=== PATIENT | female | born 1935 | race Caucasian/White ===

== ENCOUNTER → 2016-08-25 | Day surgery (SDC) | payer OTHER, MEDICARE ==
[2016-08-19 11:26] VITALS: Ht 165.1 cm; Wt 90.0 kg
[~2016-08-25] VITALS: Ht 165.1 cm; Wt 90.0 kg
[~2016-08-25] MED LIST: ACET-1175 PO; ALPR-411 PO; AMLO-114 PO; AMOX500C3 PO; BUPR100T8 PO; CALC12502 PO; CHOL100010 PO; CHOL200010 PO; CLCC1250 PO; CLON1TAB3 PO; CYAN10005 PO; DIPH25CA37 PO; DIPH25CA5 PO; FENT75DI2 PO; FURO20TA PO; GABA1CAP5 PO; IVIG IV; LEVA45AE INH; LIDO1PAD2 TOP; LIDO5DIS10 TD; LIDOCAINE HCL 2% 2 ML VIAL (20MG/ML) ONE; LTMOPS OP; LURA1TAB PO; NF656; OXYC-106 PO; POLY335025 PO; PROPOFOL IV EMULSION 10 MG/ML 20 ML VIAL IV ONE; TPRSR25 PO; XPNIN INH; ZINC1TAB PO
--- NOTE | 2016-08-25 11:35 | Endo History and Physical ---
History & Physical Date of Service: Aug 25, 2016. Chief Complaint: history of colon polyps Referring Physician: Dr. Janice Magana History of Present Illness h/o polyps Past Medical History Neurological Disorder, Arthritis, Gastrointestinal Disorder, Reflux, Hypertension, COPD, Thyroid Disease Past Surgical History Hx Cardiac Surgery: No Hx Internal Defibrillator: No Hx Pacemaker: No Hx Abdominal Surgery: Yes (OPEN MOISÉS) Hx of Implantable Prosthesis: No Hx Post-Op Nausea and Vomiting: No Hx Cancer Surgery: No Hx Thoracic Surgery: No Hx Orthopedic: Yes (LEFT ANJU, RT TKA, RT/LEFT ULNAR NERVE TRANSP, LEFT/RT CATARACT) Hx Urinary Tract Surgery: No Family History Colon CA, Polyp Social History Smoking Status: Current Some Day Smoker Hx Substance Use: Yes (SEE MED REC) Hx Alcohol Use: No Allergies Coded Allergies: Prednisolone (Verified Allergy, Severe, ANAPHYLAXIS, 08/19/16) Prednisone (Verified Allergy, Severe, ANAPHYLAXIS, 08/19/16) Shellfish (Verified Allergy, Mild, RASH, 08/19/16) Tomato (Verified Allergy, Mild, RASH, 08/19/16) COOKED TOMATO PRODUCTS Metronidazole (Verified Allergy, Unknown, RASH, FEVER, 08/19/16) Current Medications Reported Home Medications Medications Dose Route/Sig Max Daily Dose Days Date Category Dose Instructions Lotemax (Loteprednol Etabonate) 150 Drops/10 Ml Susp 1 Drops OP QID PRN 08/19/16 Reported Wellbutrin Sr (Bupropion HCl) 100 Mg Ertab 100 Mg PO QAM 08/19/16 Reported Latuda (Lurasidone Hcl) 20 Mg Tab 20 Mg PO HS 03/24/16 Reported Metoprolol Succinate ER (Metoprolol Succinate) 25 Mg Tabcr 1.5 Tab PO QAM 12/04/15 Reported Zinc (Zinc Gluconate) 50 Mg Tab 50 Mg PO QAM 08/18/15 Reported Xopenex Hfa (Levalbuterol Tartrate) Aer 2 Puff INH Q6 PRN 08/18/15 Reported Amoxil (Amoxicillin) 500 Mg Cap 2,000 Mg PO DAILY PRN 08/18/15 Reported Neurontin (Gabapentin) 400 Mg Cap 1 Dose PO BID 30 05/23/15 Reported 1 TAB IN AM 1-2 TAB IN PM PRN Percocet 10MG/325MG (Oxycodone/Acetaminophen) Tab 1 Tab PO DAILY PRN 04/09/15 Reported Fentanyl 75 Mcg Tdsy 75 Mg PO [id number] 04/09/15 Reported Norvasc (Amlodipine Besylate) 10 Mg Tab 10 Mg PO HS 11/04/14 Reported Benadryl (Diphenhydramine Hcl) 25 Mg Cap 1 Cap PO DIRECTED 06/29/13 Reported TO TAKE BEFORE IVIG INFUSION Tylenol (Acetaminophen) 325 Mg Tab 650 Mg PO DIRECTED PRN 06/29/13 Reported TO TAKE PRIOR TO IVIG INFUSION [Ivig] 30 Gm IV Q4WK 06/29/13 Reported Lasix (Furosemide) 20 Mg Tab 20 Mg PO QAM 06/29/13 Reported Lidoderm Patch 5% Patch (Lidocaine) 1 Patch Tdsy 1 Patch TD PRN 06/29/13 Reported Miralax (Polyethylene Glycol 3350) 1 Pow Pow 17 Gm PO BID PRN 05/31/13 Reported Os-Jeff 500 * (Calcium Carbonate) 500 Mg Tab 500 Mg PO BID 05/20/11 Reported Vitamin B-12 (Cyanocobalamin) 1,000 Mcg Tab 1,000 Mcg PO QAM 03/30/10 Reported Vitamin D (Cholecalciferol) 1,000 Inter.unit Tab 2,000 Inter.unit PO QAM 03/30/10 Reported Klonopin (Clonazepam) 1 Mg Tab 0.5 Mg PO HS 03/30/10 Reported Xanax (Alprazolam) 0.5 Mg Tab 0.5 Mg PO TID PRN 10/28/08 Reported Vital Signs Weight (Kilograms): 90 Height (Feet): 5 Height (Inches): 5 Date Time Temp Pulse Resp B/P Pulse Ox O2 Delivery O2 Flow Rate FiO2 08/25/16 10:17 36 62 20 128/61 96 Room Air Physical Exam General Appearance: no apparent distress Respiratory/Chest: Auscultation: breath sounds normal Cardiovascular: Heart Auscultation: RRR Abdomen: Inspection & Palpation: soft Assessment and Plan H/o polyps - cscopy
--- NOTE | 2016-08-25 12:04 | Discharge Instructions ---
Endoscopy Patient Instructions Date / Procedure(s) Performed Aug 25, 2016. Colonoscopy Allergy Information Coded Allergies: Prednisolone (Verified Allergy, Severe, ANAPHYLAXIS, 08/19/16) Prednisone (Verified Allergy, Severe, ANAPHYLAXIS, 08/19/16) Shellfish (Verified Allergy, Mild, RASH, 08/19/16) Tomato (Verified Allergy, Mild, RASH, 08/19/16) COOKED TOMATO PRODUCTS Metronidazole (Verified Allergy, Unknown, RASH, FEVER, 08/19/16) Discharge Date / Findings Aug 25, 2016. Colon polyps, diverticulosis Provider Instructions Activity Restrictions - No exercising or heavy lifting for 24 hours. - Do not drink alcohol the day of the procedure. - Do not drive a car or operate machinery until the day after the procedure. - Do not make any important decisions or sign important papers in 24 hours after the procedure. Following Day: - Return to full activity which may include returning to work/school. Diet Start your diet with liquids and light foods (jello, soup, juice, toast). Then eat your usual diet if not nauseated. Treatment For Common After Affects For mild abdominal pain, bloating, or excessive gas: - Rest - Eat lightly - Lie on right side Follow-Up Information Follow-up with Dr. Janice Magana as scheduled Anesthesia Information What You Should Know You have had a procedure that required some medicine to reduce anxiety and discomfort. This treatment is called moderate sedation. After receiving the treatment, you may be sleepy, but you will be able to breathe on your own. The effects of the treatment may last for several hours. Follow these instructions along with Activity/Diet recommendations noted above: * Do NOT do anything where dizziness or clumsiness would be dangerous. * Rest quietly at home today, then you can be up and about tomorrow. * Have a responsible person stay with you the rest of today. * You may have had an I.V. today. If so, you may take the dressing off later today. Recommendations Call your doctor if: * Trouble breathing * Continuous vomiting for more than 24 hours * Temperature above 101 degrees * Severe abdominal pain or bloating * Pain not relieved by pain medicine ordered * There is increased drainage or redness from any incision * A large amount of rectal bleeding greater than 2-3 tablespoons. (If you had a polyp/s removed or have hemorrhoids, a small amount of blood - from the rectum is to be expected.) * You have any unanswered questions or concerns. IN THE EVENT OF A SERIOUS EMERGENCY, GO TO THE NEAREST EMERGENCY ROOM Your discharge instructions were prepared by provider Radha Curtis. Patient Instructions Signature Page Shira Patel Patient (or Guardian) Signature/Date: I have read and understand the instructions given to me by my caregivers. Caregiver/RN/Doctor Signature/Date: The above-named patient and/or guardian has received patient instructions on this date. + Original Patient Signature Page (only) stays with chart. Please make copy for patient.
--- NOTE | 2016-08-25 12:04 | GI REPORT ---
Procedure Date: 08/25/2016 11:37 AM Procedure: Colonoscopy Indications: High risk colon cancer surveillance: Personal history of colonic polyps Medicines: See the Anesthesia note for documentation of the administered medications Complications: No immediate complications. Estimated Blood Loss: Estimated blood loss: none. Procedure: Pre-Anesthesia Assessment: - ASA Grade Assessment: III - A patient with severe systemic disease. After I obtained informed consent, the scope was passed under direct vision. Throughout the procedure, the patient's blood pressure, pulse, and oxygen saturations were monitored continuously. The scope was introduced through the anus and advanced to the terminal ileum. The colonoscopy was performed without difficulty. The patient tolerated the procedure well. The quality of the bowel preparation was good. Findings: The perianal and digital rectal examinations were normal. Multiple small and large-mouthed diverticula were found in the entire colon. Two sessile polyps were found in the transverse colon and in the ascending colon. The polyps were 1 to 2 mm in size. These polyps were removed with a cold biopsy forceps. Resection and retrieval were complete. The exam was otherwise without abnormality. Impression: - Diverticulosis in the entire examined colon. - Two 1 to 2 mm polyps in the transverse colon and in the ascending colon, removed with a cold biopsy forceps. Resected and retrieved. - The examination was otherwise normal. Recommendation: - Discharge patient to home. Radha Schroeder M.D. Radha Schroeder MD 08/25/2016 12:03:29 PM This report has been signed electronically. Note Initiated On: 08/25/2016 11:37 AM
[2016-08-25 12:39] VITALS: BP 127/47; PULSE 62; O2SAT 97
--- NOTE | 2016-08-25 12:44 | Anesthesiology Progress Note ---
Anesthesia Post Op Note Date & Time Aug 25, 2016 at 12:43 Vital Signs Pain Intensity: 0 Vital Signs Past 12 Hours Date Time Temp Pulse Resp B/P Pulse Ox O2 Delivery O2 Flow Rate FiO2 08/25/16 12:39 62 20 127/47 97 Room Air 08/25/16 12:25 59 20 117/47 97 Room Air 08/25/16 12:11 60 20 115/47 96 Room Air 08/25/16 10:17 36 62 20 128/61 96 Room Air Notes Mental Status: alert / awake / arousable Nausea / Vomiting: adequately controlled Pain: adequately controlled Airway Patency, RR, SpO2: stable & adequate BP & HR: stable & adequate Hydration State: stable & adequate Anesthetic Complications: no major complications apparent
== END | disposition home or self-care (01) ==
LOC: C.GI 08:50
PROVIDERS: ATTEND Internal Medicine Gastroenterology
DX: Z12.11 Encounter for screening for malignant neoplasm of colon (principal); Z86.010 Personal history of colon polyps; K57.90 Diverticulosis of intestine, part unspecified, without perforation or abscess without bleeding; D12.3 Benign neoplasm of transverse colon; J44.9 Chronic obstructive pulmonary disease, unspecified; I10 Essential (primary) hypertension; M19.90 Unspecified osteoarthritis, unspecified site; F41.9 Anxiety disorder, unspecified; F32.9 Major depressive disorder, single episode, unspecified; Z90.49 Acquired absence of other specified parts of digestive tract; Z96.642 Presence of left artificial hip joint; Z96.651 Presence of right artificial knee joint; Z98.41 Cataract extraction status, right eye; Z98.42 Cataract extraction status, left eye; Z80.0 Family history of malignant neoplasm of digestive organs; F17.200 Nicotine dependence, unspecified, uncomplicated; Z91.013 Allergy to seafood; Z91.018 Allergy to other foods; Z68.33 Body mass index [BMI] 33.0-33.9, adult

== ENCOUNTER → 2016-10-07 | Outpatient (CLI) | payer OTHER, MEDICARE ==
[~2016-10-07] MED LIST changes: -AMOX500C3 PO; -CALC12502 PO; -CHOL200010 PO; -DIPH25CA5 PO; -LEVA45AE INH; -LIDO1PAD2 TOP; -LIDOCAINE HCL 2% 2 ML VIAL (20MG/ML) ONE; -NF656; -PROPOFOL IV EMULSION 10 MG/ML 20 ML VIAL IV ONE
[2016-10-07 11:09] LABS: MEAN CELL VOLUME 90.9 fL (80-100); MEAN CORPUSCULAR HEMOGLOBIN 30.4 pg (25-34); MEAN CORPUSCULAR HGB CONC 33.4 g/dl (32-36); PLATELET COUNT 295 K/uL (130-400); RED BLOOD COUNT 4.51 M/uL (4.2-5.4); WHITE BLOOD COUNT 10.29 K/uL (4.8-10.8)
[2016-10-07 11:33] LABS: ESTIMATED AVERAGE GLUCOSE 123 mg/dl; HA1C FLAG Normal (Normal)
[2016-10-07 11:49] LABS: ALT/SGPT 18 U/L (12-78); BLOOD UREA NITROGEN 15 mg/dl (7-18); BUN/CREATININE RATIO 17.1 (10-20); CALCIUM 9.1 mg/dl (8.5-10.1); CARBON DIOXIDE 26 mmol/L (21-32); CHLORIDE 104 mmol/L (98-107); CHOLESTEROL 187 mg/dl (0-200); CREATININE 0.86 mg/dl (0.60-1.20); GLUCOSE 103 mg/dl (70-99); POTASSIUM 4.5 mmol/L (3.5-5.1); SODIUM 140 mmol/L (136-145)
[2016-10-07 11:59] LABS: ALKALINE PHOSPHATASE 78 U/L (45-117); AST/SGOT 16 U/L (15-37); CHOLESTEROL/HDL RATIO 2.9; HDL CHOLESTEROL 65 mg/dl; LDL CHOLESTEROL CALCULATED 102 mg/dl; TRIGLYCERIDES 98 mg/dl (0-150); VERY LOW DENSITY LIPOPROT CALC 20 mg/dl
--- NOTE | 2016-10-12 10:33 | CODING QUERY MEDICAL NECESSITY ---
SUPPORTING DIAGNOSIS NEEDED A supporting diagnosis is required for the test/procedure performed on this patient in order for us to be reimbursed by the patient's insurance. Please provide a supporting diagnosis for the following test/procedure listed below next to the test name along with your signature. *If there is no additional diagnosis for this patient that would support the following test/procedure please document that below next to the test/procedure. Test(s)/Procedure(s) that require a supporting diagnosis: * GLYCATED HEMOGLOBIN DIAGNOSIS: * DOS: 10/07/16 Provider Signature: Date: Thank you Cherelle Cordoba Health Information Management Once completed, please kindly fax back to [phone] For questions please call [phone]
== END | disposition home or self-care (01) ==
LOC: C.LAB 10:17
PROVIDERS: ATTEND Family Medicine
DX: Z13.1 Encounter for screening for diabetes mellitus (principal); I10 Essential (primary) hypertension; G61.81 Chronic inflammatory demyelinating polyneuritis; M81.0 Age-related osteoporosis without current pathological fracture; Z13.220 Encounter for screening for lipoid disorders

== ENCOUNTER 2017-08-13 17:36 | Emergency (ER) | payer OTHER, MEDICARE ==
[~2017-08-13] VITALS: Ht 165.1 cm; Wt 89.8 kg
[~2017-08-13 17:36] MED LIST changes: -CLON1TAB3 PO; -FENT75DI2 PO
[2017-08-13 17:39] VITALS: TEMP 36.9; Ht 165.1 cm; Wt 89.8 kg
[2017-08-13] MEDS ORDERED: ALBUT/IPRATROP 3MG/0.5MG NEB 3 ML VIAL INH STA (17:51)
[2017-08-13 18:10] VITALS: O2SAT 95
[2017-08-13 18:20] LABS: BASO % 0.5 %; BASO ABS # 0.04 K/uL (0-0.2); COMPLETE YES; EOS % 1.6 %; IG% 0.3 %; LYMPH % 29.1 %; LYMPH ABS # 2.16 K/uL (1.2-3.4); MEAN CELL VOLUME 96.3 fL (80-100); MEAN CORPUSCULAR HEMOGLOBIN 32.6 pg (25-34); MEAN CORPUSCULAR HGB CONC 33.8 g/dl (32-36); MEAN PLATELET VOLUME 8.8 fL (7.4-10.4); MONO % 9.9 %; NEUT % 58.6 %; PLATELET COUNT 239 K/uL (130-400); RED BLOOD COUNT 4.36 M/uL (4.2-5.4); WHITE BLOOD COUNT 7.41 K/uL (4.8-10.8)
[2017-08-13] MEDS ORDERED: DIPH25CA5 PO (18:28)
[2017-08-13] MEDS ORDERED: CHOL200010 PO (18:28)
[2017-08-13] MEDS ORDERED: NF656 (18:28)
[2017-08-13] MEDS ORDERED: LEVA45AE INH (18:28)
[2017-08-13] MEDS ORDERED: LIDO1PAD2 TOP (18:28)
[2017-08-13] MEDS ORDERED: CALC12502 PO (18:28)
[2017-08-13 18:39] LABS: ALT/SGPT 20 U/L (12-78); AST/SGOT 16 U/L (15-37); BLOOD UREA NITROGEN 11 mg/dl (7-18); BUN/CREATININE RATIO 12.2 (10-20); CALCIUM 8.9 mg/dl (8.5-10.1); CARBON DIOXIDE 25 mmol/L (21-32); CHLORIDE 105 mmol/L (98-107); GLUCOSE 182 mg/dl (70-99); POTASSIUM 3.3 mmol/L (3.5-5.1); SODIUM 136 mmol/L (136-145)
[2017-08-13 18:44] LABS: ALB/GLOB RATIO 0.9 (0.9-2); ALKALINE PHOSPHATASE 76 U/L (45-117)
[2017-08-13] MEDS ORDERED: OXYMETAZOLINE HCL 0.05% NA SPR 15 ML BTL STA (19:38)
--- NOTE | 2017-08-13 19:40 | EMERGENCY ROOM VISIT NOTE ---
History First contact with patient: 17:43 Chief Complaint: RESPIRATORY PROBLEMS Stated Complaint: CONGESTION,FEVER,DIFFICULTY BREATHING Nursing Triage Summary: Triage Notes: Patient presents ambulatory to triage with family with c/o "I have been sick for over a week and spoke to my PCP yesterday. I was prescribed Doxycycline and advised by my PCP to report to the ED if wheezing worsened. It has and I am here" History of Present Illness The patient is a 81 year old female who presents to the Emergency Room via private vehicle accompanied by male with complaints of "congestion, fever, difficulty breathing". The patient states about 7 days ago she began with nasal drainage, that progressed to sore throat and now seems to settle in her chest. She states that she now has wheezing. She has a history of COPD. She states that when she lays down at night it seems to make a little bit worse. She states that last night she slept 2.5 hours because of her current symptoms. She notes minimal pain rate in the sternal region consistent with her URI. There is associated nausea from coughing so much. She denies abdominal pain, or vomiting. She notes that her family doctor called her in doxycycline yesterday but informed her that if the wheezing were to worsen she is to go to the hospital. Review of Systems A complete 10-point Review of Systems was discussed with the patient, with pertinent positives and negatives listed in the History of Present Illness. All remaining Review of Systems questions can be considered negative unless otherwise specified. Past Medical/Surgical History Medical Problems: (1) MGUS (monoclonal gammopathy of unknown significance) Family History Noncontributory Social History Smoking Status: Current Every Day Smoker Alcohol Use: none Marital Status: single Current/Historical Medications Scheduled Amlodipine (Norvasc), 10 MG PO HS Bupropion (Wellbutrin Sr), 150 MG PO QAM Calcium Carbonate (Os-Jeff 500), 500 MG PO BID Cholecalciferol (Vitamin D), 1 CAP PO DAILY Cyanocobalamin (Vitamin B-12), 1,000 MCG PO QAM Diphenhydramine Hcl (Benadryl), 25 MG PO DIRECTED Furosemide (Lasix), 20 MG PO QAM Gabapentin (Neurontin), 1 DOSE PO BID Lidocaine (Lidocaine), 1 PATCH TOP TID Lurasidone Hcl (Latuda), 40 MG PO HS Metoprolol Succinate (Metoprolol Succinate ER), 50 MG PO QAM Zinc Gluconate (Zinc), 50 MG PO QAM [Ivig], 30 GM IV Q4WK Scheduled PRN Acetaminophen (Tylenol), 650 MG PO DIRECTED PRN for Pain Alprazolam (Xanax), 0.5 MG PO TID PRN for Anxiety Levalbuterol Tartrate (Levalbuterol Tartrate Hfa), 2 PUFFS INH Q6 PRN for Shortness of Breath Loteprednol Etabonate (Lotemax), 1 DROPS OP QID PRN for PRN Oxycodone/Acetaminophen 10MG/325MG (Percocet 10MG/325MG), 1 TAB PO DAILY PRN for Pain Polyethylene Glycol 3350 (Miralax), 17 GM PO BID PRN for Constipation Physical Exam Vital Signs Date Time Temp Pulse Resp B/P (MAP) Pulse Ox O2 Delivery O2 Flow Rate FiO2 08/13/17 19:54 72 20 150/68 98 08/13/17 19:24 74 08/13/17 18:19 98 Room Air 08/13/17 18:17 77 20 150/68 98 Room Air 08/13/17 18:10 95 Room Air 08/13/17 17:39 36.9 89 20 173/83 95 Room Air Physical Exam VITAL SIGNS - Vital signs and nursing notes were reviewed. Stable. Hypertensive. GENERAL - 81-year-old female appearing her stated age who is in no acute distress. Communicates well with provider and answers questions appropriately. SKIN - Without rashes. LUNGS - Chest wall symmetric without accessory muscle use, intercostals retractions, or central cyanosis. Expiratory wheezes noted bilaterally. CARDIAC - RRR with S1/S2. No murmur, rubs, or gallops appreciated. EXTREMITIES - No clubbing or peripheral cyanosis. No pretibial edema present. + 5/5 strength noted in UE/LE bilaterally. Medical Decision & Procedures ER Provider Diagnostic Interpretation: CHEST 2 VIEWS ROUTINE HISTORY: Cough, fever, congestion COMPARISON: None. FINDINGS: The lungs are clear. Cardiac silhouette is normal in size. No pleural effusions. No pneumothorax. Scoliosis. The lungs remain mildly hyperexpanded. Old compression deformity within the lower thoracic spine, unchanged. IMPRESSION: No significant change compared to the prior study. No acute process. Electronically signed by: Shawn Presley M.D. 08/13/2017 8:22 PM Dictated Date/Time: 08/13/2017 8:21 PM Laboratory Results 08/13/17 18:10 Red Blood Count 4.36, Mean Corpuscular Volume 96.3, Mean Corpuscular Hemoglobin 32.6, Mean Corpuscular Hemoglobin Concent 33.8, Mean Platelet Volume 8.8, Neutrophils (%) (Auto) 58.6, Lymphocytes (%) (Auto) 29.1, Monocytes (%) (Auto) 9.9, Eosinophils (%) (Auto) 1.6, Basophils (%) (Auto) 0.5, Neutrophils # (Auto) 4.34, Lymphocytes # (Auto) 2.16, Monocytes # (Auto) 0.73, Eosinophils # (Auto) 0.12, Basophils # (Auto) 0.04 08/13/17 18:10 Test 08/13/17 18:10 White Blood Count 7.41 K/uL (4.8-10.8) Red Blood Count 4.36 M/uL (4.2-5.4) Hemoglobin 14.2 g/dL (12.0-16.0) Hematocrit 42.0 % (37-47) Mean Corpuscular Volume 96.3 fL (80-100) Mean Corpuscular Hemoglobin 32.6 pg (25-34) Mean Corpuscular Hemoglobin Concent 33.8 g/dl (32-36) Platelet Count 239 K/uL (130-400) Mean Platelet Volume 8.8 fL (7.4-10.4) Neutrophils (%) (Auto) 58.6 % Lymphocytes (%) (Auto) 29.1 % Monocytes (%) (Auto) 9.9 % Eosinophils (%) (Auto) 1.6 % Basophils (%) (Auto) 0.5 % Neutrophils # (Auto) 4.34 K/uL (1.4-6.5) Lymphocytes # (Auto) 2.16 K/uL (1.2-3.4) Monocytes # (Auto) 0.73 K/uL (0.11-0.59) Eosinophils # (Auto) 0.12 K/uL (0-0.5) Basophils # (Auto) 0.04 K/uL (0-0.2) RDW Standard Deviation 47.9 fL (36.4-46.3) RDW Coefficient of Variation 13.5 % (11.5-14.5) Immature Granulocyte % (Auto) 0.3 % Immature Granulocyte # (Auto) 0.02 K/uL (0.00-0.02) Anion Gap 6.0 mmol/L (3-11) Est Creatinine Clear Calc Drug Dose 56.1 ml/min Estimated GFR () 70.5 Estimated GFR (Non- 60.8 BUN/Creatinine Ratio 12.2 (10-20) Calcium Level 8.9 mg/dl (8.5-10.1) Total Bilirubin 0.4 mg/dl (0.2-1) Aspartate Amino Transf (AST/SGOT) 16 U/L (15-37) Alanine Aminotransferase (ALT/SGPT) 20 U/L (12-78) Alkaline Phosphatase 76 U/L (45-117) Troponin I < 0.015 ng/ml (0-0.045) Total Protein 7.4 gm/dl (6.4-8.2) Albumin 3.4 gm/dl (3.4-5.0) Globulin 4.0 gm/dl (2.5-4.0) Albumin/Globulin Ratio 0.9 (0.9-2) Medications Administered Medications (Trade) Dose Ordered Sig/Reid Route Start Time Stop Time Status Last Admin Dose Admin Albuterol/ Ipratropium (Duoneb) 3 ml NOW STAT INH 08/13/17 17:51 08/13/17 17:53 DC 08/13/17 18:11 3 ML Oxymetazoline HCl (Afrin 0.05% Nasal [place]) 1 sprays NOW STAT NA 08/13/17 19:38 08/13/17 19:39 DC 08/13/17 19:48 1 SPRAYS Medical Decision Patient was seen and evaluated as above. She presents with today with congestion, fever, difficulty breathing. Vital signs are stable. She is hypertensive likely secondary to situation. She is to follow-up with her family doctor regarding her symptoms here today. Decision was made to obtain IV access, and the above workup was performed. Chest x-ray read by myself and the attending as well as radiologist to reveal no acute process. I suspect she is likely experiencing a COPD exacerbation secondary to her viral URI it is suspected. I do not suspect PE. I do not suspect PR. Troponins negative. EKG when compared to previous appears to be no significant change. She was given 15 minute DuoNeb was feeling slightly better. She declined further DuoNeb says they make her feel jittery. She has an anaphylactic reaction to prednisone. At this time I believe that continuing the doctor second is appropriate, although this is likely viral given her underlying comorbidities believe this is reasonable. She is only had 3 doses and I believe that more time as needed for its efficacy. She started was educated upon worrisome symptoms which to return, had questions prior to discharge, and was discharged home in good condition. In evaluation treatment this patient following differential diagnoses were entertained: Viral URI, pneumonia, CHF exacerbation, COPD exacerbation, among others. Impression Primary Impression: URI (upper respiratory infection) Additional Impression: Hypokalemia Departure Information Dispostion Home / Self-Care Condition GOOD Referrals Janice Erickson DO (PCP) Patient Instructions My [facility] Additional Instructions You were seen in the emergency Department for an upper respiratory tract infection. At this time your blood work and chest x-ray did not show any evidence of concerning infection or pneumonia. You may continue the doxycycline. Please drink plenty of fluids, and stay well rested. Please return with any new/concerning symptoms. Potassium slightly low today, Please follow up with family doctor. Problem Qualifiers
[2017-08-13 19:54] VITALS: BP 150/68; PULSE 72; O2SAT 98
--- NOTE | 2017-08-13 20:24 | DIAGNOSTIC IMAGING REPORT ---
CHEST 2 VIEWS ROUTINE HISTORY: Cough, fever, congestion COMPARISON: None. FINDINGS: The lungs are clear. Cardiac silhouette is normal in size. No pleural effusions. No pneumothorax. Scoliosis. The lungs remain mildly hyperexpanded. Old compression deformity within the lower thoracic spine, unchanged. IMPRESSION: No significant change compared to the prior study. No acute process. Electronically signed by: Shawn Presley M.D. 08/13/2017 8:22 PM Dictated Date/Time: 08/13/2017 8:21 PM
== END 2017-08-13 19:58 | disposition home or self-care (01) ==
LOC: C.EDB 17:37 → C.EDC 19:58
DX: J44.9 Chronic obstructive pulmonary disease, unspecified (principal); E87.6 Hypokalemia; F17.200 Nicotine dependence, unspecified, uncomplicated; R03.0 Elevated blood-pressure reading, without diagnosis of hypertension

== ENCOUNTER → 2017-09-23 | Outpatient (CLI) | payer OTHER, MEDICARE ==
[~2017-09-23] MED LIST changes: +CALC12502 PO; -CHOL100010 PO; +CHOL200010 PO; -CLCC1250 PO; -DIPH25CA37 PO; +DIPH25CA5 PO; +LEVA45AE INH; +LIDO1PAD2 TOP; -LIDO5DIS10 TD; -XPNIN INH
--- NOTE | 2017-09-26 07:41 | MAMMOGRAPHY REPORT ---
BILATERAL DIGITAL SCREENING MAMMOGRAM TOMOSYNTHESIS WITH CAD: 09/23/2017 CLINICAL HISTORY: Routine screening. Patient has no complaints. TECHNIQUE: Breast tomosynthesis in addition to standard 2D mammography was performed. Current study was also evaluated with a Computer Aided Detection (CAD) system. COMPARISON: Comparison is made to exams dated: 12/05/2015 mammogram, 09/19/2014 mammogram, 03/18/2014 m ammogram, 09/21/2013 mammogram, 09/17/2013 mammogram, and 08/06/2010 mammogram - [facility]. BREAST COMPOSITION: The tissue of both breasts is almost entirely fatty. FINDINGS: No suspicious masses, calcifications, or areas of architectural distortion are noted in ei ther breast. There has been no significant interval change compared to prior exams. Bilateral benign -appearing calcifications are not significantly changed. IMPRESSION: ACR BI-RADS CATEGORY 2: BENIGN There is no mammographic evidence of malignancy. A 1 year screening mammogram is recommended. The pa tient will receive written notification of the results. Approximately 10% of breast cancers are not detected with mammography. A negative mammographic report should not delay biopsy if a clinically suggestive mass is present. Cristy Enamorado M.D. ah/:09/23/2017 14:12:32 Principal Web Developer: Lin BAINS(Lexii)(M), [facility] letter sent: Normal 1/2 BI-RADS Code: ACR BI-RADS Category 2: Benign
== END | disposition home or self-care (01) ==
LOC: C.MAMM 13:13
PROVIDERS: ATTEND Family Medicine
DX: Z12.31 Encounter for screening mammogram for malignant neoplasm of breast (principal)

== ENCOUNTER → 2017-12-26 | Outpatient (CLI) | payer OTHER, MEDICARE ==
[~2017-12-26] MED LIST changes: +GABA-1220 PO; -GABA1CAP5 PO; +GADAVIST IV PRN; -OXYC-106 PO; +OXYC10TA80 PO
--- NOTE | 2017-12-26 12:23 | DIAGNOSTIC IMAGING REPORT ---
Brain MRI WITH AND WITHOUT CONTRAST HISTORY: R51 New onset of headaches after age 52 [id number] TECHNIQUE: Multiplanar multisequence MRI of the brain was performed both before and after the intravenous administration of contrast. COMPARISON STUDY: Outside hospital brain MRI 03/14/2009. FINDINGS: There is no mass, hematoma, midline shift, or acute infarct. The paranasal sinuses are clear. The mastoid air cells are clear. The ventricles and sulci demonstrate mild age-related involutional changes. Scattered foci of T2 hyperintensity seen within the periventricular and subcortical white matter are nonspecific but suggestive of mild microvascular ischemic changes. The major vascular flow voids at the skull base are well-maintained. Incidental note is made of a partially empty sella, unchanged. There is a 2 cm retention cysts within the floor of the left max a sinus. No fluid levels within the paranasal sinuses. 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 There is also small lacunar infarct within the right basal ganglia. No abnormal enhancement. IMPRESSION: No acute intracranial abnormality. Scattered foci of T2 hyperintensity seen within the periventricular and subcortical white matter are nonspecific but favor moderate microvascular ischemic change. Electronically signed by: Shawn Presley M.D. 12/26/2017 12:21 PM Dictated Date/Time: 12/26/2017 12:13 PM
--- NOTE | 2017-12-26 12:34 | DIAGNOSTIC IMAGING REPORT ---
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 TECHNIQUE: Multisequence, multiplanar MR imaging of the cervical spine was performed before and after the administration of intravenous contrast. IV contrast: 8.8 mL of Gadavist. COMPARISON: 12/18/2012. FINDINGS: Localizer images: Mucosal thickening in the left maxillary sinus. Slight straightening of normal cervical lordosis in the lower cervical spine secondary to multilevel degenerative change. Vertebral bodies demonstrate multilevel fatty endplate changes. A T2 hyperintense focal lesion in C6 demonstrates enhancement on postcontrast imaging, possibly fat poor hemangioma. Multilevel intervertebral disc desiccation and height loss with diffuse disc osteophyte complexes. Degenerative changes further detailed below: C2-3: No significant neural foraminal or spinal canal stenosis. C3-4: Trace disc osteophyte complex and ligamentum flavum hypertrophy without significant spinal canal or neural foraminal narrowing. C4-5: Disc osteophyte complex/uncovertebral hypertrophy and ligamentum flavum thickening result in circumferential effacement of the thecal sac with mild contouring of the spinal cord. CSF signal intensity is preserved. Moderate bilateral neural foraminal narrowing. C5-6: Small disc osteophyte complex/uncovertebral hypertrophy with mild effacement of the ventral thecal sac. Moderate right and severe left neural foraminal narrowing. C6-7: Uncovertebral hypertrophy results in mild bilateral neural foraminal narrowing. No second spinal canal stenosis. C7-T1: Disc osteophyte complex and ligamentum flavum hypertrophy result in circumferential effacement of the thecal sac with mild contouring of the spinal cord though CSF signal intensity is maintained. Severe bilateral neural foraminal narrowing. T1-2: Disc osteophyte complex. No significant neural foraminal or spinal canal narrowing. Cervical spinal cord with mild contouring as detailed above but otherwise normal in morphology. Axial merge sequence is highly degraded by motion artifact limiting assessment for abnormal spinal cord signal intensity. Postcontrast imaging demonstrates no abnormal enhancement of the spinal cord allowing for slight motion degradation. Paraspinal soft tissues within normal limits. IMPRESSION: 1. Multilevel degenerative changes with multilevel spinal canal stenosis secondary to disc osteophyte complexes and ligamentum flavum hypertrophy. This is most severe at C4-5 and C7-T1. Mild contouring of the spinal cord without convincing evidence of impingement, cord edema, or myelomalacia. No abnormal enhancement. 2. Multilevel neural foraminal narrowing most severe at C4-5 and C5-6. 3. T2 hyperintense enhancing lesion and C6. In the absence of known malignancy this may represent a fat poor hemangioma. Electronically signed by: Gabriel Hicks M.D. 12/26/2017 12:33 PM Dictated Date/Time: 12/26/2017 12:24 PM
== END | disposition home or self-care (01) ==
LOC: C.MRI 09:34
PROVIDERS: ATTEND Psychiatry & Neurology Neurology
DX: R51 Headache (principal); M48.02 Spinal stenosis, cervical region; M54.81 Occipital neuralgia; M50.30 Other cervical disc degeneration, unspecified cervical region; M25.78 Osteophyte, vertebrae; M24.28 Disorder of ligament, vertebrae; M47.812 Spondylosis without myelopathy or radiculopathy, cervical region

== ENCOUNTER → 2018-03-09 | Outpatient (CLI) | payer OTHER, MEDICARE ==
[~2018-03-09] MED LIST changes: -AMLO-114 PO; +AMLO10TA3 PO; -GADAVIST IV PRN; +OXYC-594 PO; -OXYC10TA80 PO
--- NOTE | 2018-03-09 10:34 | DIAGNOSTIC IMAGING REPORT ---
THYROID ULTRASOUND HISTORY: THYROID NODULE COMPARISON: Thyroid ultrasound 04/15/2014. FINDINGS: Right lobe: 5.0 x 3.2 x 2.8 cm. Redemonstration of the dominant solid cystic 4.2 x 2.5 x 2.3 cm nodule. This has slightly increased in size, previously measuring 3.1 x 2.7 x 2.1 cm. Stable 7 mm hypoechoic upper pole nodule. Left lobe: 4.2 x 1.3 x 1.3 cm. No significant change in the 6 mm hypoechoic interpolar nodule. Isthmus: 2 mm in thickness. No nodules. IMPRESSION: 1. Slight increase in size in the 4.2 x 2.5 x 2.3 cm dominant solid and cystic nodule within the right thyroid lobe. If not already performed, consider ultrasound-guided fine-needle aspiration. 2. Additional stable subcentimeter nodules as described above. Electronically signed by: Shawn Presley M.D. 03/09/2018 10:33 AM Dictated Date/Time: 03/09/2018 10:28 AM
== END | disposition home or self-care (01) ==
LOC: C.ULTR 09:46
PROVIDERS: ATTEND Family Medicine
DX: E04.2 Nontoxic multinodular goiter (principal)

== ENCOUNTER 2021-06-30 19:40 | Inpatient (IN) ==
[2021-06-30 20:43] LABS: Basophils # (auto) 0.03 K/uL (0-0.2); Basophils % (auto) 0.2 %; Eosinophils # (auto) 0.14 K/uL (0-0.5); Hematocrit (blood only) 34.8 % (37-47); Hemoglobin 12.1 g/dL (12.0-16.0); Immature Granulocytes # (auto) 0.03 K/uL (0.00-0.02); Immature Granulocytes % (auto) 0.2 %; Lymphocytes # (auto) 2.01 K/uL (1.2-3.4); Lymphocytes % (auto) 14.9 %; Mean Corpuscular Hemoglobin 31.3 pg (25-34); Mean Corpuscular Hgb Conc 34.8 g/dL (32-36); Mean Corpuscular Volume 89.9 fL (80-100); Mean Platelet Volume 9.2 fL (7.4-10.4); Monocytes # (auto) 1.61 K/uL (0.11-0.59); Neutrophils # (auto) 9.64 K/uL (1.4-6.5); Neutrophils % (auto) 71.7 %; Platelet Count 336 K/uL (130-400); RDW Coefficient of Variation 13.6 % (11.5-14.5); RDW Standard Deviation 44.2 fL (36.4-46.3); Red Blood Count 3.87 M/uL (4.2-5.4); White Blood Count 13.46 K/uL (4.8-10.8)
--- NOTE | 2021-06-30 21:01 | XRay Report ---
SINGLE VIEW CHEST CLINICAL HISTORY: Fall. FINDINGS: An AP, portable, upright chest radiograph is compared to study dated 08/13/2017 and correla yousuf with chest CT dated 11/24/2012. The examination is degraded by portable technique and patient rotat ion. The heart is enlarged noting atherosclerotic calcification of the thoracic aorta. There is pul monary vascular congestion with coarsening of interstitium. Small pleural effusions are noted. Scarri ng/atelectasis is noted at the lung bases. No pneumothorax is seen. The skeletal structures are osteo penic. The bony thorax is grossly intact. IMPRESSION: 1. Cardiomegaly with evidence of mild congestive failure. 2. Small pleural effusions. ACT 112: Negative or not required by law. Electronically signed by: Fidencio Bishop M.D. 06/30/2021 8:59 PM
[2021-06-30 21:03] LABS: Alanine Aminotransferase 28 U/L (12-78); Albumin Globulin Ratio 0.7 (0.9-2); Albumin Level 2.9 gm/dl (3.4-5.0); Alkaline Phosphatase 58 U/L (45-117); Aspartate Aminotransferase 28 U/L (15-37); BUN Creatinine Ratio 16.7 (10-20); Bilirubin,Total 0.3 mg/dl (0.2-1); Blood Urea Nitrogen 16 mg/dl (7-18); Calcium 9.3 mg/dl (8.5-10.1); Carbon Dioxide 21 mmol/L (21-32); Chloride 95 mmol/L (98-107); Est GFR (African American) 65.9 ml/min; Est GFR (Non-African American) 56.8 ml/min; Globulin 4.2 gm/dl (2.5-4.0); Glucose 138 mg/dl (70-99); Potassium 5.4 mmol/L (3.5-5.1); Sodium 125 mmol/L (136-145); Total Protein 7.1 gm/dl (6.4-8.2)
[2021-06-30] MEDS ORDERED: GLUCAGON 2 MG in SYRINGE 0 ML IV ONE (21:18)
--- NOTE | 2021-06-30 21:18 | Emergency Department Note ---
History of Present Illness General Chief complaint: Fall Stated complaint: FALL Time Seen by Provider: 06/30/21 20:54 Source: patient Mode of arrival: EMS Limitations: no limitations History of Present Illness Provider complaint: Dizziness, possible seizure Onset (ago): hour(s) Maximum Pain Intensity: 7 Relieved By: + none Exacerbated By: + movement Associated symptoms: no chest pain, no fever/chills, no headaches, no loss of appetite, no nausea/vomiting or no shortness of breath Treatments prior to arrival: none This is an 85-year-old female was brought to the emergency room via EMS and family at bedside due to concern for a possible seizure-like episode at home. Patient states she was seated and recalls feeling dizzy, and sons at bedside state they noticed seizure-like activity and the patient fell off the chair onto the floor. Patient states she has been more fatigued recently. Denies any prior history of vertigo. Patient denies any recent medication changes. Denies any change in diet or activity. No recent falls or trauma. I was initially called to the room as the nursing staff noted a recurrent event similar to what the sons had witnessed at home. Nursing staff here reports the episode lasted 15 to 20 seconds. Patient was not incontinent during this time, no postictal period. Upon my arrival to the room, there is no obvious seizure-like activity or tremors. Patient was awake and alert, stated she felt fatigued and slightly dizzy but denied any pain. Patient denies any prodromal chest pain or shortness of breath. Denies any recent fevers, chills, or URI symptoms. Patient denies any history of heart problems. Denies that she sees cardiology. Patient was noted to have an abnormal heart rate in the 30s upon entering the room. During my conversation with the patient while she was awake and talking this remained in the upper 30s and occasionally low 40s. Patient's blood pressure stable. Patient denies any prior history of a slow heart rate. Patient states she does take metoprolol. Upon review of her medication list no other rate controlling agents were noted. Pt seen during a time of high acuity and national emergency pandemic while wearing PPE. Home Medications Medication Instructions Recorded Confirmed Type Al hyd-Mg tr-alg ac-sod bicarb 80 1 tab PO DAILY PRN tab 12/19/18 06/30/21 History mg-14.2 mg chewable tablet (Gaviscon) cholecalciferol (vitamin D3) 125 5,000 units PO DAILY 12/19/18 06/30/21 History mcg (5,000 unit) capsule lurasidone 40 mg tablet (Latuda) 40 mg PO QPM 12/19/18 06/30/21 History polyethylene glycol 3350 17 gram 17 gm PO DAILY PRN 12/19/18 06/30/21 History oral powder packet (Miralax) simethicone 80 mg chewable tablet 80 mg PO DAILY PRN 12/19/18 06/30/21 History furosemide 20 mg tablet 20 mg PO DAILY PRN #90 tab 05/01/19 06/30/21 Rx zoledronic acid 5 mg/100 mL in See Rx Instructions .ROUTE 05/01/19 06/30/21 Rx mannitol 5 %-water intravenous .COMPLEX #100 ml piggybck (Reclast) cyanocobalamin (vitamin B-12) 1,000 mcg PO DAILY 10/19/19 06/30/21 History 1,000 mcg capsule bupropion HCl 100 mg tablet,12 hr 100 mg PO BID 10/31/19 06/30/21 History sustained-release (Wellbutrin SR) oxycodone-acetaminophen 5 mg-325 1 tab PO BID PRN tab 01/09/20 06/30/21 History mg tablet (Percocet) immune glob,gamma(IgG) 10 30 gm IV .COMPLEX 30 Days #3 ea 03/28/20 06/30/21 Rx gdep-sue-uucz-IgA 0 to 50 mcg/mL IV solution (Gammagard S-D (IgA < 1 mcg/mL)) pantoprazole 40 mg tablet,delayed 40 mg PO DAILY #90 tab 11/28/20 06/30/21 Rx release sertraline 50 mg tablet 50 mg PO DAILY #30 tab 06/15/21 06/30/21 Rx amlodipine 10 mg tablet 10 mg PO QPM 06/30/21 06/30/21 History gabapentin 400 mg capsule 800 mg PO BID 06/30/21 06/30/21 History metoprolol succinate 25 mg 50 mg PO QAM 06/30/21 06/30/21 History tablet,extended release 24 hr triamcinolone acetonide 0.1 % 1 applic TOP BID PRN 06/30/21 06/30/21 History topical ointment Allergies Allergy/AdvReac Type Severity Reaction Status Date / Time prednisone Allergy Severe ANAPHYLAXIS Verified 06/30/21 21:41 metronidazole Allergy Unknown RASH, FEVER Verified 06/30/21 21:41 LaMICtal TABS Allergy Mild rash Uncoded 06/30/21 21:41 Pred Forte SUSP Allergy Mild rash Uncoded 06/30/21 21:41 Flagyl TABS Allergy rash Uncoded 06/30/21 21:41 indomethacin AdvReac rash Uncoded 06/30/21 21:41 Past Med/Surg History Medical History (Updated 07/01/21 @ 13:02 by Gabriel Arriaza MD) Anxiety disorder Bipolar disorder Chronic asthmatic bronchitis Chronic constipation Chronic inflammatory demyelinating polyneuropathy Depression Diastolic dysfunction Diverticulosis Essential hypertension Gastroesophageal reflux disease without esophagitis Gout Insomnia Kyphoscoliosis Legally blind Lumbosacral radiculopathy at S1 MGUS (monoclonal gammopathy of unknown significance) Multiple pulmonary nodules Multiple thyroid nodules Occipital neuralgia Opiate dependence Osteoporosis PAC (premature atrial contraction) Prediabetes Premature ventricular contractions Right bundle branch block (RBBB) Sacroiliitis Spinal stenosis of cervical region Spinal stenosis of lumbar region with radiculopathy Spondylolisthesis of lumbar region Thoracic facet syndrome Tubular adenoma of colon Urinary incontinence Venous stasis dermatitis Vitamin D deficiency Surgical History H/O total knee replacement (2002) Right History of total hip arthroplasty (2008) Left Hx of cholecystectomy S/P arthroscopy of right shoulder w/ rotator cuff repair S/P cataract surgery S/P decompression of ulnar nerve at elbow (2001) b/l S/P eye surgery R eye discission of vitreous by pars plana approach Family History Mother Colon cancer Hypertension Father Acquired amyotrophic lateral sclerosis Hypertension Brother Acute pneumonitis Hypertension Sister Acute pneumonitis Hypertension Denies family history of Ovarian cancer Prostate cancer Coronary heart disease Heart disease Breast cancer Lung cancer Social History Smoking Status: Current every day smoker Tobacco Type: Cigarettes Age Started Using Tobacco: 20; Cigarettes Per Day: 3; Second Hand Exposure: Yes (son smokes outdoors with pt); Do You Dip or Chew Tobacco: No; Tobacco Cessation Education Requested by Patient: No Hx Alcohol Use: No Hx Substance Use: No Preferred Language: Danish Communication Ability: Effective Visual Impairment: Limited Hearing Ability: Normal Gravity Meter Observer Required: No Beliefs That Will Affect Care: Spiritism marital status: Single Current Living Situation: Family Current Living Situation Comment: Lives with sons. current occupational status: retired How many Children do You have: 5 How many Children do You have Comment: lost one child- 4 living Other Information That Helps Us Care for You: No Feels Safe at Home: Yes Safety Concerns: Feels Safe At This Time Childhood Exposure to Second-Hand Smoke: Yes caffeine: Yes during the past year weight has: increased > 10 lbs Dental Care, Regularly: Yes Physical Activity Frequency: 5-6 Times per Week Physical Activity Frequency Comment: walk Seatbelt Use: always Sunscreen Use: No Assistive Devices: Glasses and Oxygen - Continuous Review of Systems A total of 10 systems reviewed and were otherwise negative All systems reviewed & are unremarkable except as noted in HPI & below Physical Exam Vital Signs Vital Signs - 24 hr 06/30/21 19:46 06/30/21 21:10 06/30/21 21:30 Temperature 36.4 C L Temperature Source Oral Pulse Rate 42 L 40 L 37 L Pulse Rate [Apical] Pulse Rate from SpO2 Sensor 40 L 43 L Pulse Rhythm Regular Pulse Strength Normal Respiratory Rate 20 17 17 Respiratory Effort / Characteristics Non-Labored Spontaneous Respiratory Depth Normal Respiratory Pattern Regular Blood Pressure 141/90 H 132/45 L Blood Pressure [Right Arm] Blood Pressure Mean 107 74 Blood Pressure Mean [Right Arm] Blood Pressure Position Sitting Pulse Oximetry 91 90 93 Oxygen Delivery Method Room Air Nasal Cannula Nasal Cannula Oxygen Flow Rate 4 4 Sepsis Recent Fever Within 48 Hours No Sepsis New/Unexplained Change in Mental Status N/A Sepsis Action Taken by Nursing No Action Required 06/30/21 21:41 06/30/21 22:00 06/30/21 22:30 Temperature Temperature Source Pulse Rate 35 L 45 L Pulse Rate [Apical] 38 L Pulse Rate from SpO2 Sensor 34 L 45 L Pulse Rhythm Pulse Strength Respiratory Rate 20 20 19 Respiratory Effort / Characteristics Non-Labored Spontaneous Respiratory Depth Normal Respiratory Pattern Regular Blood Pressure Blood Pressure [Right Arm] 164/62 H Blood Pressure Mean Blood Pressure Mean [Right Arm] 96 Blood Pressure Position Pulse Oximetry 93 95 94 Oxygen Delivery Method Room Air Nasal Cannula Nasal Cannula Oxygen Flow Rate 4 4 Sepsis Recent Fever Within 48 Hours Sepsis New/Unexplained Change in Mental Status Sepsis Action Taken by Nursing GENERAL: alert, unwell appearing, well nourished, no distress, non-toxic EYE EXAM: normal conjunctiva, PERRL and EOM's grossly intact, no nystagmus OROPHARYNX: no exudate, no erythema, lips, buccal mucosa, and tongue normal and mucous membranes are moist NECK: supple, no nuchal rigidity, no adenopathy, non-tender LUNGS: Clear to auscultation. Normal chest wall mechanics, no w/r/r HEART: no murmurs, S1 normal and S2 normal, bradycardic in the upper 30s with apparent second-degree heart block ABDOMEN: abdomen soft, non-tender, normo-active bowel sounds, no masses, no elayne ound or guarding. BACK: Back is symmetrical on inspection and there is no deformity, no midline tenderness, no CVA tenderness. SKIN: no rashes and no bruising UPPER EXTREMITIES: upper extremities are grossly normal. FROM, nml pulses b/l. LOWER EXTREMITIES: No pitting edema. FROM, nml pulses b/l. NEURO EXAM: Normal sensorium, cranial nerves II-XII grossly intact, normal speech, no facial droop,no gross weakness of arms, no gross weakness of legs. Gross sensation intact. Course Course 2117: Discussed with Dr. Jimenez. 2127: Discussed with Dr. Hall, interventional cardiology. 2137: Patient and family at bedside updated on results thus far, concern given significant bradycardia and likely symptomatic events. 2201: Discussed with Dr. Jimenez again. Patient's blood pressure now dropped, will change isoproterenol to dopamine. Administered Medications Amlodipine Besylate (Amlodipine Besylate 5 Mg Tab) 10 mg PO QPM LEE Stop: 07/31/21 20:59 Last Admin: 07/01/21 21:54 Dose: 10 mg Documented by: [id number] Bupropion HCl (Bupropion Sr 100 Mg Tabcr) 100 mg PO BID LEE Stop: 07/31/21 08:59 Last Admin: 07/01/21 21:54 Dose: 100 mg Documented by: [id number] Admin: 07/01/21 13:07 Dose: 100 mg Documented by: [id number] Gabapentin (Gabapentin 400 Mg Cap) 800 mg PO BID LEE Stop: 07/31/21 08:59 Last Admin: 07/01/21 21:54 Dose: 800 mg Documented by: [id number] Admin: 07/01/21 13:07 Dose: 800 mg Documented by: [id number] Dopamine HCl/Dextrose (Dopamine / D5w) 400 mg in 250 mls @ 40.725 mls/hr IV .Q6H9M [facility]; Protocol Stop: 07/30/21 22:14 Last Titration: 07/02/21 00:57 Dose: 10 mcg/kg/min, 40.7 mls/hr Documented by: [id number] Cosigned by: [id number] Admin: 07/02/21 00:57 Dose: 10 mcg/kg/min, 40.7 mls/hr Documented by: [id number] Cosigned by: [id number] Titration: 07/01/21 19:01 Dose: 10 mcg/kg/min, 40.7 mls/hr Documented by: [id number] Cosigned by: [id number] Admin: 07/01/21 17:10 Dose: 10 mcg/kg/min, 40.7 mls/hr Documented by: [id number] Cosigned by: [id number] Titration: 07/01/21 15:57 Dose: 8 mcg/kg/min, 32.6 mls/hr Documented by: [id number] Cosigned by: [id number] Admin: 07/01/21 08:16 Dose: 8 mcg/kg/min, 32.6 mls/hr Documented by: [id number] Cosigned by: [id number] Titration: 07/01/21 07:11 Dose: 8 mcg/kg/min, 32.6 mls/hr Documented by: [id number] Cosigned by: [id number] Titration: 07/01/21 07:02 Dose: 8 mcg/kg/min, 32.6 mls/hr Documented by: [id number] Cosigned by: [id number] Titration: 07/01/21 05:00 Dose: 8 mcg/kg/min, 32.6 mls/hr Documented by: [id number] Titration: 07/01/21 02:29 Dose: 7 mcg/kg/min, 28.5 mls/hr Documented by: [id number] Titration: 07/01/21 01:37 Dose: 6 mcg/kg/min, 24.4 mls/hr Documented by: [id number] Titration: 07/01/21 00:33 Dose: 7 mcg/kg/min, 28.5 mls/hr Documented by: [id number] Titration: 06/30/21 22:43 Dose: 6.5 mcg/kg/min, 26.5 mls/hr Documented by: [id number] Titration: 06/30/21 22:30 Dose: 4.5 mcg/kg/min, 18.3 mls/hr Documented by: [id number] Admin: 06/30/21 22:11 Dose: 2.5 mcg/kg/min, 10.2 mls/hr Documented by: [id number] Cosigned by: [id number] Lurasidone HCl (Lurasidone Hcl 40 Mg Tab) 40 mg PO QPM LEE Stop: 07/31/21 20:59 Last Admin: 07/01/21 21:55 Dose: Not Given Documented by: [id number] Oxycodone/Acetaminophen (Oxycodone/Acetaminophen 5mg/325mg Tab) 1 tab PO Q4H PRN PRN Reason: Pain Stop: 07/15/21 15:38 Last Admin: 07/01/21 16:09 Dose: 1 tab Documented by: [id number] Pantoprazole Sodium (Pantoprazole 40 Mg Tab) 40 mg PO QAM LEE Stop: 07/31/21 08:59 Last Admin: 07/01/21 13:07 Dose: 40 mg Documented by: [id number] Sertraline HCl (Sertraline Hcl 50 Mg Tablet) 50 mg PO DAILY LEE Stop: 07/31/21 08:59 Last Admin: 07/01/21 13:10 Dose: 50 mg Documented by: [id number] Discontinued Medications Albuterol (Albut/Ipratrop 3mg/0.5mg Neb 3 Ml Vial) 3 ml NEB NOW STA Stop: 07/01/21 05:36 Last Admin: 07/01/21 05:46 Dose: 3 ml Documented by: [id number] Albuterol (Albut/Ipratrop 3mg/0.5mg Neb 3 Ml Vial) Confirm Administered Dose 3 ml .ROUTE .STK-MED ONE Stop: 07/01/21 05:43 Last Admin: 07/01/21 07:29 Dose: Not Given Documented by: [id number] Dopamine HCl/Dextrose (Dopamine 400mg / 250ml D5w) Confirm Administered Dose 400 mg IV .STK-MED ONE Stop: 06/30/21 22:08 Last Admin: 06/30/21 22:10 Dose: Not Given Documented by: [id number] Furosemide (Furosemide Inj 20 Mg/2 Ml Vial) 20 mg IV ONE ONE Stop: 06/30/21 23:46 Last Admin: 07/01/21 00:25 Dose: 20 mg Documented by: [id number] Furosemide (Furosemide 40 Mg/4 Ml Vial) 40 mg IV ONE ONE Stop: 07/01/21 05:57 Last Admin: 07/01/21 06:10 Dose: 40 mg Documented by: [id number] Furosemide (Furosemide 40 Mg/4 Ml Vial) 40 mg IV ONE ONE Stop: 07/01/21 15:13 Last Admin: 07/01/21 16:08 Dose: 40 mg Documented by: [id number] Glucagon (Glucagon For Inj 1 Mg Vial) Confirm Administered Dose 2 mg .ROUTE .STK-MED ONE Stop: 06/30/21 21:33 Last Admin: 06/30/21 21:39 Dose: Not Given Documented by: [id number] Glucagon 2 mg/ Syringe 2 mls @ 1 mls/min IV NOW ONE Stop: 06/30/21 21:19 Last Admin: 06/30/21 21:39 Dose: 1 mls/min Documented by: [id number] Sodium Chloride (Nss) 500 mls @ 80 mls/hr IV .Q6H15M LEE Stop: 07/30/21 21:29 Last Infusion: 07/01/21 01:38 Dose: 0 mls/hr Documented by: [id number] Infusion: 07/01/21 00:12 Dose: 0 mls/hr Documented by: [id number] Admin: 06/30/21 21:41 Dose: 80 mls/hr Documented by: [id number] Miscellaneous (Stat Iv Infusion Titration Per Protocol) 1 ea N/A NOW STA Stop: 06/30/21 21:29 Last Admin: 07/01/21 00:13 Dose: 1 ea Documented by: [id number] Critical Care Time Critical Care Time: Yes Total Critical Care Time: 46 Critical care of 46 min performed to assess and manage high likelihood of life- threatening dysrhythmia, involving labs and imaging performed with assessment to evaluate dysrhythmia diagnosis with frequent reassessment. This time includes bedside time, treatment discussions with patient/family/consultants, documentation time and excludes procedure time. Medical Decision Making Differential Diagnosis Differential diagnosis includes etiologies such as benign positional vertigo, dehydration, hypovolemia, anemia, tumor, infection, hypoglycemia, electrolyte abnormalities, cardiac sources, intracerebral event, toxicologic, neurologic, as well as others were entertained. Medical Records Attestation: I reviewed the patient's medical records. Home Medications Current Medication List: was personally reviewed by me Laboratory Data Attestation: I reviewed the patient's lab results. Result diagrams: 07/01/21 04:49 07/01/21 04:49 Lab Results 06/30/21 06/30/21 06/30/21 Range/Units 20:30 20:30 20:30 WBC 13.46 H (4.8-10.8) K/uL RBC 3.87 L (4.2-5.4) M/uL Hgb 12.1 (12.0-16.0) g/dL Hct 34.8 L (37-47) % MCV 89.9 (80-100) fL MCH 31.3 (25-34) pg MCHC 34.8 (32-36) g/dL RDW Std Deviation 44.2 (36.4-46.3) fL RDW Coeff of Court 13.6 (11.5-14.5) % Plt Count 336 (130-400) K/uL MPV 9.2 (7.4-10.4) fL Immature Gran % (Auto) 0.2 % Neut % (Auto) 71.7 % Lymph % (Auto) 14.9 % [place] % (Auto) 12.0 % Eos % (Auto) 1.0 % Baso % (Auto) 0.2 % Neut # (Auto) 9.64 H (1.4-6.5) K/uL Lymph # (Auto) 2.01 (1.2-3.4) K/uL [place] # (Auto) 1.61 H (0.11-0.59) K/uL Eos # (Auto) 0.14 (0-0.5) K/uL Baso # (Auto) 0.03 (0-0.2) K/uL Immature Gran # (Auto) 0.03 H (0.00-0.02) K/uL Sodium 125 L (136-145) mmol/L Potassium 5.4 H (3.5-5.1) mmol/L Chloride 95 L (98-107) mmol/L Carbon Dioxide 21 (21-32) mmol/L Anion Gap 9.0 (3-11) BUN 16 (7-18) mg/dl Creatinine 0.93 (0.6-1.2) mg/dl Est Cr Clr Drug Dosing Not Reportable Est GFR ( Amer) 65.9 ml/min Est GFR (Non-Af Amer) 56.8 ml/min BUN/Creatinine Ratio 16.7 (10-20) Glucose 138 H (70-99) mg/dl POC Glucose (70-99) mg/dl Calcium 9.3 (8.5-10.1) mg/dl Magnesium 2.2 (1.8-2.4) mg/dl Total Bilirubin 0.3 (0.2-1) mg/dl AST 28 (15-37) U/L ALT 28 (12-78) U/L Alkaline Phosphatase 58 (45-117) U/L Troponin I < 0.015 (0-0.045) ng/ml NT-Pro-B Natriuret Pep 2783 H (0-1800) pg/ml Total Protein 7.1 (6.4-8.2) gm/dl Albumin 2.9 L (3.4-5.0) gm/dl Globulin 4.2 H (2.5-4.0) gm/dl Albumin/Globulin Ratio 0.7 L (0.9-2) TSH 1.350 (0.300-4.500) uIu/ml Specimen Hemolysis Lyme Disease IgG Ab (Negative) Lyme Disease IgM Ab (Negative) COVID-19 Eval Order SARS-CoV-2 (PCR) (Negative) 06/30/21 06/30/21 06/30/21 Range/Units 20:30 21:29 21:45 WBC (4.8-10.8) K/uL RBC (4.2-5.4) M/uL Hgb (12.0-16.0) g/dL Hct (37-47) % MCV (80-100) fL MCH (25-34) pg MCHC (32-36) g/dL RDW Std Deviation (36.4-46.3) fL RDW Coeff of Court (11.5-14.5) % Plt Count (130-400) K/uL MPV (7.4-10.4) fL Immature Gran % (Auto) % Neut % (Auto) % Lymph % (Auto) % [place] % (Auto) % Eos % (Auto) % Baso % (Auto) % Neut # (Auto) (1.4-6.5) K/uL Lymph # (Auto) (1.2-3.4) K/uL [place] # (Auto) (0.11-0.59) K/uL Eos # (Auto) (0-0.5) K/uL Baso # (Auto) (0-0.2) K/uL Immature Gran # (Auto) (0.00-0.02) K/uL Sodium (136-145) mmol/L Potassium (3.5-5.1) mmol/L Chloride (98-107) mmol/L Carbon Dioxide (21-32) mmol/L Anion Gap (3-11) BUN (7-18) mg/dl Creatinine (0.6-1.2) mg/dl Est Cr Clr Drug Dosing Est GFR ( Amer) ml/min Est GFR (Non-Af Amer) ml/min BUN/Creatinine Ratio (10-20) Glucose (70-99) mg/dl POC Glucose 155 H (70-99) mg/dl Calcium (8.5-10.1) mg/dl Magnesium (1.8-2.4) mg/dl Total Bilirubin (0.2-1) mg/dl AST (15-37) U/L ALT (12-78) U/L Alkaline Phosphatase (45-117) U/L Troponin I (0-0.045) ng/ml NT-Pro-B Natriuret Pep (0-1800) pg/ml Total Protein (6.4-8.2) gm/dl Albumin (3.4-5.0) gm/dl Globulin (2.5-4.0) gm/dl Albumin/Globulin Ratio (0.9-2) TSH (0.300-4.500) uIu/ml Specimen Hemolysis Lyme Disease IgG Ab Negative (Negative) Lyme Disease IgM Ab Negative (Negative) COVID-19 Eval Order Covid19 at [facility] SARS-CoV-2 (PCR) (Negative) 06/30/21 Range/Units 21:45 WBC (4.8-10.8) K/uL RBC (4.2-5.4) M/uL Hgb (12.0-16.0) g/dL Hct (37-47) % MCV (80-100) fL MCH (25-34) pg MCHC (32-36) g/dL RDW Std Deviation (36.4-46.3) fL RDW Coeff of Court (11.5-14.5) % Plt Count (130-400) K/uL MPV (7.4-10.4) fL Immature Gran % (Auto) % Neut % (Auto) % Lymph % (Auto) % [place] % (Auto) % Eos % (Auto) % Baso % (Auto) % Neut # (Auto) (1.4-6.5) K/uL Lymph # (Auto) (1.2-3.4) K/uL [place] # (Auto) (0.11-0.59) K/uL Eos # (Auto) (0-0.5) K/uL Baso # (Auto) (0-0.2) K/uL Immature Gran # (Auto) (0.00-0.02) K/uL Sodium (136-145) mmol/L Potassium (3.5-5.1) mmol/L Chloride (98-107) mmol/L Carbon Dioxide (21-32) mmol/L Anion Gap (3-11) BUN (7-18) mg/dl Creatinine (0.6-1.2) mg/dl Est Cr Clr Drug Dosing Est GFR ( Amer) ml/min Est GFR (Non-Af Amer) ml/min BUN/Creatinine Ratio (10-20) Glucose (70-99) mg/dl POC Glucose (70-99) mg/dl Calcium (8.5-10.1) mg/dl Magnesium (1.8-2.4) mg/dl Total Bilirubin (0.2-1) mg/dl AST (15-37) U/L ALT (12-78) U/L Alkaline Phosphatase (45-117) U/L Troponin I (0-0.045) ng/ml NT-Pro-B Natriuret Pep (0-1800) pg/ml Total Protein (6.4-8.2) gm/dl Albumin (3.4-5.0) gm/dl Globulin (2.5-4.0) gm/dl Albumin/Globulin Ratio (0.9-2) TSH (0.300-4.500) uIu/ml Specimen Hemolysis Lyme Disease IgG Ab (Negative) Lyme Disease IgM Ab (Negative) COVID-19 Eval Order SARS-CoV-2 (PCR) NEGATIVE (Negative) Imaging Data Radiologist's Impression: Chest X-Ray 06/30/21 20:05 SINGLE VIEW CHEST CLINICAL HISTORY: Fall. FINDINGS: An AP, portable, upright chest radiograph is compared to study dated 08/13/2017 and correlated with chest CT dated 11/24/2012. The examination is degraded by portable technique and patient rotation. The heart is enlarged noting atherosclerotic calcification of the thoracic aorta. There is pulmonary vascular congestion with coarsening of interstitium. Small pleural effusions are noted. Scarring/atelectasis is noted at the lung bases. No pneumothorax is seen. The skeletal structures are osteopenic. The bony thorax is grossly intact. IMPRESSION: 1. Cardiomegaly with evidence of mild congestive failure. 2. Small pleural effusions. ACT 112: Negative or not required by law. Electronically signed by: Fidencio Bishop M.D. 06/30/2021 8:59 PM ECG Data Attestation: I personally reviewed and interpreted this ECG as follows: Indication: + weakness Rate (beats per minute): 39 Rhythm: + sinus bradycardia ECG Intervals/blocks: + First degree AV block, + Mobitz Type II, + Right Bundle branch block and + Normal QT ECG [place]: + Normal ECG ST segments: + Nonspecific ST abnormalities MDM Narrative This is an 85-year-old female who presents due to dizziness and possible seizure-like activity at home witnessed by family. Patient found to be significantly bradycardic with second-degree heart block noted on initial EKG. Given family's description and recurrent episode witnessed here without tongue biting, incontinence, or postictal period, I suspect this was convulsive syncope secondary to her symptomatic bradycardia. After review of the patient's meds, she was given glucagon for possible reversal of the metoprolol. Case was discussed with hospitalist as well as on-call interventional cardiology in case of need for emergent pacemaker placement. They recommended given patient had a stable blood pressure at this time reversing the beta-melissa, avoiding any additional rate controlling agents, additional drip with isoproterenol if she remains hypertensive or other agents if her blood pressure drops and trying to wait until tomorrow morning to place a pacemaker. No evidence of obvious infectious etiology. TSH, magnesium, and Lyme were added to the patient's labs as precaution. CT of the head also added. At this time I do not suspect occult seizure disorder. Patient was cautiously rehydrated due to concern for risk of congestive heart failure and elevated BNP noted on labs. Patient not hypoxic, no increased work of breathing or respiratory distress reported. Patient's heart rate was mildly improved with addition of dopamine ultimately due to a drop in her blood pressure. An order was placed for continuous cardiac monitoring. The monitor shows a rate of _42_ with _sinus bradycardia with 2nd degree heart block__ rhythm. Impression & Plan Dizziness, Symptomatic bradycardia, Heart block, Hyponatremia, Elevated brain natriuretic peptide (BNP) level Discharge Plan Visit Data Chief Complaint: Fall Stated Complaint: FALL ED Provider: Jasmin Rodriguez Discharge Problem: Dizziness, Symptomatic bradycardia, Heart block, Hyponatremia, Elevated brain natriuretic peptide (BNP) level Patient Disposition: Admitted As Inpatient Condition: Fair Discharge Instructions Interventions: ED Discharge Assessment Last Done: 06/30/21 23:02
[2021-06-30] MEDS ORDERED: STAT IV Infusion **Titration per Protocol STA ×2 (21:28→22:00)
[2021-06-30] MEDS ORDERED: SODIUM CHLORIDE 0.9% 500 ML IV SCH (21:30)
[2021-06-30] MEDS ORDERED: GLUCAGON FOR INJ 1 MG VIAL ONE (21:32)
[2021-06-30] MEDS ORDERED: DOBUTamine / D5W 500 MG/250 ML BAG IV SCH (22:00)
[2021-06-30 22:04] LABS: Magnesium 2.2 mg/dl (1.8-2.4)
[2021-06-30] MEDS ORDERED: DOPamine 400MG / 250ML D5W IV ONE (22:07)
[2021-06-30] MEDS: DOPAMINE / D5W 400 MG/250 ML BRADYCARDIA IV SCH (22:11)
[2021-06-30 22:17] LABS: NT Pro B Type Natriuretic Pept 2783 pg/ml (0-1800); Troponin I < 0.015 ng/ml (0-0.045)
--- NOTE | 2021-06-30 22:31 | History & Physical Report ---
Date of Service June 30, 2021 Assessment & Plan (1) Bradycardia: Plan: 85yo Female PMH HTN Depression Anxiety Bipolar Chronic Inflammatory Demylinating Polyneuropathy here for dizziness falls. Bradycardia -HR 37 on admit, last normal HR in november at 60 -EKG shows complete heart block -cardiology consulted to assess for pacer -started on dopamine -admit to ICU -negative lyme -npo CHF -IVF started in ED, stopped on admit -BNP 2783 -CXR = cardiomegaly with evidence mild congestive heart failure, small pleural effusions, tracheal deviation to the right -Na 125, K 5.4 -trend cbc, bmp, mg -consider lasix HTN -hold metoprolol -continue amlodipine Depression/Anxiety/Bipolar -continue sertraline, bupropion, latuda Chronic Inflammatory Demylinating Polyneuropathy -continue gabapentin [place] -ordered PT/OT -head CT ordered FENa:npo Code Status: full PT/OT: ordered (2) Heart failure: (3) Essential hypertension: (4) Depression: History of Present Illness Chief Complaint: Dizziness Falls Primary Care Provider: Janice Erickson DO 85yo Female PMH HTN Depression Anxiety Bipolar, Chronic Inflammatory Demy linating Polyneuropathy, here with complaint of dizziness, falls, and 'seizure like' symptoms. Patient here with 2 sons, they describe dizziness ongoing for 3- 4 months that occurs when changing position from laying to sitting too quickly, moving too quickly, and occasionally when not moving. Patient has experienced multiple falls over the past week and is not sure if she hit her head, sons note no blood or bruising. Patient's sons state tonight during dinner, the patient shouted and fell on the floor shaking and was 'out of it' and disoriented afterwards, patient states she has no recollection of this event. Patient states these 'seizure like' symptoms have never happened to her before. At this time patient describes a little shortness of breath, states she had some dizziness nausea earlier today that has since resolved, denies chest pain. Patient states they were treated for lyme disease years ago. She has a information systems project manager whose name she does not recall. Her medications are managed by her sons who verify that she takes them regularly. Patient is on amlodipine, bupropion, latuda, metoprolol, sertraline, and neurontin, with PRN percocet and furosemide. Patient denies history of stroke, [place], heart failure, denies taking blood thinners. Patient has 30pk year history, no alcohol. Patient denies allergies to medication. Allergies Allergy/AdvReac Type Severity Reaction Status Date / Time prednisone Allergy Severe ANAPHYLAXIS Verified 06/30/21 21:41 metronidazole Allergy Unknown RASH, FEVER Verified 06/30/21 21:41 LaMICtal TABS Allergy Mild rash Uncoded 06/30/21 21:41 Pred Forte SUSP Allergy Mild rash Uncoded 06/30/21 21:41 Flagyl TABS Allergy rash Uncoded 06/30/21 21:41 indomethacin AdvReac rash Uncoded 06/30/21 21:41 Home Medications Medication Instructions Recorded Confirmed Type Al hyd-Mg tr-alg ac-sod bicarb 80 1 tab PO DAILY PRN tab 12/19/18 06/30/21 History mg-14.2 mg chewable tablet (Gaviscon) cholecalciferol (vitamin D3) 125 5,000 units PO DAILY 12/19/18 06/30/21 History mcg (5,000 unit) capsule lurasidone 40 mg tablet (Latuda) 40 mg PO QPM 12/19/18 06/30/21 History polyethylene glycol 3350 17 gram 17 gm PO DAILY PRN 12/19/18 06/30/21 History oral powder packet (Miralax) simethicone 80 mg chewable tablet 80 mg PO DAILY PRN 12/19/18 06/30/21 History furosemide 20 mg tablet 20 mg PO DAILY PRN #90 tab 05/01/19 06/30/21 Rx zoledronic acid 5 mg/100 mL in See Rx Instructions .ROUTE 05/01/19 06/30/21 Rx mannitol 5 %-water intravenous .COMPLEX #100 ml piggybck (Reclast) cyanocobalamin (vitamin B-12) 1,000 mcg PO DAILY 10/19/19 06/30/21 History 1,000 mcg capsule bupropion HCl 100 mg tablet,12 hr 100 mg PO BID 10/31/19 06/30/21 History sustained-release (Wellbutrin SR) oxycodone-acetaminophen 5 mg-325 1 tab PO BID PRN tab 01/09/20 06/30/21 History mg tablet (Percocet) immune glob,gamma(IgG) 10 30 gm IV .COMPLEX 30 Days #3 ea 03/28/20 06/30/21 Rx eihc-ntc-lixz-IgA 0 to 50 mcg/mL IV solution (Gammagard S-D (IgA < 1 mcg/mL)) pantoprazole 40 mg tablet,delayed 40 mg PO DAILY #90 tab 11/28/20 06/30/21 Rx release sertraline 50 mg tablet 50 mg PO DAILY #30 tab 06/15/21 06/30/21 Rx amlodipine 10 mg tablet 10 mg PO QPM 06/30/21 06/30/21 History gabapentin 400 mg capsule 800 mg PO BID 06/30/21 06/30/21 History metoprolol succinate 25 mg 50 mg PO QAM 06/30/21 06/30/21 History tablet,extended release 24 hr triamcinolone acetonide 0.1 % 1 applic TOP BID PRN 06/30/21 06/30/21 History topical ointment Past Med/Surg History Medical History (Updated 07/01/21 @ 13:02 by Gabriel Arriaza MD) Anxiety disorder Bipolar disorder Chronic asthmatic bronchitis Chronic constipation Chronic inflammatory demyelinating polyneuropathy Depression Diastolic dysfunction Diverticulosis Essential hypertension Gastroesophageal reflux disease without esophagitis Gout Insomnia Kyphoscoliosis Legally blind Lumbosacral radiculopathy at S1 MGUS (monoclonal gammopathy of unknown significance) Multiple pulmonary nodules Multiple thyroid nodules Occipital neuralgia Opiate dependence Osteoporosis PAC (premature atrial contraction) Prediabetes Premature ventricular contractions Right bundle branch block (RBBB) Sacroiliitis Spinal stenosis of cervical region Spinal stenosis of lumbar region with radiculopathy Spondylolisthesis of lumbar region Thoracic facet syndrome Tubular adenoma of colon Urinary incontinence Venous stasis dermatitis Vitamin D deficiency Surgical History H/O total knee replacement (2002) Right History of total hip arthroplasty (2008) Left Hx of cholecystectomy S/P arthroscopy of right shoulder w/ rotator cuff repair S/P cataract surgery S/P decompression of ulnar nerve at elbow (2001) b/l S/P eye surgery R eye discission of vitreous by pars plana approach Family History Mother Colon cancer Hypertension Father Acquired amyotrophic lateral sclerosis Hypertension Brother Acute pneumonitis Hypertension Sister Acute pneumonitis Hypertension Denies family history of Ovarian cancer Prostate cancer Coronary heart disease Heart disease Breast cancer Lung cancer Social History Smoking Status: Current every day smoker Tobacco Type: Cigarettes Age Started Using Tobacco: 20; Cigarettes Per Day: 3; Second Hand Exposure: Yes (son smokes outdoors with pt); Do You Dip or Chew Tobacco: No; Tobacco Cessation Education Requested by Patient: No Hx Alcohol Use: No Hx Substance Use: No Preferred Language: Korean Communication Ability: Effective Visual Impairment: Limited Hearing Ability: Normal Test Engine Evaluator Required: No Beliefs That Will Affect Care: Church marital status: Single Current Living Situation: Family Current Living Situation Comment: Lives with sons. current occupational status: retired How many Children do You have: 5 How many Children do You have Comment: lost one child- 4 living Other Information That Helps Us Care for You: No Feels Safe at Home: Yes Safety Concerns: Feels Safe At This Time Childhood Exposure to Second-Hand Smoke: Yes caffeine: Yes during the past year weight has: increased > 10 lbs Dental Care, Regularly: Yes Physical Activity Frequency: 5-6 Times per Week Physical Activity Frequency Comment: walk Seatbelt Use: always Sunscreen Use: No Assistive Devices: Glasses and Oxygen - Continuous Review of Systems Review of Systems: Positive mild SOB Negative fever chills Negative headache dizziness Negative chest pain palpitations Negative nausea vomitting diarrhea constipation Negative numbness tingling rash swelling Physical Exam Physical Exam: General: Well appearing, age appropriate Heart: bradycardic, +S1 S2, no murmurs/gallops/rubs Lungs: cta b/l, no wheezes/rales/rhonchi Abd: soft, NT/ND, +BS Extremities: +1 pitting edema of LLE, no rashes, no clubbing/cyanosis Psych:euthymic, calm, cooperative Skin: warm, dry, intact Results & Data Results & Data ([facility]) Vital Signs (Past 12 Hours) Vital Signs Temp Pulse Pulse Resp BP BP Pulse Ox 06/30/21 21:41 38 L 20 164/62 H 93 06/30/21 19:46 36.4 C L 42 L 20 141/90 H 91 Laboratory Results Laboratory Results WBC 13.46 K/uL (4.8-10.8) H 06/30/21 20:30 RBC 3.87 M/uL (4.2-5.4) L 06/30/21 20: Hgb 12.1 g/dL (12.0-16.0) 06/30/21 20: Hct 34.8 % (37-47) L 06/30/21 20: MCV 89.9 fL (80-100) 06/30/21 20: MCH 31.3 pg (25-34) 06/30/21 20: MCHC 34.8 g/dL (32-36) 06/30/21 20: RDW Std Deviation 44.2 fL (36.4-46.3) 06/30/21: RDW Coeff of Court 13.6 % (11.5-14.5) 06/30/21: Plt Count 336 K/uL (130-400) 06/30/21 20: MPV 9.2 fL (7.4-10.4) 06/30/21 20: Immature Gran % (Auto) 0.2 % 06/30/21 20: Neut % (Auto) 71.7 % 06/30/21 20: Lymph % (Auto) 14.9 % 06/30/21 20: [place] % (Auto) 12.0 % 06/30/21 20: Eos % (Auto) 1.0 % 06/30/21: Baso % (Auto) 0.2 % 06/30/21: Neut # (Auto) 9.64 K/uL (1.4-6.5) H 06/30/21 20: Lymph # (Auto) 2.01 K/uL (1.2-3.4) 06/30/21 20: [place] # (Auto) 1.61 K/uL (0.11-0.59) H 06/30/21 20: Eos # (Auto) 0.14 K/uL (0-0.5) 06/30/21 20: Baso # (Auto) 0.03 K/uL (0-0.2) 06/30/21 20: Immature Gran # (Auto) 0.03 K/uL (0.00-0.02) H 06/30/21 20: Sodium 125 mmol/L (136-145) L 06/30/21 20:30 Potassium 5.4 mmol/L (3.5-5.1) H 06/30/21 20:30 Chloride 95 mmol/L (98-107) L 06/30/21 20:30 Carbon Dioxide 21 mmol/L (21-32) 06/30/21 20: Anion Gap 9.0 (3-11) 06/30/21 20:30 BUN 16 mg/dl (7-18) 06/30/21 20: Creatinine 0.93 mg/dl (0.6-1.2) 06/30/21 20:30 Est Cr Clr Drug Dosing Not Reportable 06/30/21 20:30 Est GFR ( Amer) 65.9 ml/min 06/30/21: Est GFR (Non-Af Amer) 56.8 ml/min 06/30/21 20:30 BUN/Creatinine Ratio 16.7 (10-20) 06/30/21 20:30 Glucose 138 mg/dl (70-99) H 06/30/21 20:30 POC Glucose 155 mg/dl (70-99) H 06/30/21 21:29 Calcium 9.3 mg/dl (8.5-10.1) 06/30/21: Magnesium 2.2 mg/dl (1.8-2.4) 06/30/21 20:30 Total Bilirubin 0.3 mg/dl (0.2-1) 06/30/21 20:30 AST 28 U/L (15-37) 06/30/21 20:30 ALT 28 U/L (12-78) 06/30/21 20:30 Alkaline Phosphatase 58 U/L (45-117) 06/30/21 20:30 Troponin I < 0.015 ng/ml (0-0.045) 06/30/21 20:30 NT-Pro-B Natriuret Pep 2783 pg/ml (0-1800) H 06/30/21 20:30 Total Protein 7.1 gm/dl (6.4-8.2) 06/30/21 20:30 Albumin 2.9 gm/dl (3.4-5.0) L 06/30/21 20:30 Globulin 4.2 gm/dl (2.5-4.0) H 06/30/21 20:30 Albumin/Globulin Ratio 0.7 (0.9-2) L 06/30/21 20:30 TSH 1.350 uIu/ml (0.300-4.500) 06/30/21 20:30 Specimen Hemolysis 06/30/21 20:30 Specimen Hemolysis 06/30/21 20:30 COVID-19 Eval Order Covid19 at [facility] 06/30/21 21:45 SARS-CoV-2 (PCR) NEGATIVE (Negative) 06/30/21 21:45 Impressions Chest X-Ray 06/30/21 20:05 SINGLE VIEW CHEST CLINICAL HISTORY: Fall. FINDINGS: An AP, portable, upright chest radiograph is compared to study dated 08/13/2017 and correlated with chest CT dated 11/24/2012. The examination is degraded by portable technique and patient rotation. The heart is enlarged noting atherosclerotic calcification of the thoracic aorta. There is pulmonary vascular congestion with coarsening of interstitium. Small pleural effusions are noted. Scarring/atelectasis is noted at the lung bases. No pneumothorax is seen. The skeletal structures are osteopenic. The bony thorax is grossly intact. IMPRESSION: 1. Cardiomegaly with evidence of mild congestive failure. 2. Small pleural effusions. ACT 112: Negative or not required by law. Electronically signed by: Fidencio Bishop M.D. 06/30/2021 8:59 PM Medications Administered Current Inpatient Medications Sodium Chloride (Nss) 500 mls @ 80 mls/hr IV .[id number] [facility] Stop: 07/30/21 21:29 Last Admin: 06/30/21 21:41 Dose: 80 mls/hr Documented by: Dopamine HCl/Dextrose (Dopamine / D5w) 400 mg in 250 mls @ 18.326 mls/hr IV .[id number] [facility]; Protocol Stop: 07/30/21 22:14 Last Titration: 06/30/21 22:43 Dose: 6.5 mcg/kg/min, 26.5 mls/hr Documented by: Code Status & VTE Plan Code Status Full VTE Prophylaxis Plan VTE Prophylaxis will be ordered: Yes Critical Care Time 45 minutes Supervising Physician Co-Signing Physician Notes Attending addendum: I have physically seen this patient, have supervised the medical residents activities, and agree with the H&P unless as otherwise noted. Assessment and Plan: Third-degree heart block/severe bradycardia/CHF/hypertension Heart rate in the upper 30s upon admission Continue dopamine infusion begun in the ED Hold metoprolol Continue amlodipine As blood pressure improves on dopamine, will add Lasix Serial CBC with differential, chemistry profile and magnesium levels Admission to the ICU Consult cardiology and vessel liner Remaining orders and notations as noted Resident Activity Tracking Resident Involvement: Resident Care Provided Care Provided: Adult Hospital Medicine
--- NOTE | 2021-06-30 22:52 | Critical Care Consultation ---
Date of Consultation June 30, 2021 Assessment & Plan (1) Bradycardia: Reason Critically Ill: 85-year-old female presents to the ICU in complete heart block with intermittent syncope requiring dopamine drip. Neuro - [facility] ICU: Negative Depressioncontinue bupropion, leukocyte own, sertraline Cardiac - Complete heart blockpatient with heart rate initially in the 30s with episodes of syncope -Unresponsive to glucagon -Started on dopamine drip with improvement in heart rate -Lyme negative -Troponin negative -Hold MTP and other antihypertensives for now -Pacer pads on patient if needed emergently, atropine at bedside -Cardiology consulted, patient will likely need pacemaker -Continuous monitoring on telemetry in ICU, if patient were to decompensate will need emergent temporary pacer placement Respiratory - Currently maintaining oxygen saturations on 4 L nasal cannula, no history of pulmonary disease -Lungs clear to auscultation -Chest x-ray shows cardiomegaly with evidence of mild congestive failure, consider diuresis -Continuous monitoring pulse ox GI - N.p.o. at midnight RENAL/LYTES - Creatinine within normal limits Hyperkalemiapotassium mildly elevated at 5.4, will monitor for now - Strict I's and O's ENDO - No history of diabetes or thyroid disease, TSH pending ICU hyperglycemic protocol HEME - H&H stable, routine CBC ID - No indication for infectious process at this time LINES/IV ACCESS - Peripheral IVs DVT PROPHYLAXIS - SCDs, hold anticoagulation for now as patient may require pacemaker insertion I have personally spent 40 minutes of critical care time in the direct management of this patient. This is a life/limb threatening event. This includes time spent evaluating patient, direct bedside care, chart review, placing orders, interpretation of diagnostic studies, discussion with consultants, patient, and family members, as well as other required patient management activities. This time is exclusive of all separately billable procedures, and teaching time and separate from and in addition to any other critical care service time. Thank you for allowing us to participate in the care of this patient. Please refer to my attending physician's documentation for any further recommendations. (2) Complete heart block: (3) Dizziness: (4) Syncope: (5) Lumbosacral radiculopathy at S1: (6) Vitamin D deficiency: (7) Spondylolisthesis of lumbar region: (8) Premature ventricular contractions: (9) Prediabetes: (10) Osteoporosis: (11) Gastroesophageal reflux disease without esophagitis: (12) Essential hypertension: (13) Chronic inflammatory demyelinating polyneuropathy: History of Present Illness History of Present Illness Ms. Patel is a 85-year-old female with past medical history including HTN, anxiety and depression, osteoporosis, chronic inflammatory demyelinating polyneuropathy, GERD who presents to the emergency department with complaint of 5 seconds of seizure-like symptoms at dinner, no history of seizure activity. Patient's son states that she became unconscious with convulsion for approximately 5 seconds. Patient also reports falling due to dizziness on Tuesday without sustaining trauma. In the emergency department patient was found to be in complete heart block with heart rate in the 30s and had a witnessed syncopal episode. She is hemodynamically stable. Patient is on metoprolol and she did receive glucagon without effect to heart rate. She was started on dopamine drip and heart rate has improved to 40s. Cardiology was consulted and did not feel patient needs emergent temporary pacer at this time. Will admit to ICU dopamine drip. Pacer pads attached to patient. She is currently hemodynamically dynamically stable and alert and oriented without discomfort on exam. She is maintaining oxygen saturations on nasal cannula. She currently denies headache, recent illness or fevers, sore throat, cough, chest pain or palpitations, abdominal pain, diarrhea, or swelling in hands and feet. She does report mild shortness of breath. She reports dizziness with transitioning or exertion. Allergies Allergy/AdvReac Type Severity Reaction Status Date / Time prednisone Allergy Severe ANAPHYLAXIS Verified 06/30/21 21:41 metronidazole Allergy Unknown RASH, FEVER Verified 06/30/21 21:41 LaMICtal TABS Allergy Mild rash Uncoded 06/30/21 21:41 Pred Forte SUSP Allergy Mild rash Uncoded 06/30/21 21:41 Flagyl TABS Allergy rash Uncoded 06/30/21 21:41 indomethacin AdvReac rash Uncoded 06/30/21 21:41 Home Medications Medication Instructions Recorded Confirmed Type Al hyd-Mg tr-alg ac-sod bicarb 80 1 tab PO DAILY PRN tab 12/19/18 06/30/21 History mg-14.2 mg chewable tablet (Gaviscon) cholecalciferol (vitamin D3) 125 5,000 units PO DAILY 12/19/18 06/30/21 History mcg (5,000 unit) capsule lurasidone 40 mg tablet (Latuda) 40 mg PO QPM 12/19/18 06/30/21 History polyethylene glycol 3350 17 gram 17 gm PO DAILY PRN 12/19/18 06/30/21 History oral powder packet (Miralax) simethicone 80 mg chewable tablet 80 mg PO DAILY PRN 12/19/18 06/30/21 History furosemide 20 mg tablet 20 mg PO DAILY PRN #90 tab 05/01/19 06/30/21 Rx zoledronic acid 5 mg/100 mL in See Rx Instructions .ROUTE 05/01/19 06/30/21 Rx mannitol 5 %-water intravenous .COMPLEX #100 ml piggybck (Reclast) cyanocobalamin (vitamin B-12) 1,000 mcg PO DAILY 10/19/19 06/30/21 History 1,000 mcg capsule bupropion HCl 100 mg tablet,12 hr 100 mg PO BID 10/31/19 06/30/21 History sustained-release (Wellbutrin SR) oxycodone-acetaminophen 5 mg-325 1 tab PO BID PRN tab 01/09/20 06/30/21 History mg tablet (Percocet) immune glob,gamma(IgG) 10 30 gm IV .COMPLEX 30 Days #3 ea 03/28/20 06/30/21 Rx elcc-ubj-pucm-IgA 0 to 50 mcg/mL IV solution (Gammagard S-D (IgA < 1 mcg/mL)) pantoprazole 40 mg tablet,delayed 40 mg PO DAILY #90 tab 11/28/20 06/30/21 Rx release sertraline 50 mg tablet 50 mg PO DAILY #30 tab 06/15/21 06/30/21 Rx amlodipine 10 mg tablet 10 mg PO QPM 06/30/21 06/30/21 History gabapentin 400 mg capsule 800 mg PO BID 06/30/21 06/30/21 History metoprolol succinate 25 mg 50 mg PO QAM 06/30/21 06/30/21 History tablet,extended release 24 hr triamcinolone acetonide 0.1 % 1 applic TOP BID PRN 06/30/21 06/30/21 History topical ointment Patient History Medical History (Updated 06/30/21 @ 23:36 by CHELA Anne) Anxiety disorder Bipolar disorder Chronic asthmatic bronchitis Chronic constipation Chronic inflammatory demyelinating polyneuropathy Depression Diastolic dysfunction Diverticulosis Essential hypertension Gastroesophageal reflux disease without esophagitis Gout Insomnia Kyphoscoliosis Legally blind Lumbosacral radiculopathy at S1 MGUS (monoclonal gammopathy of unknown significance) Multiple pulmonary nodules Multiple thyroid nodules Occipital neuralgia Opiate dependence Osteoporosis PAC (premature atrial contraction) Prediabetes Premature ventricular contractions Right bundle branch block (RBBB) Sacroiliitis Spinal stenosis of cervical region Spinal stenosis of lumbar region with radiculopathy Spondylolisthesis of lumbar region Thoracic facet syndrome Tubular adenoma of colon Urinary incontinence Venous stasis dermatitis Vitamin D deficiency Surgical History H/O total knee replacement (2002) Right History of total hip arthroplasty (2008) Left Hx of cholecystectomy S/P arthroscopy of right shoulder w/ rotator cuff repair S/P cataract surgery S/P decompression of ulnar nerve at elbow (2001) b/l S/P eye surgery R eye discission of vitreous by pars plana approach Family History Mother Colon cancer Hypertension Father Acquired amyotrophic lateral sclerosis Hypertension Brother Acute pneumonitis Hypertension Sister Acute pneumonitis Hypertension Denies family history of Ovarian cancer Prostate cancer Coronary heart disease Heart disease Breast cancer Lung cancer Social History Smoking Status: Current every day smoker Tobacco Type: Cigarettes Age Started Using Tobacco: 20; Cigarettes Per Day: 3 cigarettes a day; Second Hand Exposure: Yes (son smokes outdoors with pt); Hx Alcohol Use: No Hx Substance Use: No Preferred Language: Kyrgyz Communication Ability: Effective Visual Impairment: Limited Hearing Ability: Normal Plug Making Operator Required: No Beliefs That Will Affect Care: None marital status: Single Current Living Situation: Alone Current Living Situation Comment: son visits daily current occupational status: retired How many Children do You have: 5 How many Children do You have Comment: lost one child- 4 living Feels Safe at Home: Yes Childhood Exposure to Second-Hand Smoke: Yes caffeine: Yes during the past year weight has: increased > 10 lbs Dental Care, Regularly: Yes Physical Activity Frequency: 5-6 Times per Week Physical Activity Frequency Comment: walk Seatbelt Use: always Sunscreen Use: No Review of Systems Constitutional: as per Subjective / HPI Physical Exam Constitutional: WD/WN, vitals as above Eyes: PERRL, conjunctivae normal, anicteric sclerae Neck: trachea midline, no thyromegaly Respiratory: normal respiratory effort, lungs clear to auscultation Cardiovascular: Rate/Rhythm: + bradycardic and + irregularly irregular Heart Sounds: normal S1 and normal S2 Vessels: no JVD Extremities: + edema (Bilateral pedal edema +1) Gastrointestinal (Abdomen): normal bowel sounds, soft, nontender, no hepatosplenomegaly Musculoskeletal: no cyanosis or clubbing, extremities motor strength 5/5 Skin: no rashes, warm and dry Neurologic: PERRL, EOMI, accommodation nl, no face palsy, no dysarthria Psychiatric: A+Ox3, euthymic affect Results & Data Results & Data ([facility]) Vital Signs (Past 12 Hours) Vital Signs Temp Pulse Pulse Resp BP BP Pulse Ox 06/30/21 21:41 38 L 20 164/62 H 93 06/30/21 19:46 36.4 C L 42 L 20 141/90 H 91 Coding Level of Care Code Critical Care 1st 30-74 mins Diagnoses Bradycardia R00.1 Complete heart block I44.2 Dizziness R42 Syncope R55 Lumbosacral radiculopathy at S1 M54.17 Vitamin D deficiency E55.9 Spondylolisthesis of lumbar region M43.16 Premature ventricular contractions I49.3 Prediabetes R73.03 Osteoporosis M81.0 Gastroesophageal reflux disease without esophagitis K21.9 Essential hypertension I10 Chronic inflammatory demyelinating polyneuropathy G61.81
[2021-06-30 23:08] LABS: Lyme Ab IgG w/WB Rflx Negative (Negative); Lyme Ab IgM w/WB Rflx Negative (Negative)
[2021-06-30] MEDS ORDERED: ICU PROTOCOL FOR HYPERGLYCEMIA PRN (23:40)
[2021-06-30] MEDS ORDERED: FUROSEMIDE INJ 20 MG/2 ML VIAL IV ONE (23:45)
[2021-07-01] MEDS ORDERED: INFLUENZA VACCINE HIGH DOSE PF 65+ 0.7 ML SYR IM ONE (00:07)
[2021-07-01] MEDS ORDERED: ATROPINE SULFATE 0.1 MG/ML 10ML SYR IV ONE (01:32)
[2021-07-01 05:06] LABS: Basophils # (auto) 0.01 K/uL (0-0.2); Basophils % (auto) 0.1 %; Eosinophils # (auto) 0.03 K/uL (0-0.5); Eosinophils % (auto) 0.2 %; Hematocrit (blood only) 36.5 % (37-47); Hemoglobin 12.7 g/dL (12.0-16.0); Immature Granulocytes # (auto) 0.02 K/uL (0.00-0.02); Immature Granulocytes % (auto) 0.1 %; Lymphocytes # (auto) 1.34 K/uL (1.2-3.4); Lymphocytes % (auto) 9.6 %; Mean Corpuscular Hemoglobin 31.1 pg (25-34); Mean Corpuscular Hgb Conc 34.8 g/dL (32-36); Mean Corpuscular Volume 89.2 fL (80-100); Mean Platelet Volume 9.2 fL (7.4-10.4); Monocytes # (auto) 2.19 K/uL (0.11-0.59); Monocytes % (auto) 15.7 %; Neutrophils % (auto) 74.3 %; Platelet Count 320 K/uL (130-400); RDW Coefficient of Variation 13.3 % (11.5-14.5); RDW Standard Deviation 43.7 fL (36.4-46.3); Red Blood Count 4.09 M/uL (4.2-5.4); White Blood Count 13.99 K/uL (4.8-10.8)
[2021-07-01 05:27] LABS: BUN Creatinine Ratio 15.6 (10-20); Calcium 8.8 mg/dl (8.5-10.1); Creatinine Clr Calc Pharmacy 47.1 ml/min; Est GFR (African American) 54.4 ml/min; Est GFR (Non-African American) 46.9 ml/min; Magnesium 2.2 mg/dl (1.8-2.4); Potassium 4.9 mmol/L (3.5-5.1)
[2021-07-01] MEDS ORDERED: ALBUT/IPRATROP 3MG/0.5MG NEB 3 ML VIAL NEB STA (05:35)
[2021-07-01] MEDS ORDERED: ALBUT/IPRATROP 3MG/0.5MG NEB 3 ML VIAL ONE (05:42)
[2021-07-01 05:53] LABS: Appearance Urine Clear (Clear); Bacteria Urine Automated 1+ (Negative); Bilirubin Urine Negative (Negative); Blood Urine Negative (Negative); Color Urine Dark Yellow; Epithelial Cell Urine Auto >30 /lpf (0-5); Glucose Urine UA Negative (Negative); Ketones Urine Negative (Negative); Leukocyte Esterase Urine Trace (Negative); Nitrite Urine Negative (Negative); Protein Urine Negative (Negative); RBC Urine Automated 0-4 /hpf (0-4); Specific Gravity Urine 1.014 (1.000-1.030); Urobilinogen Urine Negative (Negative); pH Urine 5.5 (4.5-7.5)
[2021-07-01 05:54] LABS: Troponin I 0.015 ng/ml (0-0.045)
[2021-07-01] MEDS ORDERED: FUROSEMIDE 40 MG/4 ML VIAL IV ONE ×2 (05:56→15:12)
[2021-07-01 06:41] LABS: Cast Urine Automated 0 /lpf (0-5)
--- NOTE | 2021-07-01 07:21 | Critical Care Progress Note ---
Date of Service July 01, 2021 Assessment & Plan (1) Heart block: Plan: Reason Critically Ill: Shira Patel is an 85yo female who was admitted to [facility], to the ICU, for syncope 2/2 second degree AV block that is requiring Dopamine gtt. Neuro - [facility] ICU: Negative Depression - continue bupropion, Latuda, sertraline (QTc 410) Cardiac - 1. Second degree 2:1 AV block, likely cause of recurrent syncope. Patient asymptomatic on Dopamine gtt - Unresponsive to glucagon 2mg IV x1 (of note, Atropine was not attempted) - continue Dopamine gtt - Hold home Metoprolol and other antihypertensives for now - Would trial Atropine if becomes persistently bradycardic/symptomatic despite Dopamine - Pacer pads on patient if needed emergently - Cardiology consulted - recommend pacemaker placement; will try to schedule patient this afternoon - Continuous monitoring on telemetry in ICU, if patient were to decompensate will need emergent temporary pacer placement 2. Possible CHF: weight gain, occasional dyspnea, pulm edema on CXR, BNP elevated, TTE pending. - s/p Lasix 60mg IV overnight, but O2 requirements have increased from 4L NC to 7L Oxymask (no supplemental O2 at home) - continue with Lasix 40mg IV daily, starting this afternoon - further management pending TTE results Respiratory - Hypoxia: likely 2/2 hypervolemia/pulmonary edema. However, undiagnosed COPD may also be contributing given smoking history - possible CHF management as stated above - continuous monitoring pulse ox, wean supplemental O2 as tolerated - recommend PFT as outpatient GI - NPO pending decision regarding PPM placement RENAL/LYTES - 1. Hyponatremia: suspect hypotonic hypervolemic hyponatremia 2/2 likely CHF. In regards to hyponatremia patient is currently asymptomatic - alert/awake without AMS. - plan for CHF as stated above - continue to monitor - Strict I's and O's ENDO - No history of diabetes or thyroid disease. ICU hyperglycemic protocol HEME - H&H stable, routine CBC ID - Leukocytosis 14 (without left shift), although no fever or focal infectious symptoms at this time. - follow fever curve LINES/IV ACCESS - Peripheral IVs intact. DVT PROPHYLAXIS - SCDs, hold anticoagulation for now as patient may require pacemaker insertion Thank you for allowing us to be part of this patient's care. Please refer to Dr. Kennedy's documentation for any further recommendations. (2) Symptomatic bradycardia: (3) Syncope: (4) Hyponatremia: (5) Elevated brain natriuretic peptide (BNP) level: (6) Bipolar disorder: (7) Anxiety disorder: (8) Depression: (9) Chronic inflammatory demyelinating polyneuropathy: (10) Gastroesophageal reflux disease without esophagitis: (11) Gout: (12) Insomnia: (13) Osteoporosis: Admission and Anticipated Discharge Date Admission Date: June 30, 2021 Supervising Physician Co-Signing Physician Notes Patient seen and examined. EMR reviewed. Discussed with overnight critical care BURAK and with family practice resident. Agree with assessment plan as noted. Discussed on multidisciplinary rounds and with the bedside critical care nurse. Patient admitted with symptomatic bradycardia with high degree AV block. She was initiated on dopamine. She is pending cardiac evaluation later today. Echocardiogram was performed. Her oxygen requirement is increased overnight. Chest x-ray does demonstrate some diffuse interstitial opacities, potentially consistent with fluid overload. BNP was elevated. Continue diuretics and wean oxygen as tolerated. Unclear if her bradycardia was related to her AV evelia blocking agents which have been held. She did receive a low dose of glucagon but unlikely enough to significantly reverse beta-melissa issues. She will require PT OT evaluations once her hemodynamics are stable. Continue to follow in ICU pending improvement in her hemodynamics 40 minutes evaluating and managing this patient Subjective Patient received total of Lasix 60mg IV overnight, most recently at ~0500 today. O2 requirement has increased to 7L oxymask and patient is unable to tolerate any decrease/pause in Dopamine gtt for even a very short time without HR decreasing to low 30s and becoming presyncopal. This morning patient confirms history of repeat syncope and denies recent history of orthopnea or PND. However she does say she was told she had "heart disease" in the past although unsure of what type; she has Lasix at home but infrequently uses it for LE edema. She had a TTE before but it was "a long time ago". She does have occasional WRIGHT and was prescribed inhalers by her PCP but does not take them. She has at least 30 pack year smoking history and currently smokes 4 cigarettes per day; does not think she had spirometry/PFT before and was never told she has lung disease. Has left shoulder pain after the fall associated with syncope/heart block. Review of Systems Review of Systems: Denies fever/chills, chest pain, palpitations, SOB on current O2 settings, N/V, diarrhea, abdominal pain, rash. Physical Exam Physical Exam: General: A&Ox3. NAD. Cooperative. HEENT: Atraumatic, normocephalic. Pulm: Diminshed lung sounds bilaterally but -wheezes, -rales, -rhonchi. Symmetrical chest rise. No increase work of breathing. No respiratory distress. Cardiac: RRR, -mrg. Radial pulses intact and symmetrical. Negative hepatojugular reflex and no LE edema. Abdominal: soft, non-tender, non-distended, BS x 4 Skin: warm, dry, no rash Results & Data Results & Data ([facility]) Vital Signs (Past 12 Hours) Vital Signs Temp Pulse Pulse Resp BP BP Pulse Ox 07/01/21 06:30 49 L 17 90 07/01/21 06:00 40 L 18 131/51 L 91 07/01/21 05:46 44 L 18 92 07/01/21 05:30 50 L 33 H 89 L 07/01/21 05:00 47 L 23 146/83 H 89 L 07/01/21 04:30 44 L 21 92 07/01/21 04:00 37 C 42 L 21 144/55 H 91 07/01/21 03:30 45 L 20 91 07/01/21 03:00 43 L 18 144/48 H 91 07/01/21 02:30 45 L 20 91 07/01/21 02:00 42 L 18 136/49 L 91 07/01/21 01:30 49 L 17 91 07/01/21 01:00 47 L 21 136/64 91 07/01/21 00:30 45 L 17 93 07/01/21 00:00 42 L 20 127/47 L 91 06/30/21 23:41 36.6 C 45 L 18 117/83 91 06/30/21 23:30 48 L 20 92 06/30/21 23:01 45 L 22 148/45 H 94 06/30/21 22:30 45 L 19 94 06/30/21 22:00 35 L 20 95 06/30/21 21:41 38 L 20 164/62 H 93 06/30/21 21:30 37 L 17 132/45 L 93 06/30/21 21:10 40 L 17 90 06/30/21 19:46 36.4 C L 42 L 20 141/90 H 91 Resident Activity Tracking Resident Involvement: Resident Care Provided Care Provided: Adult Hospital Medicine
--- NOTE | 2021-07-01 07:31 | Hospitalist Progress Note ---
Date of Service July 01, 2021 Assessment & Plan (1) Symptomatic bradycardia: Plan: Shira is an 85-year-old female who presented with lightheadedness/syncope/presyncope and who was admitted for symptomatic bradycardia. Symptomatic bradycardia with syncope Bradycardic 3050s on telemetry while on dopamine EKG: Second-degree Mobitz 2 heart block Pacer pads in place Pending pacer placement with cardiology, anticipate tomorrow Primary management and ICU at this time (2) Heart block: Plan: Second-degree Mobitz 2 heart block Patient pending pacer placement with cardiology as noted above (3) Hyponatremia: Plan: Hypovolemic hyponatremia likely 2/2 CHF Treatment as otherwise noted (4) Anxiety disorder: Plan: Continue home medications as noted below (5) Bipolar disorder: Plan: Continue bupropion 100 mg p.o. twice daily Continue lurasidone 40 mg p.o. every afternoon Continue sertraline 50 mg p.o. daily (6) CHF (congestive heart failure): Plan: -Diastolic, echo with normal LV SF, no regional wall motion abnormalities, EF 65-70% Lasix given by ICU Continue Lasix No wheezing on exam Albuterol nebulizers every 4 hours as needed SPO2 as needed (7) HTN (hypertension): Plan: Continue amlodipine 10 mg every afternoon Avoid negative chronotropic 2/2 bradycardia as above Adequate blood pressure control today Admission and Anticipated Discharge Date Admission Date: June 30, 2021 Danie Silva is seen at the bedside this morning. She reports she continues to feel somewhat weak and lightheaded, but overall "okay "sitting in bed. She is anxious to have her procedure completed for her low heart rate. She reports she is "stressed "over having to had a Tapia catheter placed, reviewed that she had been retaining and had over 1000 cc of urine output after placement and urinary retention can lead to kidney injury.See below Patient expresses an understanding of this. Denies pain at the catheter site. Denies abdominal pain. Is eating lunch comfortably without nausea/vomiting. Anticipating pacer placement tomorrow. Denies chest pain/chest pressure/palpitations/shortness of breath at time of assessment. Review of Systems Review of Systems: All systems reviewed & are unremarkable except as noted in Subjective Physical Exam Physical Exam: General: A&Ox3. NAD. Cooperative. HEENT: Atraumatic, normocephalic. Pupils equal and reactive to light. Visual acuity and hearing grossly intact. Extraocular movements grossly intact. Pulm: Diminished, bibasilar crackles without overt rales, -rhonchi. Symmetrical chest rise. No increase work of breathing. No respiratory distress. Cardiac: Bradycardic, -mrg. Radial pulses intact and symmetrical. Abdominal: Nontender, nondistended, soft. BS present. : Tapia in place draining clear yellow urine Results & Data Results & Data ([facility]) Vital Signs (Past 12 Hours) Vital Signs Temp Pulse Pulse Resp BP BP Pulse Ox 07/01/21 06:30 49 L 17 90 07/01/21 06:00 40 L 18 131/51 L 91 07/01/21 05:46 44 L 18 92 07/01/21 05:30 50 L 33 H 89 L 07/01/21 05:00 47 L 23 146/83 H 89 L 07/01/21 04:30 44 L 21 92 07/01/21 04:00 37 C 42 L 21 144/55 H 91 07/01/21 03:30 45 L 20 91 07/01/21 03:00 43 L 18 144/48 H 91 07/01/21 02:30 45 L 20 91 07/01/21 02:00 42 L 18 136/49 L 91 07/01/21 01:30 49 L 17 91 07/01/21 01:00 47 L 21 136/64 91 07/01/21 00:30 45 L 17 93 07/01/21 00:00 42 L 20 127/47 L 91 06/30/21 23:41 36.6 C 45 L 18 117/83 91 06/30/21 23:30 48 L 20 92 06/30/21 23:01 45 L 22 148/45 H 94 06/30/21 22:30 45 L 19 94 06/30/21 22:00 35 L 20 95 06/30/21 21:41 38 L 20 164/62 H 93 06/30/21 21:30 37 L 17 132/45 L 93 06/30/21 21:10 40 L 17 90 06/30/21 19:46 36.4 C L 42 L 20 141/90 H 91 PG Care Time/CCT Total # of Minutes Spent Total Time Spent with Patient: Total time spent is greater than 50% in coordination of care (as documented) at patient's floor/unit and/or counseling patient: Coding Level of Care Code 51919 Subseq Hosp Care Lvl 2 Diagnoses Symptomatic bradycardia R00.1 Heart block I45.9 Hyponatremia E87.1 Anxiety disorder F41.9 Bipolar disorder F31.9 CHF (congestive heart failure) I50.9 HTN (hypertension) I10
[2021-07-01] MEDS: DOPAMINE / D5W 400 MG/250 ML BRADYCARDIA IV SCH ×2 (08:16→17:10)
--- NOTE | 2021-07-01 08:25 | CT Scan Report ---
CT head/brain wo con CLINICAL HISTORY: seizure vs syncope COMPARISON STUDY: MR brain from 12/26/2017 CT DOSE: 1021.22 mGy.cm TECHNIQUE: Standard CT of the Brain was performed without IV contrast. A dose lowering technique was utilized adhering to the principles of ALARA. FINDINGS: Extraaxial space: There is no evidence for subdural hematoma. There are no extra-axial fluid collecti ons. Ventricles and cisterns: The ventricles are mildly dilated bilaterally. There is no evidence for mid line shift or mass effect. Parenchyma: There is no subarachnoid or intraparenchymal hemorrhage. There is no evidence for an acu te infarct or cerebral edema. There is mild cerebral cortical atrophy and decreased attenuation in th e periventricular white matter representing remote small vessel disease. There are no gross mass lesi ons. Osseous structures: There is no evidence for an acute fracture. The visualized paranasal sinuses are clear. The mastoid air cells are clear bilaterally. Soft tissues: There is no evidence for focal soft tissue swelling. IMPRESSION: No acute intracerebral pathology. Triple cortical atrophy and remote small vessel disease are again seen. ACT 112: Negative or not required by law. Electronically signed by: Joo Roche M.D. 07/01/2021 8:24 AM
--- NOTE | 2021-07-01 08:56 | XRay Report ---
XR chest 1V portable CLINICAL HISTORY: resp ditress. COMPARISON STUDY: No previous studies for comparison. TECHNIQUE: 1 view of the chest FINDINGS: Single frontal view of the chest demonstrates the heart size to again be enlarged with mild central v ascular congestion. No peripheral interstitial edema is seen. The lungs are clear of alveolar opaciti es. There is again evidence of small left pleural effusion and left basilar atelectasis. There is no evidence for right pleural effusion. There is no evidence for vascular congestion. There is no acute osseous pathology. IMPRESSION: Compared to previous examination, there is again evidence for mild central vascular conge stion, small left pleural effusion and left basilar atelectasis. ACT 112: Negative or not required by law. Electronically signed by: Joo Roche M.D. 07/01/2021 8:54 AM
--- NOTE | 2021-07-01 10:28 | XRay Report ---
XR shoulder LT min 2V routine CLINICAL HISTORY: pain s/p fall. COMPARISON STUDY: No previous studies for comparison. TECHNIQUE: 3 left shoulder views FINDINGS: The bones are osteopenic. Bones: There is no evidence for an acute fracture or dislocation. There is no lytic or blastic lesion . Joints: There is mild narrowing of the glenohumeral joint space. There is moderate narrowing and seco ndary degenerative changes of the chronic ventricular joint. The bones are in anatomic alignment. Soft tissues: There is no focal soft tissue abnormality. There is no radiopaque foreign body. IMPRESSION: No acute osseous pathology. Osteopenia and osteoarthritis. ACT 112: Negative or not required by law. Electronically signed by: Joo Roche M.D. 07/01/2021 10:27 AM
--- NOTE | 2021-07-01 11:08 | Billing Data ---
Date of Service July 01, 2021 Coding Level of Care Code 87709 Subseq Hosp Care Lvl 3
--- NOTE | 2021-07-01 11:42 | Cardiology Consultation ---
Date of Consultation July 01, 2021 Assessment & Plan (1) Syncope: -most likely secondary to high degree AV block. -stable on intravenous dopamine. -agree with holding metoprolol succinate. -needs permanent pacemaker. -Dr. Whitley will place the pacemaker tomorrow morning. -NPO after midnight. (2) Heart block: -high degree AV block at time presentation along with evidence of Mobitz type 2 second-degree AV block. -as above, permanent pacemaker tomorrow morning. (3) Elevated brain natriuretic peptide (BNP) level: -chest x-ray suggests pulmonary edema. -would administer another dose of intravenous Lasix. (4) Essential hypertension: -adequate control current regimen. History of Present Illness Attending Physician: Gabriel Arriaza MD History of Present Illness Mrs. Patel is an 85-year-old female admitted yesterday with syncope and high- grade AV block. This consultation was ordered to assist in her cardiac management. The patient was in her usual state of health until approximately 3-4 months ago when began to note intermittent dizziness. This occurred several times every day. Over the week leading up to her presentation, patient had numerous falls. On the evening of presentation, the patient was witnessed to fall to the floor and demonstrates seizure-type activity. When she awoke, she was somewhat disoriented and had no memory of the event. The patient presented to the emergency room where she was found to be in sinus rhythm with 2-1 av block. She was started on intravenous dopamine and admitted to the ICU. This morning, when the patient was getting onto the bed heath, she experienced an episode of heart block and syncope. The patient has never known of a cardiac event. She was seen by Dr. Rivas several years ago for symptomatic PACs and PVCs. Currently, patient is resting comfortably in bed without complaints. Past medical and surgical history 1. Hypertension 2. RBBB 3. Symptomatic PVCs 4. Symptomatic PACs 5. Hyperglycemia 6. GERD 7. MGUS 8. Gout 9. Asthma 10. Pulmonary nodules 11. Chronic inflammatory demyelinating polyneuropathy 12. Bipolar disorder 13. Occipital neuralgia 14. Thyroid nodules 15. Osteoporosis 16. Spinal stenosis 17. Colonic polyps 18. Vitamin-D deficiency 19. Venous stasis 20. Legal blindness 21. Cholecystectomy 22. TKR-2002 23. THR-2008 24. Intra-ocular lens implants 25. Ulnar nerve release Social history Single, lives with her son Smokes 3 cigarettes per day, 30 pack year history No alcohol Family history Mother in her 80s of colon carcinoma Father in his 60s from ALS No early coronary artery disease Review of systems A 10 point review systems was undertaken and negative except for that described above. Allergies Allergy/AdvReac Type Severity Reaction Status Date / Time prednisone Allergy Severe ANAPHYLAXIS Verified 06/30/21 21:41 metronidazole Allergy Unknown RASH, FEVER Verified 06/30/21 21:41 LaMICtal TABS Allergy Mild rash Uncoded 06/30/21 21:41 Pred Forte SUSP Allergy Mild rash Uncoded 06/30/21 21:41 Flagyl TABS Allergy rash Uncoded 06/30/21 21:41 indomethacin AdvReac rash Uncoded 06/30/21 21:41 Home Medications Medication Instructions Recorded Confirmed Type Al hyd-Mg tr-alg ac-sod bicarb 80 1 tab PO DAILY PRN tab 12/19/18 06/30/21 History mg-14.2 mg chewable tablet (Gaviscon) cholecalciferol (vitamin D3) 125 5,000 units PO DAILY 12/19/18 06/30/21 History mcg (5,000 unit) capsule lurasidone 40 mg tablet (Latuda) 40 mg PO QPM 12/19/18 06/30/21 History polyethylene glycol 3350 17 gram 17 gm PO DAILY PRN 12/19/18 06/30/21 History oral powder packet (Miralax) simethicone 80 mg chewable tablet 80 mg PO DAILY PRN 12/19/18 06/30/21 History furosemide 20 mg tablet 20 mg PO DAILY PRN #90 tab 05/01/19 06/30/21 Rx zoledronic acid 5 mg/100 mL in See Rx Instructions .ROUTE 05/01/19 06/30/21 Rx mannitol 5 %-water intravenous .COMPLEX #100 ml piggybck (Reclast) cyanocobalamin (vitamin B-12) 1,000 mcg PO DAILY 10/19/19 06/30/21 History 1,000 mcg capsule bupropion HCl 100 mg tablet,12 hr 100 mg PO BID 10/31/19 06/30/21 History sustained-release (Wellbutrin SR) oxycodone-acetaminophen 5 mg-325 1 tab PO BID PRN tab 01/09/20 06/30/21 History mg tablet (Percocet) immune glob,gamma(IgG) 10 30 gm IV .COMPLEX 30 Days #3 ea 03/28/20 06/30/21 Rx xadz-atj-qoal-IgA 0 to 50 mcg/mL IV solution (Gammagard S-D (IgA < 1 mcg/mL)) pantoprazole 40 mg tablet,delayed 40 mg PO DAILY #90 tab 11/28/20 06/30/21 Rx release sertraline 50 mg tablet 50 mg PO DAILY #30 tab 06/15/21 06/30/21 Rx amlodipine 10 mg tablet 10 mg PO QPM 06/30/21 06/30/21 History gabapentin 400 mg capsule 800 mg PO BID 06/30/21 06/30/21 History metoprolol succinate 25 mg 50 mg PO QAM 06/30/21 06/30/21 History tablet,extended release 24 hr triamcinolone acetonide 0.1 % 1 applic TOP BID PRN 06/30/21 06/30/21 History topical ointment Patient History Medical History (Updated 07/01/21 @ 01:02 by Jasmin Rodriguez DO) Anxiety disorder Bipolar disorder Chronic asthmatic bronchitis Chronic constipation Chronic inflammatory demyelinating polyneuropathy Depression Diastolic dysfunction Diverticulosis Essential hypertension Gastroesophageal reflux disease without esophagitis Gout Insomnia Kyphoscoliosis Legally blind Lumbosacral radiculopathy at S1 MGUS (monoclonal gammopathy of unknown significance) Multiple pulmonary nodules Multiple thyroid nodules Occipital neuralgia Opiate dependence Osteoporosis PAC (premature atrial contraction) Prediabetes Premature ventricular contractions Right bundle branch block (RBBB) Sacroiliitis Spinal stenosis of cervical region Spinal stenosis of lumbar region with radiculopathy Spondylolisthesis of lumbar region Thoracic facet syndrome Tubular adenoma of colon Urinary incontinence Venous stasis dermatitis Vitamin D deficiency Surgical History H/O total knee replacement (2002) Right History of total hip arthroplasty (2008) Left Hx of cholecystectomy S/P arthroscopy of right shoulder w/ rotator cuff repair S/P cataract surgery S/P decompression of ulnar nerve at elbow (2001) b/l S/P eye surgery R eye discission of vitreous by pars plana approach Family History Mother Colon cancer Hypertension Father Acquired amyotrophic lateral sclerosis Hypertension Brother Acute pneumonitis Hypertension Sister Acute pneumonitis Hypertension Denies family history of Ovarian cancer Prostate cancer Coronary heart disease Heart disease Breast cancer Lung cancer Social History Smoking Status: Current every day smoker Tobacco Type: Cigarettes Age Started Using Tobacco: 20; Cigarettes Per Day: 3; Second Hand Exposure: Yes (son smokes outdoors with pt); Do You Dip or Chew Tobacco: No; Tobacco Cessation Education Requested by Patient: No Hx Alcohol Use: No Hx Substance Use: No Preferred Language: Malagasy Communication Ability: Effective Visual Impairment: Limited Hearing Ability: Normal First Aid Nurse Required: No Beliefs That Will Affect Care: Advent marital status: Single Current Living Situation: Family Current Living Situation Comment: Lives with sons. current occupational status: retired How many Children do You have: 5 How many Children do You have Comment: lost one child- 4 living Other Information That Helps Us Care for You: No Feels Safe at Home: Yes Safety Concerns: Feels Safe At This Time Childhood Exposure to Second-Hand Smoke: Yes caffeine: Yes during the past year weight has: increased > 10 lbs Dental Care, Regularly: Yes Physical Activity Frequency: 5-6 Times per Week Physical Activity Frequency Comment: walk Seatbelt Use: always Sunscreen Use: No Assistive Devices: Glasses Physical Exam Physical Exam: In general is well-developed well-nourished white female no acute distress. HEENT exam is negative. Neck is supple with full carotid upstrokes. There are no carotid bruits. Jugular venous pressure is difficult to assess. Cardiovascular exam reveals a regular rhythm with a 2/6 basal systolic ejection murmur. Lungs are clear without rales, rhonchi or wheezes. Abdomen is soft nontender without bruits. Extremities reveal intact radial artery pulses bilaterally. There is no peripheral edema. Results & Data ([facility]) Vital Signs (Past 12 Hours) Vital Signs Temp Pulse Pulse Resp BP BP Pulse Ox 07/01/21 11:00 143/47 H 07/01/21 10:30 59 L 24 93 07/01/21 10:00 40 L 23 92 07/01/21 09:30 37 L 16 92 07/01/21 09:00 45 L 17 134/55 L 93 07/01/21 08:30 40 L 21 93 07/01/21 08:00 36.9 C 40 L 19 145/43 H 91 07/01/21 07:30 47 L 20 91 07/01/21 07:00 39 L 22 137/51 L 91 07/01/21 06:30 49 L 17 90 07/01/21 06:00 40 L 18 131/51 L 91 07/01/21 05:46 44 L 18 92 07/01/21 05:30 50 L 33 H 89 L 07/01/21 05:00 47 L 23 146/83 H 89 L 07/01/21 04:30 44 L 21 92 07/01/21 04:00 37 C 42 L 21 144/55 H 91 07/01/21 03:30 45 L 20 91 07/01/21 03:00 43 L 18 144/48 H 91 07/01/21 02:30 45 L 20 91 07/01/21 02:00 42 L 18 136/49 L 91 07/01/21 01:30 49 L 17 91 07/01/21 01:00 47 L 21 136/64 91 07/01/21 00:30 45 L 17 93 07/01/21 00:00 42 L 20 127/47 L 91 06/30/21 23:41 36.6 C 45 L 18 117/83 91 Laboratory Results CBC notes hemoglobin of 12.7, hematocrit 36.5, white count 13.9, and platelet count 320 1000. Electrolytes note a sodium of 125, potassium 4.9, chloride 95, bicarb 25, BUN 17, creatinine 1.09, glucose of 145. Two troponin I levels are undetectable less than 0.015. TSH is normal at 1.35. Magnesium level is normal at 2.2. BNP is elevated 2783. Diagnostic Findings Initial EKG notes sinus rhythm with 2-1 AV conduction and a complete right bundle branch block. Second tracing notes Mobitz 2 second-degree AV block. Third tracing again notes sinus rhythm with 2-1 av block and complete right bundle branch block. Chest x-ray notes interstitial edema. PG Care Time/CCT Total # of Minutes Spent Total Time Spent with Patient: Total time spent is greater than 50% in coordination of care (as documented) at patient's floor/unit and/or counseling patient: Coding Level of Care Code 82191 Initial Inpt Care Lvl 3 Diagnoses Syncope R55 Heart block I45.9 Elevated brain natriuretic peptide (BNP) level R79.89 Essential hypertension I10
--- NOTE | 2021-07-01 12:10 | XCELERA ---
[id number]
[2021-07-01] MEDS: buPROPion SR 100 MG TABCR PO SCH ×2 (13:07→21:54)
[2021-07-01] MEDS: PANTOprazole 40 MG TAB PO SCH (13:07)
[2021-07-01] MEDS: GABAPENTIN 400 MG CAP PO SCH ×2 (13:07→21:54)
[2021-07-01] MEDS: SERTRALINE HCL 50 MG TABLET PO SCH (13:10)
--- NOTE | 2021-07-01 13:32 | Electrocardiogram Report ---
Test Reason : Blood Pressure : / mmHG Vent. Rate : 039 BPM Atrial Rate : 039 BPM P-R Int : 212 ms QRS Dur : 138 ms QT Int : 502 ms P-R-T Axes : 000 -29 076 degrees QTc Int : 404 ms Normal sinus rhythm with 2:1 A-V conduction Right bundle branch block Left ventricular hypertrophy with repolarization abnormality Abnormal ECG When compared with ECG of 13-AUG-2017 18:09, Significant changes have occurred Confirmed by Pawan Pino ([id number]) on 07/01/2021 1:32:43 PM Referred By: REFERRED SELF Confirmed By:Pawan Pino
--- NOTE | 2021-07-01 13:39 | Electrocardiogram Report ---
Test Reason : Blood Pressure : / mmHG Vent. Rate : 048 BPM Atrial Rate : 048 BPM P-R Int : 220 ms QRS Dur : 150 ms QT Int : 512 ms P-R-T Axes : 060 -57 028 degrees QTc Int : 457 ms Sinus bradycardia with 1st degree A-V block with 2nd degree A-V block (Mobitz II) Right bundle branch block Left anterior fascicular block Bifascicular block Minimal voltage criteria for LVH, may be normal variant Abnormal ECG When compared with ECG of 30-JUN-2021 20:23, (unconfirmed) Mobitz II is now Present QT has lengthened Confirmed by Pawan Pino ([id number]) on 07/01/2021 1:38:32 PM Referred By: REFERRED SELF Confirmed By:Pawan Pino
--- NOTE | 2021-07-01 13:50 | Electrocardiogram Report ---
Test Reason : Blood Pressure : / mmHG Vent. Rate : 045 BPM Atrial Rate : 091 BPM P-R Int : 216 ms QRS Dur : 140 ms QT Int : 474 ms P-R-T Axes : 059 -67 032 degrees QTc Int : 410 ms Sinus rhythm with 2nd degree A-V block with 2:1 A-V conduction Right bundle branch block Left anterior fascicular block Bifascicular block Abnormal ECG When compared with ECG of 30-JUN-2021 21:16, (unconfirmed) QT has shortened Confirmed by Pawan Pino ([id number]) on 07/01/2021 1:49:56 PM Referred By: REFERRED SELF Confirmed By:Pawan Pino
[2021-07-01] MEDS: oxyCODONE/ACETAMINOPHEN 5mg/325mg TAB PO PRN (16:09)
[2021-07-01] MEDS: amLODIPine BESYLATE 5 MG TAB PO SCH (21:54)
[2021-07-01] MEDS: LURASIDONE HCL 40 MG TAB PO SCH (21:55)
--- NOTE | 2021-07-01 23:34 | Billing Data ---
Date of Service July 01, 2021 Coding Level of Care Code Critical Care 1st - mins
[2021-07-02] MEDS: DOPAMINE / D5W 400 MG/250 ML BRADYCARDIA IV SCH ×5 (00:57→21:58)
[2021-07-02 05:37] LABS: Basophils # (auto) 0.01 K/uL (0-0.2); Basophils % (auto) 0.1 %; Eosinophils # (auto) 0.07 K/uL (0-0.5); Eosinophils % (auto) 0.5 %; Hematocrit (blood only) 37.9 % (37-47); Hemoglobin 13.3 g/dL (12.0-16.0); Immature Granulocytes # (auto) 0.04 K/uL (0.00-0.02); Immature Granulocytes % (auto) 0.3 %; Lymphocytes # (auto) 0.97 K/uL (1.2-3.4); Lymphocytes % (auto) 6.8 %; Mean Corpuscular Hemoglobin 31.8 pg (25-34); Mean Corpuscular Hgb Conc 35.1 g/dL (32-36); Mean Corpuscular Volume 90.7 fL (80-100); Monocytes # (auto) 1.84 K/uL (0.11-0.59); Monocytes % (auto) 12.9 %; Neutrophils # (auto) 11.36 K/uL (1.4-6.5); Neutrophils % (auto) 79.4 %; Platelet Count 338 K/uL (130-400); RDW Coefficient of Variation 13.3 % (11.5-14.5); RDW Standard Deviation 43.5 fL (36.4-46.3); Red Blood Count 4.18 M/uL (4.2-5.4); White Blood Count 14.29 K/uL (4.8-10.8)
[2021-07-02 06:07] LABS: BUN Creatinine Ratio 15.3 (10-20); Calcium 8.4 mg/dl (8.5-10.1); Creatinine Clr Calc Pharmacy 58.3 ml/min; Est GFR (African American) 70.4 ml/min; Est GFR (Non-African American) 60.8 ml/min; Magnesium 2.1 mg/dl (1.8-2.4); Potassium 4.3 mmol/L (3.5-5.1)
--- NOTE | 2021-07-02 08:25 | Critical Care Progress Note ---
Date of Service July 02, 2021 Assessment & Plan (1) Heart block: Plan: Reason Critically Ill: Shira Patel is an 85yo female who was admitted to [facility], to the ICU, for syncope 2/2 second degree AV block that is requiring Dopamine gtt. Neuro - Appears to be developing some potential mild delirium. Continue to follow currently. Maintain sleep-wake cycles. Avoid medications known to precipitate delirium. Depression - continue bupropion, Latuda, sertraline (QTc ok) Cardiac -plan to [employer] today for permanent pacemaker. Should be able to come off dopamine at that point time and once the pacemaker is placed, she can likely downgrade out of the ICU to telemetry status. Echo showed no decrease in systolic function. Diastolic dysfunction was present. She has been diuresed with improvement in her oxygen requirement. Additional diuretics per card iology. Respiratory -chest x-ray with pulmonary congestion. Status post diuresis with improvement in oxygenation. Patient does have a history of tobacco abuse. No evidence of bronchospasm. Continue incentive spirometry and wean oxygen as tolerated. Consideration for outpatient PFTs may be appropriate. Patient was counseled regarding importance of smoking cessation GI - NPO pending decision regarding PPM placement RENAL/LYTES - Hyponatremia correcting with diuresis. Electrolytes and kidney function and acid-base status otherwise normal - Strict I's and O's ENDO - Glycemic protocol HEME - No evidence of anemia. Leukocytosis as noted in ID ID - Mild leukocytosis this morning but no fevers. Continue to follow clinically. LINES/IV ACCESS - Peripheral IVs intact. DVT PROPHYLAXIS - SCDs, hold anticoagulation for now as patient may require pacemaker insertion Discussed with bedside nurse and patient and on multidisciplinary rounds. Once the pacemaker is in place the patient can downgrade out of the ICU at which point time critical care services will sign off. Feel free to contact us if we can be of additional assistance (2) Symptomatic bradycardia: (3) Syncope: (4) Hyponatremia: (5) Elevated brain natriuretic peptide (BNP) level: (6) Bipolar disorder: (7) Anxiety disorder: (8) Depression: (9) Chronic inflammatory demyelinating polyneuropathy: (10) Gastroesophageal reflux disease without esophagitis: (11) Gout: (12) Insomnia: (13) Osteoporosis: Admission and Anticipated Discharge Date Admission Date: June 30, 2021 Subjective Patient seen and examined. Discussed with critical care nurse and patient at bedside. She required some Percocet for chronic back pain which she takes at home. She states she is doing well. No additional syncopal episodes. She denies any chest pain or palpitations. No issues with breathing. No cough or sputum production. She is n.p.o. go to the [employer] for pacemaker today. She is slightly confused today but pleasant. No issues overnight Review of Systems Review of Systems: All systems reviewed & are unremarkable except as noted in Subjective Physical Exam Constitutional: WD/WN, vitals as above Neck: trachea midline, no thyromegaly Respiratory: normal respiratory effort, lungs clear to auscultation Cardiovascular: Rate/Rhythm: + bradycardic Heart Sounds: normal S1, normal S2 and + murmur Extremities: no edema Gastrointestinal (Abdomen): normal bowel sounds, soft, nontender, no hepatosplenomegaly Musculoskeletal: Extremities: extremities normal to inspection Skin: no rashes, warm and dry Neurologic: Slightly confused today Lymphatic: no cervical lymphadenopathy Results & Data Results & Data ([facility]) Vital Signs (Past 12 Hours) Vital Signs Temp Pulse Pulse Resp BP BP Pulse Ox 07/02/21 05:00 43 L 18 149/54 H 92 07/02/21 04:00 36.8 C 56 L 22 111/68 92 07/02/21 03:00 41 L 15 144/49 H 92 07/02/21 02:00 46 L 16 146/73 H 92 07/02/21 00:00 36.6 C 50 L 50 L 14 152/60 H 152/60 H 95 07/01/21 23:00 49 L 14 147/54 H 95 07/01/21 22:00 47 L 22 149/61 H 94 07/01/21 21:00 41 L 13 152/57 H 94 Coding Level of Care Code 48865 Subseq Hosp Care Lvl 2 Diagnoses Heart block I45.9 Symptomatic bradycardia R00.1 Syncope R55 Hyponatremia E87.1 Elevated brain natriuretic peptide (BNP) level R79.89 Bipolar disorder F31.9 Anxiety disorder F41.9 Depression F32.9 Chronic inflammatory demyelinating polyneuropathy G61.81 Gastroesophageal reflux disease without esophagitis K21.9 Gout M10.9 Insomnia G47.00 Osteoporosis M81.0
--- NOTE | 2021-07-02 08:26 | Pre Anesthesia Assessment ---
Date of Service July 02, 2021 Pre Sedation Assessment Vital Signs Temp Pulse Pulse Resp BP BP Pulse Ox 07/02/21 05:00 43 L 18 149/54 H 92 07/02/21 04:00 36.8 C 56 L 22 111/68 92 07/02/21 03:00 41 L 15 144/49 H 92 07/02/21 02:00 46 L 16 146/73 H 92 07/02/21 00:00 36.6 C 50 L 50 L 14 152/60 H 152/60 H 95 07/01/21 23:00 49 L 14 147/54 H 95 07/01/21 22:00 47 L 22 149/61 H 94 07/01/21 21:00 41 L 13 152/57 H 94 07/01/21 20:00 36.7 C 49 L 18 157/50 H 93 07/01/21 19:35 52 L 17 154/61 H 90 07/01/21 19:00 51 L 14 156/56 H 88 L 07/01/21 18:30 51 L 15 90 07/01/21 18:00 44 L 17 149/53 H 90 07/01/21 17:00 45 L 19 147/57 H 89 L 07/01/21 16:56 36.6 C 07/01/21 16:30 42 L 17 92 07/01/21 16:01 146/52 H 07/01/21 16:00 38 L 17 92 07/01/21 15:30 43 L 20 94 07/01/21 15:01 143/57 H 07/01/21 15:00 39 L 20 91 07/01/21 14:30 48 L 21 91 07/01/21 14:01 145/52 H 07/01/21 14:00 39 L 21 91 07/01/21 13:30 42 L 18 92 07/01/21 13:01 144/53 H 07/01/21 13:00 40 L 21 92 07/01/21 12:30 40 L 18 93 07/01/21 12:01 159/52 H 07/01/21 12:00 43 L 21 89 L 07/01/21 11:30 46 L 15 93 07/01/21 11:00 54 L 24 143/47 H 87 L 07/01/21 10:30 59 L 24 93 07/01/21 10:00 40 L 23 92 07/01/21 09:30 37 L 16 92 07/01/21 09:00 45 L 17 134/55 L 93 07/01/21 08:30 40 L 21 93 Cardiovascular + bradycardic Respiratory + respiratory effort normal Pre-Sedation Airway Assessment Smoking Status: Current every day smoker Hx Sleep Apnea: No Hx Difficult Intubation: No Short, Thick Neck: No Thyromental Distance: > or= 3.5 Finger Breadths Oral Cavity: + WNL Mallampati Class: III ASA: ASA3 Procedure Planning Contraindications for Sedation: none Current Medications Reviewed: Yes Notes The planned sedation has been discussed with the patient. Informed Consent was obtained. I have identified the patient, determined the appropriateness of sedation and have assessed the patient immediately prior to the procedure. All medicine(s) and interventions are by my order.
[2021-07-02] MEDS ORDERED: LIDOCAINE 1% LOCAL 20 ML VIAL ONE (10:33)
[2021-07-02] MEDS ORDERED: fentaNYL citrate 100 MCG/2 ML VIAL ONE (10:34)
[2021-07-02] MEDS ORDERED: VANCOMYCIN HCL 1000MG/20ML VIAL ONE (10:34)
[2021-07-02] MEDS ORDERED: BUPIVACAINE 0.5 % 5 MG/1 ML PF 10ML VIAL ONE (10:34)
[2021-07-02] MEDS ORDERED: MIDAZOLAM HCL 5 MG/ML 1 ML VIAL ONE (10:34)
[2021-07-02] MEDS ORDERED: WATER, STERILE FOR INJ 10 ML VIAL ONE (10:34)
--- NOTE | 2021-07-02 10:39 | Hospitalist Progress Note ---
Date of Service July 02, 2021 Assessment & Plan (1) Symptomatic bradycardia: Plan: Shira is an 85-year-old female who presented with lightheadedness/syncope/presyncope and who was admitted for symptomatic bradycardia. Symptomatic bradycardia with syncope, improved On admission [id number] on telemetry while on dopamine EKG: Second-degree Mobitz 2 heart block Cardiac pacer successfully placed with normalization of rate Symptoms improved Stable for downgrade to medical telemetry -Observe overnight, optimize electrolytes PT/OT pending, dispo pending recommendations (2) Heart block: Plan: Second-degree Mobitz 2 heart block Management as above (3) Hyponatremia: Plan: Hypovolemic hyponatremia likely 2/2 acute on chronic diastolic CHF Continue Lasix 40 mg IV daily (4) Anxiety disorder: Plan: Continue home medications as noted below (5) Bipolar disorder: Plan: Continue bupropion 100 mg p.o. twice daily Continue lurasidone 40 mg p.o. every afternoon Continue sertraline 50 mg p.o. daily (6) CHF (congestive heart failure): Plan: -Diastolic, echo with normal LV SF, no regional wall motion abnormalities, EF 65-70% Continue Lasix No wheezing on exam Albuterol nebulizers every 4 hours as needed SPO2 as needed (7) HTN (hypertension): Plan: Continue amlodipine 10 mg every afternoon Adequate blood pressure control today Metoprolol resumed now that patient is paced for hypertension, patient with short run of V. tach postoperatively nonsustained without hemodynamic compromise Admission and Anticipated Discharge Date Admission Date: June 30, 2021 Subjective Patient is seen at bedside in the presence of her son. Feels a little headache, a little lightheaded but overall well. Is listening to an audiobook. Reports she has had some back pain with ambulation previously, feels comfortable in bed at this time. Denies chest pain, chest pressure, palpitations, shortness of breath, syncope, nausea, vomiting, diarrhea. 8 beat run of V. tach occurred at 1734, normotensive without SX. Pacer successfully placed, no complications and patient feels well from recovery. Review of Systems Review of Systems: All systems reviewed & are unremarkable except as noted in Subjective Physical Exam Physical Exam: General: A&Ox3. NAD. Cooperative. HEENT: Atraumatic, normocephalic. Pupils equal and reactive to light. Visual acuity and hearing grossly intact. Extraocular movements grossly intact. Thorax: Pacer in place at left upper chest, postsurgical dressing in place C/D/I. Pulm: Diminished, bibasilar crackles without overt rales, -rhonchi. Symmetrical chest rise. No increase work of breathing. No respiratory distress. Cardiac: Regular rate, -mrg. Radial pulses intact and symmetrical. Abdominal: Nontender, nondistended, soft. BS present. : Tapia in place draining clear yellow urine Results & Data Results & Data ([facility]) Vital Signs (Past 12 Hours) Vital Signs Temp Pulse Pulse Resp BP BP Pulse Ox 07/02/21 10:18 56 L 16 157/48 H 97 07/02/21 08:00 61 18 92 07/02/21 07:00 59 L 19 89 L 07/02/21 06:00 60 19 91 07/02/21 05:00 43 L 18 149/54 H 92 07/02/21 04:00 36.8 C 56 L 22 111/68 92 07/02/21 03:00 41 L 15 144/49 H 92 07/02/21 02:00 46 L 16 146/73 H 92 07/02/21 00:00 36.6 C 50 L 50 L 14 152/60 H 152/60 H 95 07/01/21 23:00 49 L 14 147/54 H 95 PG Care Time/CCT Total # of Minutes Spent Total Time Spent with Patient: Total time spent is greater than 50% in coordination of care (as documented) at patient's floor/unit and/or counseling patient: Coding Level of Care Code 98679 Subseq Hosp Care Lvl 3 Diagnoses Symptomatic bradycardia R00.1 Heart block I45.9 Hyponatremia E87.1 Anxiety disorder F41.9 Bipolar disorder F31.9 CHF (congestive heart failure) I50.33 Heart failure type: diastolic Heart failure chronicity: acute on chronic HTN (hypertension) I10 (1) CHF (congestive heart failure) Heart failure type: diastolic Heart failure chronicity: acute on chronic Qualified Code(s): I50.33 - Acute on chronic diastolic (congestive) heart failure
--- NOTE | 2021-07-02 11:59 | Electrophysiology Report ---
Date of Service July 02, 2021 Electrophysiology Procedure Electrophysiology Procedure Report Procedure performed: Implantation of dual-chamber permanent pacemaker with left bundle pacing lead Staff legal office administrator: Drake Whitley MD Indication: The patient is an 85-year-old woman who presented to the [facility] with an episode of syncope. She was noted to have high degree AV block. Based on her symptoms and conduction disease she was felt to be a good candidate for a permanent pacemaker due to symptomatic nonreversible AV node dysfunction. Dual-chamber device was selected and she is currently in sinus rhythm and wish to maintain AV synchrony. Procedure in detail: The patient was informed of the risks benefits and alternatives to the intended procedure and she wished to proceed. She was taken to the electrophysiology suite in a fasting state. A preoperative antibiotic had been administered. The patient was monitored electrocardiographically throughout today's procedure and conscious sedation was administered per protocol. The left upper pectoral area is prepped and draped in usual sterile fashion. This area was anesthetized using subcutaneous administration of a xylocaine solution. An incision was made at this site and carried down to the prepectoralis fascia using sharp dissection. Electrocautery was also employed for dissection as well as for hemostasis. A device pocket was fashioned tissues above the pectoralis muscle. Subsequent to this maneuver the left axillary vein was accessed using modified Seldinger technique. A sheath was placed over guidewire at the site initially used to facilitate passage of a pacing lead to the right ventricular apex under fluoroscopic guidance. Adequate sensing and threshold parameters were obtained and the lead was fixated into place with active-fixation. A second sheath was placed over a guidewire and used to facilitate passage of a guiding catheter to deliver a lead to the area of the interventricular septum. This lead was advanced into the interventricular septum and waveforms monitored until the left bundle was captured. The initial right ventricular pacing lead was then removed from the right ventricle and placed in the right atrium. Adequate sensing and threshold parameters were obtained prior to active-fixation of this lead to the endocardial surface. The proximal portion of the lead was then sutured the prepectoralis fascia nonabsorbable suture. The septal lead guiding catheter was then removed. The proximal portion of this lead was then sutured to the prepectoralis fascia using nonabsorbable suture. The device pocket was irrigated with antibiotic solution. The leads were then attached to the device. The device and leads were then placed in the pocket and pocket was closed in 3 layers of absorbable suture. Steri-Strips and sterile dressing were applied. The device was tested noninvasively prior to conclusion the procedure. The patient tolerated procedure well there no immediate complications. Equipment used: New pulse generator: [employer]. Model number: [id number] serial number [id number] Right atrial lead: [employer]. Model number: [id number] serial number [id number] Right ventricular lead: [employer]. Model number: 3830 serial number [id number] Measured data: Right atrial lead: P waves measured 1.4 mV. Pacing threshold 1.2 V at 0.5 ms with a pacing impedance of 547 ohms Right ventricular lead: R waves measured 9.3 mV. Pacing threshold was 0.6 V at 0.5 ms with a pacing impedance of 788 ohms Impression: Successful implantation of dual-chamber permanent pacemaker with left bundle pacing lead [facility] Electrophysiology codes Pacing Procedure 1: Pacin Insert/Replace Pacer A & V PG Moderate Sedation Codes Moderate Sedation Codes Procedure 1: Sedation/Anesthesia: 82848 Mod Sedation by the same physician;Init15 Min Child Age 5 & Up Procedure 2: Sedation/Anesthesia: 42083 Mod Sedation by the same physician; Ea [id number] Minutes
--- NOTE | 2021-07-02 12:00 | Post Anesthesia Assessment ---
Date of Service July 02, 2021 Post Sedation Assessment Vital Signs Temp Pulse Pulse Resp BP BP Pulse Ox 07/02/21 10:18 56 L 16 157/48 H 97 07/02/21 08:00 61 18 92 07/02/21 07:00 59 L 19 89 L 07/02/21 06:00 60 19 91 07/02/21 05:00 43 L 18 149/54 H 92 07/02/21 04:00 36.8 C 56 L 22 111/68 92 07/02/21 03:00 41 L 15 144/49 H 92 07/02/21 02:00 46 L 16 146/73 H 92 07/02/21 00:00 36.6 C 50 L 50 L 14 152/60 H 152/60 H 95 07/01/21 23:00 49 L 14 147/54 H 95 07/01/21 22:00 47 L 22 149/61 H 94 07/01/21 21:00 41 L 13 152/57 H 94 07/01/21 20:00 36.7 C 49 L 18 157/50 H 93 07/01/21 19:35 52 L 17 154/61 H 90 07/01/21 19:00 51 L 14 156/56 H 88 L 07/01/21 18:30 51 L 15 90 07/01/21 18:00 44 L 17 149/53 H 90 07/01/21 17:00 45 L 19 147/57 H 89 L 07/01/21 16:56 36.6 C 07/01/21 16:30 42 L 17 92 07/01/21 16:01 146/52 H 07/01/21 16:00 38 L 17 92 07/01/21 15:30 43 L 20 94 07/01/21 15:01 143/57 H 07/01/21 15:00 39 L 20 91 07/01/21 14:30 48 L 21 91 07/01/21 14:01 145/52 H 07/01/21 14:00 39 L 21 91 07/01/21 13:30 42 L 18 92 07/01/21 13:01 144/53 H 07/01/21 13:00 40 L 21 92 07/01/21 12:30 40 L 18 93 07/01/21 12:01 159/52 H 07/01/21 12:00 43 L 21 89 L Recovery Score Activity: Moves 4 extremities Respiration: Deep Breath/Cough Circulation: +/-20% PreAnes Value Consciousness: Fully Awake Oxygen Saturation: > 92% On Room Air Discharge Sedation Level of Care: Fast Track Phase II Post Sedation Plan On clinical assessment, the patient appears to have tolerated the sedation without complications. Patient is recovering as anticipated. Patient will continue to be monitored by nursing and may be discharged when sedation discharge criteria are met per below protocol. Upon Completions of procedure up to 15 minutes continue every 5 minute vital signs and the P.A.R. score; then discharge to a Phase I or Fast Track to Phase II per the following guidelines: * Discharge Patient to appropriate Phase II area if PAR is 8 or greater or return to pre- procedure baseline. The post - procedure orders will be as directed. * If PAR score is less than 8 or not return to pre-procedure baseline then patient will follow Phase I monitoring till PAR is reached for Phase II. The Phase I may be done in procedure room or may call to secure a Phase I area. * If naloxone or flumazenil are used for reversal, hold in Phase I for continued monitoring from when last reversal dose was given for a minimum of 60 minutes or longer pending the nurse and/or physician discretion of patient condition before discharge to Phase II. Please call the Sedation Physician to re-evaluate and complete post-note for discharge to Phase II area. Do NOT discharge from procedure sedation or Phase 1 until post- sedation evaluation note is complete by procedure /sedation MD Sedation Discharge Instructions to be given to the patient at discharge to home.
[2021-07-02] MEDS ORDERED: oxyCODONE HCL IR 5 MG TAB (IMMEDIATE RELEASE) PO PRN (12:01)
[2021-07-02] MEDS: SERTRALINE HCL 50 MG TABLET PO SCH (14:25)
[2021-07-02] MEDS: GABAPENTIN 400 MG CAP PO SCH ×2 (14:25→21:38)
[2021-07-02] MEDS: buPROPion SR 100 MG TABCR PO SCH ×2 (14:26→21:38)
[2021-07-02] MEDS: PANTOprazole 40 MG TAB PO SCH (14:26)
[2021-07-02] MEDS: FUROSEMIDE 40 MG/4 ML VIAL IV SCH (16:22)
[2021-07-02] MEDS ORDERED: SIMETHICONE 80 MG CHEW PO PRN (16:58)
[2021-07-02] MEDS ORDERED: METOPROLOL TARTRATE 25 MG TAB PO ONE (18:02)
[2021-07-02] MEDS: ceFAZolin 2000MG 2,000 MG/15 ML SYR IV SCH (20:54)
[2021-07-02] MEDS ORDERED: METOPROLOL TARTRATE 25 MG TAB PO SCH (21:00)
[2021-07-02] MEDS: amLODIPine BESYLATE 5 MG TAB PO SCH (21:39)
[2021-07-02] MEDS: LURASIDONE HCL 40 MG TAB PO SCH (21:39)
[2021-07-03] MEDS: ceFAZolin 2000MG 2,000 MG/15 ML SYR IV SCH (04:30)
--- NOTE | 2021-07-03 06:16 | Electrocardiogram Report ---
Test Reason : Blood Pressure : / mmHG Vent. Rate : 069 BPM Atrial Rate : 069 BPM P-R Int : 144 ms QRS Dur : 150 ms QT Int : 472 ms P-R-T Axes : 017 -39 081 degrees QTc Int : 505 ms Atrial-sensed ventricular-paced rhythm with occasional AV dual-paced complexes Abnormal ECG When compared with ECG of 01-JUL-2021 05:34, Ventricular pacing is now present Vent. rate has increased BY 24 BPM Confirmed by Edu Hart ([id number]) on 07/03/2021 6:15:32 AM Referred By: REFERRED SELF Confirmed By:Edu Hart
[2021-07-03 07:48] LABS: Basophils # (auto) 0.03 K/uL (0-0.2); Basophils % (auto) 0.3 %; Eosinophils # (auto) 0.18 K/uL (0-0.5); Eosinophils % (auto) 1.6 %; Hemoglobin 12.4 g/dL (12.0-16.0); Immature Granulocytes # (auto) 0.03 K/uL (0.00-0.02); Immature Granulocytes % (auto) 0.3 %; Lymphocytes # (auto) 1.65 K/uL (1.2-3.4); Lymphocytes % (auto) 14.2 %; Mean Corpuscular Hemoglobin 31.6 pg (25-34); Mean Corpuscular Hgb Conc 34.4 g/dL (32-36); Mean Corpuscular Volume 91.6 fL (80-100); Mean Platelet Volume 8.9 fL (7.4-10.4); Monocytes # (auto) 1.46 K/uL (0.11-0.59); Monocytes % (auto) 12.6 %; Neutrophils # (auto) 8.26 K/uL (1.4-6.5); Platelet Count 312 K/uL (130-400); RDW Coefficient of Variation 13.5 % (11.5-14.5); RDW Standard Deviation 45.3 fL (36.4-46.3); Red Blood Count 3.93 M/uL (4.2-5.4); White Blood Count 11.61 K/uL (4.8-10.8)
[2021-07-03] MEDS: buPROPion SR 100 MG TABCR PO SCH ×2 (08:12→21:14)
[2021-07-03] MEDS: METOPROLOL SUCC 50MG EXT REL TAB PO SCH (08:12)
[2021-07-03] MEDS: FUROSEMIDE 40 MG/4 ML VIAL IV SCH (08:12)
[2021-07-03] MEDS: GABAPENTIN 400 MG CAP PO SCH ×2 (08:12→21:13)
[2021-07-03] MEDS: SERTRALINE HCL 50 MG TABLET PO SCH (08:12)
[2021-07-03] MEDS: PANTOprazole 40 MG TAB PO SCH (08:13)
[2021-07-03 08:39] LABS: BUN Creatinine Ratio 19.7 (10-20); Calcium 8.4 mg/dl (8.5-10.1); Creatinine Clr Calc Pharmacy 72.7 ml/min; Est GFR (African American) 92.9 ml/min; Est GFR (Non-African American) 80.1 ml/min; Magnesium 2.3 mg/dl (1.8-2.4); Potassium 3.6 mmol/L (3.5-5.1)
--- NOTE | 2021-07-03 09:39 | Cardiology Progress Note ---
Date of Service July 03, 2021 Assessment & Plan (1) Heart block: Plan: She appears have undergone successful implantation of dual-chamber permanent pacemaker without evident complication. She would be stable for discharge from our standpoint. She should keep the wound dry in the Steri-Strips intact until follow-up in our clinic next week. I will arrange for a follow-up appointment to check the wound. She should refrain from lifting left arm above the shoulder or behind the neck for 6 weeks. Admission and Anticipated Discharge Date Admission Date: June 30, 2021 Subjective This morning patient claimed he feeling well. No significant discomfort at the device implant site. Physical Exam Physical Exam: Evaluation the device implant site reveals only a small amount of ecchymosis. No significant erythema. No drainage or swelling. Results & Data ([facility]) Vital Signs (Past 12 Hours) Vital Signs Temp Pulse Pulse Pulse Resp BP BP 07/03/21 08:30 36.8 C 65 13 144/90 H 07/03/21 07:28 36.8 C 66 20 145/74 H 07/03/21 05:05 37.0 C 74 20 148/71 H 07/03/21 04:50 75 07/02/21 23:35 37.3 C 71 18 146/69 H Pulse Ox 07/03/21 08:30 94 07/03/21 07:28 93 07/03/21 05:05 92 07/03/21 04:50 07/02/21 23:35 91 Diagnostic Findings I performed a complete device interrogation which revealed normal function of both atrial ventricular leads. Chest x-ray did not reveal any pneumothorax. Lead position appears stable.
--- NOTE | 2021-07-03 09:45 | XRay Report ---
XR chest 2V PA/lateral CLINICAL HISTORY: EXACT TIME ORDERED Evaluate for pneumothorax and pacer. COMPARISON STUDY: 07/01/2021 TECHNIQUE: 2 views of the chest FINDINGS: Frontal and lateral radiographs of the chest demonstrates heart size is again being mildly large with interval placement of a dual lead permanent cardiac pacer. There is no evidence for pneumothorax. Th ere is prominence of the sonny bilaterally which is most likely related to decreased inspiration. Comp ared to previous examination, there are bilateral pleural effusions as seen on the lateral radiograph . There is associated left lower lobe atelectasis/collapse. Early pneumonia cannot be completely excl uded. There has been resolution of mild central vascular congestion. There is no acute osseous pathol ogy. IMPRESSION: Interval placement of cardiac pacer with no evidence of pneumothorax. Small bilateral ple ural effusions with left lower lobe opacity posteriorly most characteristic of atelectasis/collapse. However, early pneumonia cannot be completely excluded. Resolution of mild vascular congestion. ACT 112: Negative or not required by law. Electronically signed by: Joo Roche M.D. 07/03/2021 9:44 AM
--- NOTE | 2021-07-03 16:44 | Hospitalist Progress Note ---
Date of Service July 03, 2021 Assessment & Plan (1) Symptomatic bradycardia: Plan: Shira is an 85-year-old female who presented with lightheadedness/syncope/presyncope and who was admitted for symptomatic bradycardia. Disposition: Patient with regular rate, improved. Requires PT/OT for placement evaluations. Patient cleared to engage with PT/OT 11/12 AM. Pending strength evaluation and disposition recommendations. Symptomatic bradycardia with syncope, improved On admission 3050s on telemetry while on dopamine EKG: Second-degree Mobitz 2 heart block Cardiac pacer successfully placed with normalization of rate Symptoms improved Stable for downgrade to medical telemetry -Observe overnight, optimize electrolytes PT/OT pending, dispo pending recommendations (2) Heart block: Plan: Second-degree Mobitz 2 heart block Management as above (3) Hyponatremia: Plan: Hypovolemic hyponatremia likely 2/2 acute on chronic diastolic CHF Continue Lasix 40 mg IV daily (4) Anxiety disorder: Plan: Continue home medications as noted below (5) Bipolar disorder: Plan: Continue bupropion 100 mg p.o. twice daily Continue lurasidone 40 mg p.o. every afternoon Continue sertraline 50 mg p.o. daily (6) CHF (congestive heart failure): Plan: -Diastolic, echo with normal LV SF, no regional wall motion abnormalities, EF 65-70% Continue Lasix No wheezing on exam Albuterol nebulizers every 4 hours as needed SPO2 as needed (7) HTN (hypertension): Plan: Continue amlodipine 10 mg every afternoon Adequate blood pressure control today Metoprolol resumed now that patient is paced for hypertension, patient with short run of V. tach postoperatively nonsustained without hemodynamic compromise Admission and Anticipated Discharge Date Admission Date: June 30, 2021 Subjective Shira is seen at the bedside today. She is in no acute distress, reports she is tired and would like to continue napping. Denies chest pain, chest pressure, palpitations, shortness of breath, lightheadedness, dizziness. Does not offer other conversations or questions or concerns at bedside. Review of Systems Review of Systems: All systems reviewed & are unremarkable except as noted in Subjective Physical Exam Physical Exam: General: A&Ox3. NAD. Cooperative. HEENT: Atraumatic, normocephalic. Pupils equal and reactive to light. Visual acuity and hearing grossly intact. Extraocular movements grossly intact. Thorax: Pacer in place at left upper chest, postsurgical dressing in place C/D/I. Pulm: Diminished, bibasilar crackles without overt rales, -rhonchi. Symmetrical chest rise. No increase work of breathing. No respiratory distress. Cardiac: Regular rate, -mrg. Radial pulses intact and symmetrical. Abdominal: Nontender, nondistended, soft. BS present. : Tapia in place draining clear yellow urine Results & Data Results & Data ([facility]) Vital Signs (Past 12 Hours) Vital Signs Temp Pulse Pulse Pulse Resp BP BP 07/03/21 15:36 72 07/03/21 15:17 36.8 C 64 20 145/77 H 07/03/21 10:04 68 07/03/21 08:30 36.8 C 65 13 144/90 H 07/03/21 07:28 36.8 C 66 20 145/74 H 07/03/21 05:05 37.0 C 74 20 148/71 H 07/03/21 04:50 75 Pulse Ox 07/03/21 15:36 07/03/21 15:17 92 07/03/21 10:04 07/03/21 08:30 94 07/03/21 07:28 93 07/03/21 05:05 92 07/03/21 04:50 PG Care Time/CCT Total # of Minutes Spent Total Time Spent with Patient: Total time spent is greater than 50% in coordination of care (as documented) at patient's floor/unit and/or counseling patient: Coding Level of Care Code 94569 Subseq Hosp Care Lvl 1 Diagnoses Symptomatic bradycardia R00.1 Heart block I45.9 Hyponatremia E87.1 Anxiety disorder F41.9 Bipolar disorder F31.9 CHF (congestive heart failure) I50.33 Heart failure type: diastolic Heart failure chronicity: acute on chronic HTN (hypertension) I10 (1) CHF (congestive heart failure) Heart failure type: diastolic Heart failure chronicity: acute on chronic Qualified Code(s): I50.33 - Acute on chronic diastolic (congestive) heart failure
[2021-07-03] MEDS: amLODIPine BESYLATE 5 MG TAB PO SCH (21:13)
[2021-07-03] MEDS: LURASIDONE HCL 40 MG TAB PO SCH (21:14)
[2021-07-04] MEDS: PANTOprazole 40 MG TAB PO SCH (08:12)
[2021-07-04] MEDS: SERTRALINE HCL 50 MG TABLET PO SCH (08:12)
[2021-07-04] MEDS: GABAPENTIN 400 MG CAP PO SCH (08:13)
[2021-07-04] MEDS: METOPROLOL SUCC 50MG EXT REL TAB PO SCH (08:13)
[2021-07-04] MEDS: buPROPion SR 100 MG TABCR PO SCH (08:13)
[2021-07-04] MEDS: FUROSEMIDE 40 MG/4 ML VIAL IV SCH (08:14)
[2021-07-04] MEDS: oxyCODONE/ACETAMINOPHEN 5mg/325mg TAB PO PRN (11:18)
[2021-07-04 12:07] VITALS: TEMP 98.1
--- NOTE | 2021-07-04 13:14 | Discharge Summary ---
Date of Service July 04, 2021 Admission HPI Per Admitting Provider 85yo Female PMH HTN Depression Anxiety Bipolar, Chronic Inflammatory Demylinating Polyneuropathy, here with complaint of dizziness, falls, and 'seizure like' symptoms. Patient here with 2 sons, they describe dizziness ongoing for 3-4 months that occurs when changing position from laying to sitting too quickly, moving too quickly, and occasionally when not moving. Patient has experienced multiple falls over the past week and is not sure if she hit her head, sons note no blood or bruising. Patient's sons state tonight during dinner, the patient shouted and fell on the floor shaking and was 'out of it' and disoriented afterwards, patient states she has no recollection of this event. Patient states these 'seizure like' symptoms have never happened to her before. At this time patient describes a little shortness of breath, states she had some dizziness nausea earlier today that has since resolved, denies chest pain. Patient states they were treated for lyme disease years ago. 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 Her medications are managed by her sons who verify that she takes them regularly. Patient is on amlodipine, bupropion, latuda, metoprolol, sertraline, and neurontin, with PRN percocet and furosemide. Patient denies history of stroke, ME, heart failure, denies taking blood thinners. Patient has 30pk year history, no alcohol. Patient denies allergies to medication. Admission Exam Per Admitting Provider General: Well appearing, age appropriate Heart: bradycardic, +S1 S2, no murmurs/gallops/rubs Lungs: cta b/l, no wheezes/rales/rhonchi Abd: soft, NT/ND, +BS Extremities: +1 pitting edema of LLE, no rashes, no clubbing/cyanosis Psych:euthymic, calm, cooperative Skin: warm, dry, intact Principal Diagnosis Symptomatic bradycardia, heart block Discharge Exam General: A&Ox3. NAD. Cooperative. HEENT: Atraumatic, normocephalic. Pupils equal and reactive to light. Visual acuity and hearing grossly intact. Extraocular movements grossly intact. Thorax: Pacer in place at left upper chest, postsurgical dressing in place C/D/I. Pulm: Diminished, bibasilar crackles without overt rales, -rhonchi. Symmetrical chest rise. No increase work of breathing. No respiratory distress. Cardiac: Regular rate, -mrg. Radial pulses intact and symmetrical. Abdominal: Nontender, nondistended, soft. BS present. : Tapia in place draining clear yellow urine Discharge Data Allergies Allergy/AdvReac Type Severity Reaction Status Date / Time prednisone Allergy Severe ANAPHYLAXIS Verified 06/30/21 21:41 metronidazole Allergy Unknown RASH, FEVER Verified 06/30/21 21:41 LaMICtal TABS Allergy Mild rash Uncoded 06/30/21 21:41 Pred Forte SUSP Allergy Mild rash Uncoded 06/30/21 21:41 Flagyl TABS Allergy rash Uncoded 06/30/21 21:41 indomethacin AdvReac rash Uncoded 06/30/21 21:41 Consultations 06/30/21 21:23 ED Decision to Admit Stat 06/30/21 23:10 Consult Cardiology Routine 06/30/21 23:40 Consult Butcher Supervisor Routine Procedures Performed Operation Date: 07/02/21 11:00 Actual Procedures p Pacer with A/V Leads (Dual) - Best Whitley MD Ordered Studies 06/30/21 21:17 CT head/brain wo con Urgent 07/02/21 06:36 CL Cath Imgs for PACS use only Routine Hospital Course (1) Symptomatic bradycardia: Shira is an 85-year-old female who presented with lightheadedness/syncope/presyncope and who was admitted for symptomatic bradycardia. Symptomatic bradycardia with syncope, improved On admission 3050s on telemetry while on dopamine EKG: Second-degree Mobitz 2 heart block Cardiac pacer successfully placed with normalization of rate Symptoms improved Stable for downgrade to medical telemetry -Observed overnight, optimize electrolytes PT/OT recommended return home, consider home physical therapy services as outpatient (2) Heart block: Second-degree Mobitz 2 heart block Management as above (3) Hyponatremia: Hypovolemic hyponatremia likely 2/2 acute on chronic diastolic CHF Continue Lasix 40 mg IV daily (4) Anxiety disorder: Continue home medications as noted below (5) Bipolar disorder: Continue bupropion 100 mg p.o. twice daily Continue lurasidone 40 mg p.o. every afternoon Continue sertraline 50 mg p.o. daily (6) CHF (congestive heart failure): -Diastolic, echo with normal LV SF, no regional wall motion abnormalities, EF 65-70% Continue Lasix No wheezing on exam Albuterol nebulizers every 4 hours as needed SPO2 as needed (7) HTN (hypertension): Continue amlodipine 10 mg every afternoon Adequate blood pressure control today Metoprolol resumed now that patient is paced for hypertension, patient with short run of V. tach postoperatively nonsustained without hemodynamic compromise Total Time Total Time Spent Total Time Spent (In Minutes): Total time spent day of discharge including direct patient care, documentation, review of labs and images, and coordination of care 35 minutes Discharge Plan Discharge Items Patient Disposition: Home - Self-Care Reason For Visit: HEART FAILURE Discharge Diagnosis: Symptomatic Bradycardia Condition on Discharge: Fair Activity: Per Instructions section Non-emergency contact: Primary Care Provider and Ear Flap Binder Call non-emergency contact if: you have any medication questions, your symptoms worsen, your pain is not controlled, your pain is worsening, your pain is unusual for you and your pain is concerning for you Follow-up/Referrals: Moise Lima MD [Physician] - Janice Erickson DO [Primary Care Provider] - Diet: Heart Healthy Addtl Attending Provider Instructions: You were seen in the hospital for symptomatic bradycardia (fatigue/lightheadedness/passing out due to low heart rate)with heart block. You were treated with placement of a cardiac pacemaker with normalization of your heart rate. You are seen by physical therapy who felt you are safe for discharge home, recommended engaging with home physical therapy services. You have been discharged to continue medications as below. You should have a follow-up appointment with cardiology within 1 month. An appointment is being scheduled as noted above. If you not receive confirmation of this appointment within 5 days, please call their office at the number above. You should be seen by your primary care provider Dr. Erickson within 1 week. An appointment is being scheduled as above. If you do not receive confirmation by phone of an appointment within 2 days, please call her office directly at the number above. If you develop any new or worsening symptoms including fever, chills, sweats, chest pain, chest pressure, difficulty breathing, uncontrolled nausea/vomiting, rash, wheezing, passing out or nearly passing out, bleeding, black/bloody bowel movements, or other new or concerning symptoms please call your primary care physician, or call 911 for re-evaluation in the emergency department if you are very concerned. Pending Studies at Discharge: No Stand-Alone Forms: My [facility], Smoking Cessation Medications and DC Order Prescriptions: Continued Latuda 40 mg tablet 40 mg PO QPM RF: 0 simethicone 80 mg tablet,chewable 80 mg PO DAILY PRN (Reason: Abdominal Discomfort) RF: 0 Gaviscon 80-14.2 mg tablet,chewable 1 tab PO DAILY PRN (Reason: Indigestion) RF: 0 polyethylene glycol 3350 [Miralax] 17 gram powder in packet 17 gm PO DAILY PRN (Reason: Constipation) RF: 0 cholecalciferol (vitamin D3) 5,000 unit capsule 5,000 units PO DAILY RF: 0 cyanocobalamin (vitamin B-12) 1,000 mcg capsule 1,000 mcg PO DAILY RF: 0 Gammagard S-D (IgA < 1 mcg/mL) 10 gram recon soln 30 gm IV .COMPLEX 30 Days Qty: 3 RF: 11 sertraline 50 mg tablet 50 mg PO DAILY Qty: 30 RF: 2 zoledronic [id number] [Reclast] 5 mg/100 mL piggyback See Rx Instructions .ROUTE .COMPLEX Qty: 100 RF: 0 furosemide 20 mg tablet 20 mg PO DAILY PRN (Reason: edema) Qty: 90 RF: 1 bupropion HCl [Wellbutrin SR] 100 mg tablet sustained-release 12 hr 100 mg PO BID RF: 0 pantoprazole 40 mg tablet,delayed release (DR/EC) 40 mg PO DAILY Qty: 90 RF: 3 oxycodone-acetaminophen [Percocet] 5-325 mg tablet 1 tab PO BID PRN (Reason: pain) RF: 0 gabapentin 400 mg capsule 800 mg PO BID RF: 0 amlodipine 10 mg tablet 10 mg PO QPM RF: 0 metoprolol succinate 25 mg tablet extended release 24 hr 50 mg PO QAM RF: 0 triamcinolone acetonide 0.1 % ointment 1 applic TOP BID PRN (Reason: Rash) RF: 0 Discharge Orders: Discharge Order (Routine); Ordered 07/04/21 Ordered By: Gabriel Arriaza Admission Data Admit Date/Time: 06/30/21 22:40 Attending Provider: Gabriel Arriaza Admit Provider: Ursula Read Primary Care Provider: Janice Erickson Other Providers: Chepe Jimenezer,Moise C. ; Vincent Kennedy Coding Level of Care Code D/C DAY MANAGEMENT >30 MINS Diagnoses Symptomatic bradycardia R00.1 Heart block I45.9 Hyponatremia E87.1 Anxiety disorder F41.9 Bipolar disorder F31.9 CHF (congestive heart failure) I50.33 Heart failure type: diastolic Heart failure chronicity: acute on chronic HTN (hypertension) I10
[2021-07-04 13:43] VITALS: BP 132/70; PULSE 65
[2021-07-04 17:17] VITALS: O2SAT 91
== END 2021-07-04 16:34 | disposition home or self-care (01) | DRG 242 ==
LOC: ED 19:40 → SUATTDRO 22:40 → 1E 22:40 → 2N 07-02 12:46

== ENCOUNTER 2021-12-17 18:03 | Inpatient (IN) ==
--- NOTE | 2021-12-17 18:25 | Emergency Department Note ---
Impression & Plan Acute cholangitis, Sepsis, Nausea & vomiting, Abnormal blood electrolyte level ED Provider Note NAME: KRISTEL GU AGE: 86 SEX: F : 1935 ARRIVES VIA: Ambulance INFORMANT: [Patient][, ] ED PROVIDER(S): [Sandip Rey MD] Chief Complaint: Fever, nausea vomiting, abdominal pain, confusion HPI: Patient presents with son at bedside due to the above symptoms. The patient has developed symptoms in the last 24 hours or so. Since states she has had some mid and upper abdominal discomfort with associated vomiting. No reported blood. The patient has not complained of any chest pains or shortness of breath but does have mild headache. They did have a fever at home and was given Tylenol T-max here 99. Patient has had productive cough and is a smoker. The patient does not wear oxygen at home. Patient denies any urinary symptoms or back pain. The patient was given some oxycodone by her son prior to arrival but this did not seem to improve her abdominal pain. Son is also noticed some mild confusion where she trails off in her sentences. No reported falls or trauma. Patient is a DNI but not DNR. Of note the patient's most recent echo in June 2021 showed an EF of 60% with mild mitral regurgitation. ROS: See HPI for pertinent positives and negatives. A total of 10 systems were re viewed and otherwise negative. Past medical history: See below Surgical history: See below Social history: See below Physical Exam: GENERAL: Ill in appearance, nasal cannula in place NAD. EYE EXAM: Normal conjunctiva. PERRL, no anisocoria and EOM's grossly intact w/o pain. [OROPHARYNX: Dry mucus membranes. Grossly normal dentition. ] NECK: Supple, no nuchal rigidity, no adenopathy, non-tender. No signs of meningismus. LUNGS: Clear to auscultation. Normal chest wall mechanics. HEART: NSR, no MRG. ABDOMEN: Abdomen soft, mild mid upper abdominal discomfort, not peritonitic, normo-active bowel sounds, no masses, no rebound or guarding. BACK: No CVA TTP. SKIN: No rashes and no bruising. UPPER EXTREMITIES: Upper extremities are grossly normal. LOWER EXTREMITIES: Grossly normal, no edema. NEURO EXAM: Awake and alert, follows basic commands oriented to person, moves all 4 extremities, no obvious dysarthria. Differential diagnoses: Sepsis, UTI, pneumonia, metabolic, electrolyte abnormal ities, cardiac sources, intracerebral event, toxicologic, neurologic, as well as other pathologies. Course: Patient was seen and evaluated the bedside. Full history physical exam was performed. [EKG interpreted by me] A sensed V paced rhythm, rate of 106, wide QRS, left axis deviation. Imaging Studies: See Below [Cardiac monitoring: An order was placed for continuous cardiac monitoring. The monitor shows a rate of 98 with paced rhythm.] MDM: Patient was seen for confusion hypoxemia abdominal pain nausea vomiting. Blood work is obtained along with CT abdomen pelvis. The patient was started on IV fluids and empiric antibiotics. IV fluids were gently given given the patient's history of CHF. The patient had a white count of 23 with a normal H&H and platelet count. The patient did empirically received Zosyn. The patient's electrolytes did show mild hyponatremia and hypokalemia. The patient did receive 1500 total fluids a K rider as well as magnesium IV. The patient does have transaminitis and hyperbilirubinemia. The patient is already had a prior cholecystectomy. CT does not show any concerning findings. Patient does have an elevated high-sensitivity troponin. Believe this is secondary to the patient's sepsis. The patient's chest x-ray is clear. The patient Zosyn would likely cover for pulmonary source is a possibility. Patient's lactate is not elevated. Pro-Ejff is up at 5.3 along with a lipase of 448. I did speak with the on-call chicken cleaner Dr. Calvert recommended making the patient n.p.o. to continue the Zosyn and that they would likely proceed with an ERCP in the morning. I subsequently did speak with the on-call hospitalist Dr. Murray and the patient was admitted to the medicine service Past Med/Surg History Medical History (Updated 12/17/21 @ 23:09 by Sandip Rey MD) Anxiety disorder Bipolar disorder Chronic asthmatic bronchitis Chronic constipation Chronic inflammatory demyelinating polyneuropathy Depression Diastolic dysfunction Diverticulosis Essential hypertension Gastroesophageal reflux disease without esophagitis Gout Heart block Insomnia Kyphoscoliosis Legally blind Lumbosacral radiculopathy at S1 MGUS (monoclonal gammopathy of unknown significance) Multiple pulmonary nodules Multiple thyroid nodules Occipital neuralgia Opiate dependence Osteoporosis PAC (premature atrial contraction) Prediabetes Premature ventricular contractions Right bundle branch block (RBBB) Sacroiliitis Spinal stenosis of cervical region Spinal stenosis of lumbar region with radiculopathy Spondylolisthesis of lumbar region Symptomatic bradycardia Thoracic facet syndrome Tubular adenoma of colon Urinary incontinence Venous stasis dermatitis Vitamin D deficiency Surgical History H/O total knee replacement (2002) Right History of total hip arthroplasty (2008) Left Hx of cholecystectomy S/P arthroscopy of right shoulder w/ rotator cuff repair S/P cataract surgery S/P decompression of ulnar nerve at elbow (2001) b/l S/P eye surgery R eye discission of vitreous by pars plana approach Family History Mother Colon cancer Hypertension Father Acquired amyotrophic lateral sclerosis Hypertension Brother Acute pneumonitis Hypertension Sister Acute pneumonitis Hypertension Denies family history of Ovarian cancer Prostate cancer Coronary heart disease Heart disease Breast cancer Lung cancer Social History Smoking Status: Current every day smoker Tobacco Type: Cigarettes Age Started Using Tobacco: 20; Cigarettes Per Day: 3; Second Hand Exposure: Yes (son smokes outdoors with pt); Hx Alcohol Use: No Hx Substance Use: No Preferred Language: Tajik Communication Ability: Effective Visual Impairment: Limited Hearing Ability: Normal Laborer Hoisting Required: No Beliefs That Will Affect Care: Muslim marital status: Current Living Situation: Family Current Living Situation Comment: Lives with sons. current occupational status: retired How many Children do You have: 2 How many Children do You have Comment: lost one child- 4 living Feels Safe at Home: Yes Childhood Exposure to Second-Hand Smoke: Yes caffeine: Yes during the past year weight has: increased > 10 lbs Dental Care, Regularly: Yes Physical Activity Frequency: 5-6 Times per Week Physical Activity Frequency Comment: walk Seatbelt Use: always Sunscreen Use: No Assistive Devices: Walker Allergies Allergies Allergy/AdvReac Type Severity Reaction Status Date / Time prednisone Allergy Severe ANAPHYLAXIS Verified 12/17/21 19:27 metronidazole Allergy Unknown RASH, FEVER Verified 12/17/21 19:27 LaMICtal TABS Allergy Mild rash Uncoded 12/17/21 19:27 Pred Forte SUSP Allergy Mild rash Uncoded 04/28/22 19:27 Flagyl TABS Allergy rash Uncoded 12/17/21 19:27 indomethacin AdvReac rash Uncoded 12/17/21 19:27 Home Meds Home Medications Medication Instructions Recorded Confirmed Al hyd-Mg tr-alg ac-sod bicarb 80 1 tab PO DAILY PRN tab 12/19/18 12/17/21 mg-14.2 mg chewable tablet (Gaviscon) cholecalciferol (vitamin D3) 125 5,000 units PO DAILY 12/19/18 12/17/21 mcg (5,000 unit) capsule lurasidone 40 mg tablet (Latuda) 40 mg PO QPM 12/19/18 12/17/21 polyethylene glycol 3350 17 gram 17 gm PO DAILY PRN 12/19/18 12/17/21 oral powder packet (Miralax) simethicone 80 mg chewable tablet 80 mg PO DAILY PRN 12/19/18 12/17/21 cyanocobalamin (vitamin B-12) 1,000 mcg PO DAILY 10/19/19 12/17/21 1,000 mcg capsule bupropion HCl 100 mg tablet,12 hr 100 mg PO BID 10/31/19 12/17/21 sustained-release (Wellbutrin SR) oxycodone-acetaminophen 5 mg-325 1 tab PO BID PRN tab 01/09/20 12/17/21 mg tablet (Percocet) triamcinolone acetonide 0.1 % 1 applic TOP BID PRN 06/30/21 12/17/21 topical ointment Previous Rx's Medication Instructions Recorded furosemide 20 mg tablet 20 mg PO DAILY PRN #90 tab 05/01/19 zoledronic acid 5 mg/100 mL in See Rx Instructions .ROUTE 05/01/19 mannitol 5 %-water intravenous .COMPLEX #100 ml piggybck (Reclast) immune glob,gamma(IgG) 10 30 gm IV .COMPLEX 30 Days #3 ea 03/28/20 [id number] 0 to 50 mcg/mL IV solution (Gammagard S-D (IgA < 1 mcg/mL)) pantoprazole 40 mg tablet,delayed 40 mg PO DAILY #90 tab 11/28/20 release metoprolol succinate 25 mg 50 mg PO QAM #180 tab 09/16/21 tablet,extended release 24 hr sertraline 50 mg tablet 50 mg PO DAILY #30 tab 09/17/21 gabapentin 400 mg capsule 800 mg PO TID 30 Days #180 cap 10/30/21 amlodipine 10 mg tablet 10 mg PO QPM #90 tab 11/09/21 Results & Data (ED) Vital Signs Vital Signs - 24 hr 12/17/21 18:18 12/17/21 18:29 12/17/21 18:30 Temperature 37.3 C Temperature Source Oral Pulse Rate 88 96 H Pulse Rate from SpO2 Sensor Respiratory Rate 23 16 17 Respiratory Effort / Characteristics Respiratory Depth Blood Pressure 115/58 L Blood Pressure Mean 77 Pulse Oximetry 93 99 95 Oxygen Delivery Method Nasal Cannula Oxygen Flow Rate 2 Sepsis Recent Fever Within 48 Hours Yes Sepsis New/Unexplained Change in Mental Status Yes Sepsis Action Taken by Nursing No Action Required 12/17/21 18:34 12/17/21 18:45 12/17/21 18:49 Temperature Temperature Source Pulse Rate 88 Pulse Rate from SpO2 Sensor 87 Respiratory Rate Respiratory Effort / Characteristics Respiratory Depth Normal Normal Blood Pressure Blood Pressure Mean Pulse Oximetry 93 Oxygen Delivery Method Oxygen Flow Rate Sepsis Recent Fever Within 48 Hours Sepsis New/Unexplained Change in Mental Status Sepsis Action Taken by Nursing 12/17/21 19:00 12/17/21 19:01 12/17/21 19:04 Temperature Temperature Source Pulse Rate 87 86 Pulse Rate from SpO2 Sensor 87 Respiratory Rate 22 16 Respiratory Effort / Characteristics Non-Labored Respiratory Depth Normal Blood Pressure Blood Pressure Mean Pulse Oximetry 96 94 Oxygen Delivery Method Nasal Cannula Oxygen Flow Rate 2 Sepsis Recent Fever Within 48 Hours Sepsis New/Unexplained Change in Mental Status Sepsis Action Taken by Nursing 12/17/21 19:05 12/17/21 19:15 12/17/21 19:30 Temperature Temperature Source Pulse Rate 86 84 Pulse Rate from SpO2 Sensor 86 Respiratory Rate 24 20 Respiratory Effort / Characteristics Respiratory Depth Normal Blood Pressure 127/52 L 132/54 L Blood Pressure Mean 77 80 Pulse Oximetry 95 96 Oxygen Delivery Method Oxygen Flow Rate Sepsis Recent Fever Within 48 Hours Sepsis New/Unexplained Change in Mental Status Sepsis Action Taken by Nursing 12/17/21 19:45 12/17/21 20:00 12/17/21 20:19 Temperature Temperature Source Pulse Rate 81 93 H Pulse Rate from SpO2 Sensor Respiratory Rate 22 18 18 Respiratory Effort / Characteristics Non-Labored Respiratory Depth Blood Pressure 131/64 Blood Pressure Mean 86 Pulse Oximetry 96 98 Oxygen Delivery Method Nasal Cannula Oxygen Flow Rate 2 Sepsis Recent Fever Within 48 Hours Sepsis New/Unexplained Change in Mental Status Sepsis Action Taken by Nursing 12/17/21 20:30 12/17/21 20:45 12/17/21 21:00 Temperature Temperature Source Pulse Rate 80 76 79 Pulse Rate from SpO2 Sensor Respiratory Rate 17 16 19 Respiratory Effort / Characteristics Respiratory Depth Blood Pressure 122/61 114/61 Blood Pressure Mean 81 78 Pulse Oximetry 97 97 97 Oxygen Delivery Method Oxygen Flow Rate Sepsis Recent Fever Within 48 Hours Sepsis New/Unexplained Change in Mental Status Sepsis Action Taken by Nursing 12/17/21 21:15 12/17/21 21:30 12/17/21 21:45 Temperature Temperature Source Pulse Rate 83 85 80 Pulse Rate from SpO2 Sensor Respiratory Rate 16 20 16 Respiratory Effort / Characteristics Respiratory Depth Blood Pressure 128/89 Blood Pressure Mean 102 Pulse Oximetry 97 97 96 Oxygen Delivery Method Oxygen Flow Rate Sepsis Recent Fever Within 48 Hours Sepsis New/Unexplained Change in Mental Status Sepsis Action Taken by Nursing 12/17/21 22:00 12/17/21 22:15 12/17/21 22:30 Temperature Temperature Source Pulse Rate 81 87 77 Pulse Rate from SpO2 Sensor 86 Respiratory Rate 16 20 14 Respiratory Effort / Characteristics Respiratory Depth Blood Pressure 124/60 126/74 Blood Pressure Mean 81 91 Pulse Oximetry 97 96 95 Oxygen Delivery Method Oxygen Flow Rate Sepsis Recent Fever Within 48 Hours Sepsis New/Unexplained Change in Mental Status Sepsis Action Taken by Nursing 12/17/21 22:45 Temperature Temperature Source Pulse Rate 73 Pulse Rate from SpO2 Sensor Respiratory Rate Respiratory Effort / Characteristics Respiratory Depth Blood Pressure Blood Pressure Mean Pulse Oximetry 94 Oxygen Delivery Method Oxygen Flow Rate Sepsis Recent Fever Within 48 Hours Sepsis New/Unexplained Change in Mental Status Sepsis Action Taken by [facility] Medications Current Medication List: was personally reviewed by me Laboratory Data Attestation: I reviewed the patient's lab results. Result diagrams: 12/17/21 18:15 12/17/21 18:15 Lab Results 12/17/21 12/17/21 12/17/21 Range/Units 18:15 18:15 18:15 WBC 23.54 H (4.8-10.8) K/uL RBC 4.61 (4.2-5.4) M/uL Hgb 14.0 (12.0-16.0) g/dL Hct 41.0 (37-47) % MCV 88.9 (80-100) fL MCH 30.4 (25-34) pg MCHC 34.1 (32-36) g/dL RDW Std Deviation 46.9 H (36.4-46.3) fL RDW Coeff of Court 14.3 (11.5-14.5) % Plt Count 222 (130-400) K/uL MPV 9.3 (7.4-10.4) fL Neutrophils % (Manual) 90.6 % Lymphocytes % (Manual) 4.3 % Monocytes % (Manual) 5.1 % Neutrophils # (Manual) 21.33 H (1.4-6.5) K/uL Total Absolute Neuts 21.33 H (1.4-6.5) K/uL Lymphocytes # (Manual) 1.01 L (1.2-3.4) K/uL Total Abs Lymphocytes 1.01 L (1.2-3.4) K/uL Monocytes # (Manual) 1.20 H (0.11-0.59) K/uL PT 11.2 (9.0-12.0) Seconds INR 1.1 (0.9-1.1) APTT 25.4 (21.0-31.0) Seconds PTT Ratio 0.9 Sodium 126 L (136-145) mmol/L Potassium 3.2 L (3.5-5.1) mmol/L Chloride 94 L (98-107) mmol/L Carbon Dioxide 21 (21-32) mmol/L Anion Gap 11 (3-11) BUN 9 (6-23) mg/dl Creatinine 0.73 (0.6-1.2) mg/dl Est Cr Clr Drug Dosing Not Reportable Est GFR ( Amer) 87.7 ml/min Est GFR (Non-Af Amer) 75.6 ml/min BUN/Creatinine Ratio 12.3 (10-20) Glucose 103 H (70-99(Fasting)) mg/dl Lactate (0.4-2.0) mmol/L Calcium 9.1 (8.5-10.1) mg/dl Magnesium 1.5 L (1.7-2.4) mg/dl Total Bilirubin 4.5 H (0.2-1.0) mg/dl AST 197 H (13-39) U/L ALT 168 H (7-52) U/L Alkaline Phosphatase 175 H (34-104) U/L Troponin I High Sens 76.7 H* (0-14) pg/ml Total Protein 6.6 (6.0-8.3) gm/dl Albumin 3.4 (3.4-5.0) gm/dl Globulin 3.2 (2.5-4.0) gm/dl Albumin/Globulin Ratio 1.1 (0.9-2) Lipase (11-82) U/L Procalcitonin (0-0.5) ng/ml Urine Color Urine Appearance (Clear) Urine pH (4.5-7.5) Ur Specific [place] (1.000-1.030) Urine Protein (Negative) Urine Glucose (UA) (Negative) Urine Ketones (Negative) Urine Blood (Negative) Urine Nitrite (Negative) Urine Bilirubin (Negative) Urine Urobilinogen (Negative) Ur Leukocyte Esterase (Negative) Urine WBC (Auto) (0-5) /hpf Urine RBC (Auto) (0-4) /hpf U Hyaline Cast (Auto) (0-5) /lpf U Epithel Cells (Auto) (0-5) /lpf Urine Bacteria (Auto) (Negative) 12/17/21 12/17/21 12/17/21 Range/Units 18:15 18:15 18:23 WBC (4.8-10.8) K/uL RBC (4.2-5.4) M/uL Hgb (12.0-16.0) g/dL Hct (37-47) % MCV (80-100) fL MCH (25-34) pg MCHC (32-36) g/dL RDW Std Deviation (36.4-46.3) fL RDW Coeff of Court (11.5-14.5) % Plt Count (130-400) K/uL MPV (7.4-10.4) fL Neutrophils % (Manual) % Lymphocytes % (Manual) % Monocytes % (Manual) % Neutrophils # (Manual) (1.4-6.5) K/uL Total Absolute Neuts (1.4-6.5) K/uL Lymphocytes # (Manual) (1.2-3.4) K/uL Total Abs Lymphocytes (1.2-3.4) K/uL Monocytes # (Manual) (0.11-0.59) K/uL PT (9.0-12.0) Seconds INR (0.9-1.1) APTT (21.0-31.0) Seconds PTT Ratio Sodium (136-145) mmol/L Potassium (3.5-5.1) mmol/L Chloride (98-107) mmol/L Carbon Dioxide (21-32) mmol/L Anion Gap (3-11) BUN (6-23) mg/dl Creatinine (0.6-1.2) mg/dl Est Cr Clr Drug Dosing Est GFR ( Amer) ml/min Est GFR (Non-Af Amer) ml/min BUN/Creatinine Ratio (10-20) Glucose (70-99(Fasting)) mg/dl Lactate 2.0 (0.4-2.0) mmol/L Calcium (8.5-10.1) mg/dl Magnesium (1.7-2.4) mg/dl Total Bilirubin (0.2-1.0) mg/dl AST (13-39) U/L ALT (7-52) U/L Alkaline Phosphatase (34-104) U/L Troponin I High Sens (0-14) pg/ml Total Protein (6.0-8.3) gm/dl Albumin (3.4-5.0) gm/dl Globulin (2.5-4.0) gm/dl Albumin/Globulin Ratio (0.9-2) Lipase (11-82) U/L Procalcitonin 5.37 H (0-0.5) ng/ml Urine Color Dark Yellow Urine Appearance Clear (Clear) Urine pH 7.5 (4.5-7.5) Ur Specific [place] 1.014 (1.000-1.030) Urine Protein 1+ H (Negative) Urine Glucose (UA) Negative (Negative) Urine Ketones Negative (Negative) Urine Blood Negative (Negative) Urine Nitrite Positive A (Negative) Urine Bilirubin 2+ H (Negative) Urine Urobilinogen Negative (Negative) Ur Leukocyte Esterase Negative (Negative) Urine WBC (Auto) 1-5 (0-5) /hpf Urine RBC (Auto) 5-10 H (0-4) /hpf U Hyaline Cast (Auto) 1-5 (0-5) /lpf U Epithel Cells (Auto) 0-5 (0-5) /lpf Urine Bacteria (Auto) Negative (Negative) 12/17/21 Range/Units 19:15 WBC (4.8-10.8) K/uL RBC (4.2-5.4) M/uL Hgb (12.0-16.0) g/dL Hct (37-47) % MCV (80-100) fL MCH (25-34) pg MCHC (32-36) g/dL RDW Std Deviation (36.4-46.3) fL RDW Coeff of Court (11.5-14.5) % Plt Count (130-400) K/uL MPV (7.4-10.4) fL Neutrophils % (Manual) % Lymphocytes % (Manual) % Monocytes % (Manual) % Neutrophils # (Manual) (1.4-6.5) K/uL Total Absolute Neuts (1.4-6.5) K/uL Lymphocytes # (Manual) (1.2-3.4) K/uL Total Abs Lymphocytes (1.2-3.4) K/uL Monocytes # (Manual) (0.11-0.59) K/uL PT (9.0-12.0) Seconds INR (0.9-1.1) APTT (21.0-31.0) Seconds PTT Ratio Sodium (136-145) mmol/L Potassium (3.5-5.1) mmol/L Chloride (98-107) mmol/L Carbon Dioxide (21-32) mmol/L Anion Gap (3-11) BUN (6-23) mg/dl Creatinine (0.6-1.2) mg/dl Est Cr Clr Drug Dosing Est GFR ( Amer) ml/min Est GFR (Non-Af Amer) ml/min BUN/Creatinine Ratio (10-20) Glucose (70-99(Fasting)) mg/dl Lactate (0.4-2.0) mmol/L Calcium (8.5-10.1) mg/dl Magnesium (1.7-2.4) mg/dl Total Bilirubin (0.2-1.0) mg/dl AST (13-39) U/L ALT (7-52) U/L Alkaline Phosphatase (34-104) U/L Troponin I High Sens (0-14) pg/ml Total Protein (6.0-8.3) gm/dl Albumin (3.4-5.0) gm/dl Globulin (2.5-4.0) gm/dl Albumin/Globulin Ratio (0.9-2) Lipase 448 H (11-82) U/L Procalcitonin (0-0.5) ng/ml Urine Color Urine Appearance (Clear) Urine pH (4.5-7.5) Ur Specific [place] (1.000-1.030) Urine Protein (Negative) Urine Glucose (UA) (Negative) Urine Ketones (Negative) Urine Blood (Negative) Urine Nitrite (Negative) Urine Bilirubin (Negative) Urine Urobilinogen (Negative) Ur Leukocyte Esterase (Negative) Urine WBC (Auto) (0-5) /hpf Urine RBC (Auto) (0-4) /hpf U Hyaline Cast (Auto) (0-5) /lpf U Epithel Cells (Auto) (0-5) /lpf Urine Bacteria (Auto) (Negative) Administered Medications Discontinued Medications Sodium Chloride (Nss 1000ml) 1,000 mls @ 999 mls/hr IV .Q1H1M LEE Stop: 12/17/21 19:45 Last Infusion: 12/17/21 21:08 Dose: 0 mls/hr Documented by: [id number] Admin: 12/17/21 19:17 Dose: 999 mls/hr Documented by: [id number] Piperacillin Sod/Tazobactam Sod (Zosyn) 4.5 gm in 120 mls @ 240 mls/hr IV NOW ONE Stop: 12/17/21 19:03 Last Infusion: 12/17/21 19:48 Dose: 0 mls/hr Documented by: [id number] Admin: 12/17/21 19:16 Dose: 240 mls/hr Documented by: [id number] Magnesium Sulfate/Dextrose (Magnesium Sulfate / D5w) 1 gm in 100 mls @ 100 mls/hr IV NOW STA Stop: 12/17/21 20:39 Last Infusion: 12/17/21 21:32 Dose: 0 mls/hr Documented by: [id number] Admin: 12/17/21 20:30 Dose: 100 mls/hr Documented by: [id number] Potassium Chloride (K Madhu / Wtr) 10 meq in 100 mls @ 100 mls/hr IV ONE ONE; Protocol Stop: 12/17/21 20:39 Last Infusion: 12/17/21 21:32 Dose: 0 mls/hr Documented by: [id number] Admin: 12/17/21 20:28 Dose: 100 mls/hr Documented by: [id number] Ioversol (Optiray 320 100ml) 91 ml IV ONCE ONE Stop: 12/17/21 20:09 Last Admin: 12/17/21 20:11 Dose: 91 ml Documented by: [id number] Ondansetron HCl (Ondansetron Inj 2 Mg/Ml 2 Ml Vial) 4 mg IV NOW STA Stop: 12/17/21 19:29 Last Admin: 12/17/21 19:58 Dose: 4 mg Documented by: [id number] Imaging Data Radiologist's Impression: Chest X-Ray 12/17/21 18:34 XR chest 1V portable CLINICAL HISTORY: SEPSIS. COMPARISON STUDY: 07/02/2021 TECHNIQUE: 1 view of the chest FINDINGS: Single frontal view of the chest demonstrates the heart to be mildly enlarged and aorta to be atherosclerotic and ectatic. Permanent cardiac pacer is again seen. Chronic prominence of the lung markings is seen at the bases. The lungs are clear of alveolar opacities. There is no evidence for pleural effusion. There is no evidence for vascular congestion. There is no acute osseous pathology. IMPRESSION: 1. No acute cardiopulmonary disease. ACT 112: Negative or not required by law. Electronically signed by: Joo Roche M.D. 12/17/2021 6:56 PM Abdomen/Pelvis CT 12/17/21 18:35 CT abd pelvis IV con only CLINICAL HISTORY: ab pain, nausea/vomiting, fever COMPARISON STUDY: 04/04/2012 CT DOSE: 1392.46 mGy.cm TECHNIQUE: Standard CT of the Abdomen and Pelvis was performed with IV contrast. A dose lowering technique was utilized adhering to the principles of ALARA. Contrast Volume: Optiray 320, 91 ml. The patient did not receive oral contrast. FINDINGS: Lung base: The lung bases are clear. Abdominal cavity: There is no evidence for abdominal mass, adenopathy or ascites. Liver: There is homogeneous attenuation of the liver parenchyma. There is no evidence for enhancing mass lesion. Spleen: There is homogeneous attenuation of the splenic parenchyma. There is no enhancing mass lesion. Pancreas: There is homogeneous attenuation of the pancreatic parenchyma. There is no evidence for mass lesion or peripancreatic fluid collection. Gall Bladder: The patient is status post cholecystectomy with physiologic dilatation of common bile duct. Adrenal glands: The adrenal glands are normal in size and attenuation. There is no evidence for enhancing mass lesion. Kidneys: There is homogeneous attenuation of the renal parenchyma bilaterally. There is no evidence for renal calculus or hydronephrosis. There is no evidence for enhancing mass. There is evidence for right renal cyst. Bowel: There is a small to moderate size hiatal hernia. The bowel loops are normally placed within the abdomen and pelvis without evidence for dilatation or obstruction. There is no evidence for mass lesion. There is mild diverticulosis without evidence for diverticulitis. There are no inflammatory changes present. There is no evidence for free air. Bladder: The bladder is within normal limits with no evidence for focal mass, calculus or diverticulum. : There is no evidence for pelvic mass or adenopathy. There is no evidence for pelvic ascites. There is imaging artifact present related to left hip replacement. Vasculature: There is no evidence for aneurysmal dilatation of the abdominal aorta. Atherosclerotic calcification is present. Osseous structures: There is no acute osseous pathology. Degenerative changes are present. IMPRESSION: 1. No acute intra-abdominal or pelvic abnormality. 2. Additional nonacute findings are delineated above. ACT 112: Negative or not required by law. Electronically signed by: Joo Roche M.D. 12/17/2021 9:[address] 12/17/21 18:35 CT head/brain wo con CLINICAL HISTORY: confusion COMPARISON STUDY: 06/30/2021 CT DOSE: 884.08 mGy.cm TECHNIQUE: Standard CT of the Brain was performed without IV contrast. A dose lowering technique was utilized adhering to the principles of ALARA. FINDINGS: Extraaxial space: There is no evidence for subdural hematoma. There are no extra-axial fluid collections. Ventricles and cisterns: The ventricles are moderately dilated bilaterally. There is no evidence for midline shift or mass effect. Parenchyma: There is no subarachnoid or intraparenchymal hemorrhage. There is no evidence for an acute infarct or cerebral edema. There is mild cerebral cortical atrophy and decreased attenuation in the periventricular white matter represen ting remote small vessel disease. There are no gross mass lesions. Osseous structures: There is no evidence for an acute fracture. The visualized paranasal sinuses are clear. The mastoid air cells are clear bilaterally. Soft tissues: There is no evidence for focal soft tissue swelling. IMPRESSION: 1. No acute intracerebral pathology. 2. Atrophy and small vessel disease. ACT 112: Negative or not required by law. Electronically signed by: Joo Roche M.D. 12/17/2021 8:27 PM Discharge Plan Visit Data Chief Complaint: Altered Mental Status ED Provider: Sandip Rey Discharge Problem: Acute cholangitis, Sepsis, Nausea & vomiting, Abnormal blood electrolyte level Patient Disposition: Admitted As Inpatient Forms Stand Alone Forms: [facility] Prescriptions Prescriptions: No Action Latuda 40 mg tablet 40 mg PO QPM RF: 0 simethicone 80 mg tablet,chewable 80 mg PO DAILY PRN (Reason: Abdominal Discomfort) RF: 0 Gaviscon 80-14.2 mg tablet,chewable 1 tab PO DAILY PRN (Reason: Indigestion) RF: 0 polyethylene glycol 3350 [Miralax] 17 gram powder in packet 17 gm PO DAILY PRN (Reason: Constipation) RF: 0 cholecalciferol (vitamin D3) 5,000 unit capsule 5,000 units PO DAILY RF: 0 cyanocobalamin (vitamin B-12) 1,000 mcg capsule 1,000 mcg PO DAILY RF: 0 Gammagard S-D (IgA < 1 mcg/mL) 10 gram recon soln 30 gm IV .COMPLEX 30 Days Qty: 3 RF: 11 metoprolol succinate 25 mg tablet extended release 24 hr 50 mg PO QAM Qty: 180 RF: 1 sertraline 50 mg tablet 50 mg PO DAILY Qty: 30 RF: 2 gabapentin 400 mg capsule 800 mg PO TID 30 Days Qty: 180 RF: 5 amlodipine 10 mg tablet 10 mg PO QPM Qty: 90 RF: 1 zoledronic [id number] [Reclast] 5 mg/100 mL piggyback See Rx Instructions .ROUTE .COMPLEX Qty: 100 RF: 0 furosemide 20 mg tablet 20 mg PO DAILY PRN (Reason: edema) Qty: 90 RF: 1 bupropion HCl [Wellbutrin SR] 100 mg tablet sustained-release 12 hr 100 mg PO BID RF: 0 pantoprazole 40 mg tablet,delayed release (DR/EC) 40 mg PO DAILY Qty: 90 RF: 3 oxycodone-acetaminophen [Percocet] 5-325 mg tablet 1 tab PO BID PRN (Reason: pain) RF: 0 triamcinolone acetonide 0.1 % ointment 1 applic TOP BID PRN (Reason: Rash) RF: 0 Referrals Referrals: Janice Erickson DO [Primary Care Provider] -
[2021-12-17] MEDS ORDERED: PIPERACILLIN/TAZOBACTAM 4.5 GM/120 ML BAG IV ONE (18:34)
[2021-12-17] MEDS ORDERED: PIPERACILL/TAZOBAC CONSULT ACTIVE PRN (18:34)
[2021-12-17] MEDS ORDERED: SODIUM CHLORIDE 0.9% 1000ML 1,000 ML IV SCH (18:45)
[2021-12-17 18:56] LABS: Mean Corpuscular Hemoglobin 30.4 pg (25-34); Mean Corpuscular Hgb Conc 34.1 g/dL (32-36); Mean Corpuscular Volume 88.9 fL (80-100); Mean Platelet Volume 9.3 fL (7.4-10.4); Platelet Count 222 K/uL (130-400); RDW Coefficient of Variation 14.3 % (11.5-14.5); RDW Standard Deviation 46.9 fL (36.4-46.3); Red Blood Count 4.61 M/uL (4.2-5.4); White Blood Count 23.54 K/uL (4.8-10.8)
--- NOTE | 2021-12-17 18:57 | XRay Report ---
XR chest 1V portable CLINICAL HISTORY: SEPSIS. COMPARISON STUDY: 07/02/2021 TECHNIQUE: 1 view of the chest FINDINGS: Single frontal view of the chest demonstrates the heart to be mildly enlarged and aorta to be atheros clerotic and ectatic. Permanent cardiac pacer is again seen. Chronic prominence of the lung markings is seen at the bases. The lungs are clear of alveolar opacities. There is no evidence for pleural eff usion. There is no evidence for vascular congestion. There is no acute osseous pathology. IMPRESSION: 1. No acute cardiopulmonary disease. ACT 112: Negative or not required by law. Electronically signed by: Joo Roche M.D. 12/17/2021 6:56 PM
[2021-12-17 18:58] LABS: Appearance Urine Clear (Clear); Bacteria Urine Automated Negative (Negative); Blood Urine Negative (Negative); Color Urine Dark Yellow; Epithelial Cell Urine Auto 0-5 /lpf (0-5); Glucose Urine UA Negative (Negative); Ketones Urine Negative (Negative); Leukocyte Esterase Urine Negative (Negative); Nitrite Urine Positive (Negative); Specific Gravity Urine 1.014 (1.000-1.030); Urobilinogen Urine Negative (Negative); pH Urine 7.5 (4.5-7.5)
[2021-12-17 19:11] LABS: INR 1.1 (0.9-1.1); Partial Thromboplastin Ratio 0.9; Partial Thromboplastin Time 25.4 Seconds (21.0-31.0); Prothrombin Time 11.2 Seconds (9.0-12.0)
[2021-12-17 19:13] LABS: ALC (manual) 1.01 K/uL (1.2-3.4); ANC (manual) 21.33 K/uL (1.4-6.5); Lymphocytes # (manual) 1.01 K/uL (1.2-3.4); Lymphocytes % (manual) 4.3 %; Monocytes % (manual) 5.1 %; Neutrophils # (manual) 21.33 K/uL (1.4-6.5); Neutrophils % (manual) 90.6 %
[2021-12-17 19:18] LABS: Bilirubin Urine 2+ (Negative); Protein Urine 1+ (Negative)
[2021-12-17] MEDS ORDERED: ONDANSETRON INJ 2 MG/ML 2 ML VIAL IV STA (19:28)
[2021-12-17 19:34] LABS: Alanine Aminotransferase 168 U/L (7-52); Albumin Globulin Ratio 1.1 (0.9-2); Albumin Level 3.4 gm/dl (3.4-5.0); Alkaline Phosphatase 175 U/L (34-104); Anion Gap 11 (3-11); Aspartate Aminotransferase 197 U/L (13-39); BUN Creatinine Ratio 12.3 (10-20); Bilirubin,Total 4.5 mg/dl (0.2-1.0); Blood Urea Nitrogen 9 mg/dl (6-23); Calcium 9.1 mg/dl (8.5-10.1); Carbon Dioxide 21 mmol/L (21-32); Chloride 94 mmol/L (98-107); Est GFR (African American) 87.7 ml/min; Est GFR (Non-African American) 75.6 ml/min; Globulin 3.2 gm/dl (2.5-4.0); Glucose 103 mg/dl (70-99(Fasting)); Magnesium 1.5 mg/dl (1.7-2.4); Potassium 3.2 mmol/L (3.5-5.1); Sodium 126 mmol/L (136-145); Total Protein 6.6 gm/dl (6.0-8.3)
[2021-12-17 19:36] LABS: Troponin I High Sensitivity 76.7 pg/ml (0-14)
[2021-12-17] MEDS ORDERED: MAGNESIUM SULFATE / D5W 1 GM/100 ML BAG IV STA (19:40)
[2021-12-17] MEDS ORDERED: POTASSIUM CHLORIDE / WTR 10 MEQ/100 ML PLCT IV ONE (19:40)
[2021-12-17] MEDS ORDERED: OPTIRAY 320 100ml IV ONE (20:08)
--- NOTE | 2021-12-17 20:28 | CT Scan Report ---
CT head/brain wo con CLINICAL HISTORY: confusion COMPARISON STUDY: 06/30/2021 CT DOSE: 884.08 mGy.cm TECHNIQUE: Standard CT of the Brain was performed without IV contrast. A dose lowering technique was utilized adhering to the principles of ALARA. FINDINGS: Extraaxial space: There is no evidence for subdural hematoma. There are no extra-axial fluid collecti ons. Ventricles and cisterns: The ventricles are moderately dilated bilaterally. There is no evidence for midline shift or mass effect. Parenchyma: There is no subarachnoid or intraparenchymal hemorrhage. There is no evidence for an acut e infarct or cerebral edema. There is mild cerebral cortical atrophy and decreased attenuation in the periventricular white matter representing remote small vessel disease. There are no gross mass lesio ns. Osseous structures: There is no evidence for an acute fracture. The visualized paranasal sinuses are clear. The mastoid air cells are clear bilaterally. Soft tissues: There is no evidence for focal soft tissue swelling. IMPRESSION: 1. No acute intracerebral pathology. 2. Atrophy and small vessel disease. ACT 112: Negative or not required by law. Electronically signed by: Joo Roche M.D. 12/17/2021 8:27 PM
--- NOTE | 2021-12-17 21:02 | CT Scan Report ---
CT abd pelvis IV con only CLINICAL HISTORY: ab pain, nausea/vomiting, fever COMPARISON STUDY: 04/04/2012 CT DOSE: 1392.46 mGy.cm TECHNIQUE: Standard CT of the Abdomen and Pelvis was performed with IV contrast. A dose lowering sonali hnique was utilized adhering to the principles of ALARA. Contrast Volume: Optiray 320, 91 ml. The patient did not receive oral contrast. FINDINGS: Lung base: The lung bases are clear. Abdominal cavity: There is no evidence for abdominal mass, adenopathy or ascites. Liver: There is homogeneous attenuation of the liver parenchyma. There is no evidence for enhancing m ass lesion. Spleen: There is homogeneous attenuation of the splenic parenchyma. There is no enhancing mass lesion . Pancreas: There is homogeneous attenuation of the pancreatic parenchyma. There is no evidence for mas s lesion or peripancreatic fluid collection. Gall Bladder: The patient is status post cholecystectomy with physiologic dilatation of common bile d uct. Adrenal glands: The adrenal glands are normal in size and attenuation. There is no evidence for enhan cing mass lesion. Kidneys: There is homogeneous attenuation of the renal parenchyma bilaterally. There is no evidence f or renal calculus or hydronephrosis. There is no evidence for enhancing mass. There is evidence for r ight renal cyst. Bowel: There is a small to moderate size hiatal hernia. The bowel loops are normally placed within th e abdomen and pelvis without evidence for dilatation or obstruction. There is no evidence for mass le alberto. There is mild diverticulosis without evidence for diverticulitis. There are no inflammatory antelmo nges present. There is no evidence for free air. Bladder: The bladder is within normal limits with no evidence for focal mass, calculus or diverticulu m. : There is no evidence for pelvic mass or adenopathy. There is no evidence for pelvic ascites. Ther e is imaging artifact present related to left hip replacement. Vasculature: There is no evidence for aneurysmal dilatation of the abdominal aorta. Atherosclerotic c alcification is present. Osseous structures: There is no acute osseous pathology. Degenerative changes are present. IMPRESSION: 1. No acute intra-abdominal or pelvic abnormality. 2. Additional nonacute findings are delineated above. ACT 112: Negative or not required by law. Electronically signed by: Joo Roche M.D. 12/17/2021 9:00 PM
--- NOTE | 2021-12-17 23:09 | History & Physical Report ---
Date of Service December 17, 2021 Assessment & Plan (1) Abnormal LFTs: Plan: Abnormal LFTs/nausea and vomiting/GERD- NPO IV fluids, LR at 80 mils per hour Zosyn 4.5 g IV every 8 hours Famotidine 20 mg IV every 12 hours Zofran 4 mg IV every 6 hours as needed Gastroenterology consulted by the ED, and plans on doing an ERCP tomorrow's (2) Nausea & vomiting: Plan: See above (3) Elevated troponin I level: Plan: Elevated troponin I level/pacemaker present/hypertension/diastolic dysfunction/hypokalemia- The patient will be admitted to telemetry for serial cardiac enzymes, serial EKG's, cardiac rhythm monitoring and a 2-D echocardiogram with Dopplers. while n.p.o., hold amlodipine and furosemide as needed. Continue metoprolol succinate with hold parameters (4) Pacemaker: Plan: See above (5) HTN (hypertension): Plan: See above (6) Hyponatremia: Plan: IV fluids as noted, recheck laboratories in a.m. (7) Gastroesophageal reflux disease without esophagitis: Plan: See above (8) Chronic inflammatory demyelinating polyneuropathy: Plan: CIDP/MGUS- As outpatient on gabapentin, IVIG every 30 days, and Percocet twice daily as needed (9) Bipolar disorder: Plan: Bipolar disorder/anxiety disorder- Due to procedure tomorrow, will hold bupropion, gabapentin, lurasidone, and sertraline (10) Anxiety disorder: Plan: See above (11) B12 deficiency: Plan: Resume supplement after no longer n.p.o. (12) MGUS (monoclonal gammopathy of unknown significance): Plan: See above History of Present Illness Chief Complaint: The patient presents to the emergency department with complaint of abdominal pain, nausea, vomiting, confusion, fever, and productive cough. Primary Care Provider: Janice Erickson DO The patient is an 86-year-old female with a past medical history including hy pertension, CHF, status post pacemaker, MGUS, lumbosacral radiculopathy, pulmonary nodules, PVCs, PACs, occipital neuralgia, legally blind, gout, GERD, diastolic dysfunction, thoracic facet syndrome, anxiety disorder, bipolar disorder and opiate dependence. She presents with symptoms as noted above. Work-up in the emergency department include the following significant abnormal laboratories: WBC 23.54 with left shift, sodium 126, potassium 3.2, chloride 94, glucose 103, mag 1.5, total bilirubin 4.5, AST 197, ALT 168, alk phos 175, highly sensitive troponin troponin 76.7, lipase 448, procalcitonin 5.37. Patient was COVID-[address] scan of abdomen and pelvis: No acute findings. CT scan of head was negative for acute findings Allergies Allergy/AdvReac Type Severity Reaction Status Date / Time prednisone Allergy Severe ANAPHYLAXIS Verified 12/17/21 19:27 metronidazole Allergy Unknown RASH, FEVER Verified 12/17/21 19:27 LaMICtal TABS Allergy Mild rash Uncoded 12/17/21 19:27 Pred Forte SUSP Allergy Mild rash Uncoded 12/17/21 19:27 Flagyl TABS Allergy rash Uncoded 12/17/21 19:27 indomethacin AdvReac rash Uncoded 12/17/21 19:27 Home Medications Medication Instructions Recorded Confirmed Type Al hyd-Mg tr-alg ac-sod bicarb 80 1 tab PO DAILY PRN tab 12/19/18 12/17/21 History mg-14.2 mg chewable tablet (Gaviscon) cholecalciferol (vitamin D3) 125 5,000 units PO DAILY 12/19/18 12/17/21 History mcg (5,000 unit) capsule lurasidone 40 mg tablet (Latuda) 40 mg PO QPM 12/19/18 12/17/21 History polyethylene glycol 3350 17 gram 17 gm PO DAILY PRN 12/19/18 12/17/21 History oral powder packet (Miralax) simethicone 80 mg chewable tablet 80 mg PO DAILY PRN 12/19/18 12/17/21 History furosemide 20 mg tablet 20 mg PO DAILY PRN #90 tab 05/01/19 12/17/21 Rx zoledronic acid 5 mg/100 mL in See Rx Instructions .ROUTE 05/01/19 12/17/21 Rx mannitol 5 %-water intravenous .COMPLEX #100 ml piggybck (Reclast) cyanocobalamin (vitamin B-12) 1,000 mcg PO DAILY 10/19/19 12/17/21 History 1,000 mcg capsule bupropion HCl 100 mg tablet,12 hr 100 mg PO BID 10/31/19 12/17/21 History sustained-release (Wellbutrin SR) oxycodone-acetaminophen 5 mg-325 1 tab PO BID PRN tab 01/09/20 12/17/21 History mg tablet (Percocet) immune glob,gamma(IgG) 10 30 gm IV .COMPLEX 30 Days #3 ea 03/28/20 12/17/21 Rx fjsg-oqc-jkia-IgA 0 to 50 mcg/mL IV solution (Gammagard S-D (IgA < 1 mcg/mL)) pantoprazole 40 mg tablet,delayed 40 mg PO DAILY #90 tab 11/28/20 12/17/21 Rx release triamcinolone acetonide 0.1 % 1 applic TOP BID PRN 06/30/21 12/17/21 History topical ointment metoprolol succinate 25 mg 50 mg PO QAM #180 tab 09/16/21 12/17/21 Rx tablet,extended release 24 hr sertraline 50 mg tablet 50 mg PO DAILY #30 tab 09/17/21 12/17/21 Rx gabapentin 400 mg capsule 800 mg PO TID 30 Days #180 cap 10/30/21 12/17/21 Rx amlodipine 10 mg tablet 10 mg PO QPM #90 tab 11/09/21 12/17/21 Rx Past Med/Surg History Medical History (Updated 12/18/21 @ 00:55 by Chepe Jimenez MD) Anxiety disorder Bipolar disorder Chronic asthmatic bronchitis Chronic constipation Chronic inflammatory demyelinating polyneuropathy Depression Diastolic dysfunction Diverticulosis Essential hypertension Gastroesophageal reflux disease without esophagitis Gout Heart block Insomnia Kyphoscoliosis Legally blind Lumbosacral radiculopathy at S1 MGUS (monoclonal gammopathy of unknown significance) Multiple pulmonary nodules Multiple thyroid nodules Occipital neuralgia Opiate dependence Osteoporosis PAC (premature atrial contraction) Prediabetes Premature ventricular contractions Right bundle branch block (RBBB) Sacroiliitis Spinal stenosis of cervical region Spinal stenosis of lumbar region with radiculopathy Spondylolisthesis of lumbar region Symptomatic bradycardia Thoracic facet syndrome Tubular adenoma of colon Urinary incontinence Venous stasis dermatitis Vitamin D deficiency Surgical History H/O total knee replacement (2002) Right History of total hip arthroplasty (2008) Left Hx of cholecystectomy S/P arthroscopy of right shoulder w/ rotator cuff repair S/P cataract surgery S/P decompression of ulnar nerve at elbow (2001) b/l S/P eye surgery R eye discission of vitreous by pars plana approach Family History Mother Colon cancer Hypertension Father Acquired amyotrophic lateral sclerosis Hypertension Brother Acute pneumonitis Hypertension Sister Acute pneumonitis Hypertension Denies family history of Ovarian cancer Prostate cancer Coronary heart disease Heart disease Breast cancer Lung cancer Social History Smoking Status: Current every day smoker Tobacco Type: Cigarettes Age Started Using Tobacco: 20; Cigarettes Per Day: 3; Second Hand Exposure: Yes (son smokes outdoors with pt); Hx Alcohol Use: No Hx Substance Use: No Preferred Language: Greenlandic Communication Ability: Effective Visual Impairment: Limited Hearing Ability: Normal Rfp Writer Required: No Beliefs That Will Affect Care: Confucianism marital status: Current Living Situation: Family Current Living Situation Comment: Lives with sons. current occupational status: retired How many Children do You have: 2 How many Children do You have Comment: lost one child- 4 living Feels Safe at Home: Yes Childhood Exposure to Second-Hand Smoke: Yes caffeine: Yes during the past year weight has: increased > 10 lbs Dental Care, Regularly: Yes Physical Activity Frequency: 5-6 Times per Week Physical Activity Frequency Comment: walk Seatbelt Use: always Sunscreen Use: No Assistive Devices: Walker Review of Systems Review of Systems: The patient denies chest pain, palpitations, lower extremity swelling, sore throat, chills, sweats, blood in urine or stool, dysuria, urinary frequency or urgency, lightheadedness, dizziness, headache, loss of consciousness, rash, abnormal bruising or bleeding, imbalance, focal weakness, numbness or tingling in arms or legs, generalized arthralgias or myalgias, neck pain, or night sweats. The review of systems is otherwise negative other than for that already noted above, and at least 10 systems have been reviewed. Physical Exam Physical Exam: The patient is awake, mildly confused, normocephalic and atraumatic, lying in bed and in no acute distress. HEENT--PERRL, EOMI, mucous membranes and oropharynx dry. Neck--supple. No JVD. No bruits. Thyroid normal, trachea midline, no adenopathy. Heart--normal S1 and S2. No murmurs, rubs or gallops. Lungs--clear bilaterally, no respiratory distress, no accessory muscle use. Abdomen--normal bowel sounds and soft. Nontender. Nondistended Extremities--no cyanosis or clubbing. No edema. Dermatologic--normal skin turgor, normal color, no abnormal lymph nodes, no rash. Neurologic--cranial nerves II through XII grossly intact. Rheumatologic--normal range of motion. Psychiatric--normal affect, mildly confused Results & Data Results & Data ([facility]) Vital Signs (Past 12 Hours) Vital Signs Temp Pulse Resp BP Pulse Ox 12/17/21 22:45 73 94 12/17/21 22:30 77 14 126/74 95 12/17/21 22:15 87 20 96 12/17/21 22:00 81 16 124/60 97 12/17/21 21:45 80 16 96 12/17/21 21:30 85 20 128/89 97 12/17/21 21:15 83 16 97 12/17/21 21:00 79 19 114/61 97 12/17/21 20:45 76 16 97 12/17/21 20:30 80 17 122/61 97 12/17/21 20:19 93 H 18 12/17/21 20:00 18 98 12/17/21 19:45 81 22 131/64 96 12/17/21 19:30 84 20 132/54 L 96 12/17/21 19:15 86 24 127/52 L 95 12/17/21 19:01 86 16 94 12/17/21 19:00 87 22 96 12/17/21 18:45 88 93 12/17/21 18:30 96 H 17 95 12/17/21 18:29 37.3 C 88 16 115/58 L 99 12/17/21 18:18 23 93 Laboratory Results Laboratory Results WBC 23.54 K/uL (4.8-10.8) H 12/17/21 18:15 RBC 4.61 M/uL (4.2-5.4) 12/17/21 18:15 Hgb 14.0 g/dL (12.0-16.0) 12/17/21 18:15 Hct 41.0 % (37-47) 12/17/21 18:15 MCV 88.9 fL (80-100) 12/17/21 18:15 MCH 30.4 pg (25-34) 12/17/21 18:15 MCHC 34.1 g/dL (32-36) 12/17/21 18:15 RDW Std Deviation 46.9 fL (36.4-46.3) H 12/17/21 18:[address] 14.3 % (11.5-14.5) 12/17/21 18:15 Plt Count 222 K/uL (130-400) 12/17/21 18:15 MPV 9.3 fL (7.4-10.4) 12/17/21 18:15 Neutrophils % (Manual) 90.6 % 12/17/21 18:15 Lymphocytes % (Manual) 4.3 % 12/17/21 18:15 Monocytes % (Manual) 5.1 % 12/17/21 18:15 Neutrophils # (Manual) 21.33 K/uL (1.4-6.5) H 12/17/21 18:15 Total Absolute Neuts 21.33 K/uL (1.4-6.5) H 12/17/21 18:15 Lymphocytes # (Manual) 1.01 K/uL (1.2-3.4) L 12/17/21 18:15 Total Abs Lymphocytes 1.01 K/uL (1.2-3.4) L 12/17/21 18:15 Monocytes # (Manual) 1.20 K/uL (0.11-0.59) H 12/17/21 18:15 PT 11.2 Seconds (9.0-12.0) 12/17/21 18:15 INR 1.1 (0.9-1.1) 12/17/21 18:15 APTT 25.4 Seconds (21.0-31.0) 12/17/21 18:15 PTT Ratio 0.9 12/17/21 18:15 Sodium 126 mmol/L (136-145) L 12/17/21 18:15 Potassium 3.2 mmol/L (3.5-5.1) L 12/17/21 18:15 Chloride 94 mmol/L (98-107) L 12/17/21 18:15 Carbon Dioxide 21 mmol/L (21-32) 12/17/21 18:15 Anion Gap 11 (3-11) 12/17/21 18:15 BUN 9 mg/dl (6-23) 12/17/21 18:15 Creatinine 0.73 mg/dl (0.6-1.2) 12/17/21 18:15 Est Cr Clr Drug Dosing Not Reportable 12/17/21 18:15 Est GFR ( Amer) 87.7 ml/min 12/17/21 18:15 Est GFR (Non-Af Amer) 75.6 ml/min 12/17/21 18:15 BUN/Creatinine Ratio 12.3 (10-20) 12/17/21 18:15 Glucose 103 mg/dl (70-99(Fasting)) H 12/17/21 18:15 Lactate 2.0 mmol/L (0.4-2.0) 12/17/21 18:15 Calcium 9.1 mg/dl (8.5-10.1) 12/17/21 18:15 Magnesium 1.5 mg/dl (1.7-2.4) L 12/17/21 18:15 Total Bilirubin 4.5 mg/dl (0.2-1.0) H 12/17/21 18:15 AST 197 U/L (13-39) H 12/17/21 18:15 ALT 168 U/L (7-52) H 12/17/21 18:15 Alkaline Phosphatase 175 U/L (34-104) H 12/17/21 18:15 Troponin I High Sens 76.7 pg/ml (0-14) H* 12/17/21 18:15 Total Protein 6.6 gm/dl (6.0-8.3) 12/17/21 18:15 Albumin 3.4 gm/dl (3.4-5.0) 12/17/21 18:15 Globulin 3.2 gm/dl (2.5-4.0) 12/17/21 18:15 Albumin/Globulin Ratio 1.1 (0.9-2) 12/17/21 18:15 Lipase 448 U/L (11-82) H 12/17/21 19:15 Procalcitonin 5.37 ng/ml (0-0.5) H 12/17/21 18:15 Urine Color Dark Yellow 12/17/21 18:23 Urine Appearance Clear (Clear) 12/17/21 18:23 Urine pH 7.5 (4.5-7.5) 12/17/21 18:23 Ur Specific [place] 1.014 (1.000-1.030) 12/17/21 18:23 Urine Protein 1+ (Negative) H 12/17/21 18:23 Urine Glucose (UA) Negative (Negative) 12/17/21 18: Urine Ketones Negative (Negative) 12/17/21 18: Urine Blood Negative (Negative) 12/17/21 18: Urine Nitrite Positive (Negative) A 12/17/21 18: Urine Bilirubin 2+ (Negative) H 12/17/21 18:23 Urine Urobilinogen Negative (Negative) 12/17/21 18:23 Ur Leukocyte Esterase Negative (Negative) 12/17/21 18: Urine WBC (Auto) 1-5 /hpf (0-5) 12/17/21 18: Urine RBC (Auto) 5-10 /hpf (0-4) H 12/17/21 18: U Hyaline Cast (Auto) 1-5 /lpf (0-5) 12/17/21 18:23 U Epithel Cells (Auto) 0-5 /lpf (0-5) 12/17/21 18:23 Urine Bacteria (Auto) Negative (Negative) 12/17/21 18:23 SARS-CoV-2, RNA, NAAT NEGATIVE (NEGATIVE) 12/17/21 Unknown Impressions Chest X-Ray 12/17/21 18:34 XR chest 1V portable CLINICAL HISTORY: SEPSIS. COMPARISON STUDY: 07/02/2021 TECHNIQUE: 1 view of the chest FINDINGS: Single frontal view of the chest demonstrates the heart to be mildly enlarged and aorta to be atherosclerotic and ectatic. Permanent cardiac pacer is again seen. Chronic prominence of the lung markings is seen at the bases. The lungs are clear of alveolar opacities. There is no evidence for pleural effusion. There is no evidence for vascular congestion. There is no acute osseous pathology. IMPRESSION: 1. No acute cardiopulmonary disease. ACT 112: Negative or not required by law. Electronically signed by: Joo Roche M.D. 12/17/2021 6:56 PM Abdomen/Pelvis CT 12/17/21 18:35 CT abd pelvis IV con only CLINICAL HISTORY: ab pain, nausea/vomiting, fever COMPARISON STUDY: 04/04/2012 CT DOSE: 1392.46 mGy.cm TECHNIQUE: Standard CT of the Abdomen and Pelvis was performed with IV contrast. A dose lowering technique was utilized adhering to the principles of ALARA. Contrast Volume: Optiray 320, 91 ml. The patient did not receive oral contrast. FINDINGS: Lung base: The lung bases are clear. Abdominal cavity: There is no evidence for abdominal mass, adenopathy or ascites. Liver: There is homogeneous attenuation of the liver parenchyma. There is no evidence for enhancing mass lesion. Spleen: There is homogeneous attenuation of the splenic parenchyma. There is no enhancing mass lesion. Pancreas: There is homogeneous attenuation of the pancreatic parenchyma. There is no evidence for mass lesion or peripancreatic fluid collection. Gall Bladder: The patient is status post cholecystectomy with physiologic dilatation of common bile duct. Adrenal glands: The adrenal glands are normal in size and attenuation. There is no evidence for enhancing mass lesion. Kidneys: There is homogeneous attenuation of the renal parenchyma bilaterally. There is no evidence for renal calculus or hydronephrosis. There is no evidence for enhancing mass. There is evidence for right renal cyst. Bowel: There is a small to moderate size hiatal hernia. The bowel loops are normally placed within the abdomen and pelvis without evidence for dilatation or obstruction. There is no evidence for mass lesion. There is mild diverticulosis without evidence for diverticulitis. There are no inflammatory changes present. There is no evidence for free air. Bladder: The bladder is within normal limits with no evidence for focal mass, calculus or diverticulum. : There is no evidence for pelvic mass or adenopathy. There is no evidence for pelvic ascites. There is imaging artifact present related to left hip replacement. Vasculature: There is no evidence for aneurysmal dilatation of the abdominal aorta. Atherosclerotic calcification is present. Osseous structures: There is no acute osseous pathology. Degenerative changes are present. IMPRESSION: 1. No acute intra-abdominal or pelvic abnormality. 2. Additional nonacute findings are delineated above. ACT 112: Negative or not required by law. Electronically signed by: Joo Roche M.D. 12/17/2021 9:[address] 12/17/21 18:35 CT head/brain wo con CLINICAL HISTORY: confusion COMPARISON STUDY: 06/30/2021 CT DOSE: 884.08 mGy.cm TECHNIQUE: Standard CT of the Brain was performed without IV contrast. A dose lowering technique was utilized adhering to the principles of ALARA. FINDINGS: Extraaxial space: There is no evidence for subdural hematoma. There are no extra-axial fluid collections. Ventricles and cisterns: The ventricles are moderately dilated bilaterally. There is no evidence for midline shift or mass effect. Parenchyma: There is no subarachnoid or intraparenchymal hemorrhage. There is no evidence for an acute infarct or cerebral edema. There is mild cerebral cortical atrophy and decreased attenuation in the periventricular white matter representing remote small vessel disease. There are no gross mass lesions. Osseous structures: There is no evidence for an acute fracture. The visualized paranasal sinuses are clear. The mastoid air cells are clear bilaterally. Soft tissues: There is no evidence for focal soft tissue swelling. IMPRESSION: 1. No acute intracerebral pathology. 2. Atrophy and small vessel disease. ACT 112: Negative or not required by law. Electronically signed by: Joo Roche M.D. 12/17/2021 8:27 PM Code Status & VTE Plan Code Status DNI. Full resuscitation VTE Prophylaxis Plan VTE Prophylaxis will be ordered: Yes PG Care Time/CCT Total # of Minutes Spent Total Time Spent with Patient: Total time spent is greater than 50% in coordination of care (as documented) at patient's floor/unit and/or counseling patient: Coding Level of Care Code 63909 Initial Inpt Care Lvl 3 Diagnoses Abnormal LFTs R79.89 Nausea & vomiting R11.2 Vomiting type: unspecified Elevated troponin I level R77.8 Pacemaker Z95.0 HTN (hypertension) I10 Hyponatremia E87.1 MGUS (monoclonal gammopathy of unknown significance) D47.2 Gastroesophageal reflux disease without esophagitis K21.9 Chronic inflammatory demyelinating polyneuropathy G61.81 Bipolar disorder F31.9 Anxiety disorder F41.9 B12 deficiency E53.8 (1) Nausea & vomiting Vomiting type: unspecified Qualified Code(s): R11.2 - Nausea with vomiting, unspecified
[2021-12-18] MEDS ORDERED: ONDANSETRON INJ 2 MG/ML 2 ML VIAL IV PRN ×2 (01:07→11:00)
[2021-12-18] MEDS ORDERED: LACTATED RINGER'S 1,000 ML IV SCH (01:07)
[2021-12-18] MEDS ORDERED: PIPERACILL/TAZOBAC CONSULT ACTIVE PRN (01:07)
[2021-12-18] MEDS ORDERED: NSS + 20MEQ KCL 20 MEQ/1,000 ML BAG IV SCH (02:30)
[2021-12-18] MEDS: FAMOTIDINE 20 MG in SYRINGE 3 ML IV SCH ×2 (02:46→20:50)
[2021-12-18] MEDS: PIPERACILLIN/TAZOBACTAM 4.5 GM in DEXTROSE 5% 100 ML IV SCH ×3 (03:09→17:48)
[2021-12-18] MEDS ORDERED: SODIUM CHLORIDE 0.9% 1000ML 1,000 ML IV SCH (04:00)
[2021-12-18] MEDS: POTASSIUM CHLORIDE / WTR 10 MEQ/100 ML PLCT IV SCH ×2 (04:30→06:40)
[2021-12-18 08:40] LABS: Hematocrit (blood only) 37.4 % (37-47); Hemoglobin 12.6 g/dL (12.0-16.0); Mean Corpuscular Hgb Conc 33.7 g/dL (32-36); Mean Platelet Volume 9.2 fL (7.4-10.4); Platelet Count 228 K/uL (130-400); RDW Coefficient of Variation 14.7 % (11.5-14.5); RDW Standard Deviation 47.9 fL (36.4-46.3); White Blood Count 24.13 K/uL (4.8-10.8)
[2021-12-18] MEDS ORDERED: MICONAZOLE NITRATE POWDER 43 GM EXT PRN (08:40)
[2021-12-18 09:02] LABS: Magnesium 2.1 mg/dl (1.7-2.4)
[2021-12-18 09:06] LABS: Troponin I High Sensitivity 42.1 pg/ml (0-14)
[2021-12-18 09:10] LABS: Basophils # (auto) 0.01 K/uL (0-0.2); Eosinophils # (auto) 0.01 K/uL (0-0.5); Immature Granulocytes # (auto) 0.14 K/uL (0.00-0.02); Immature Granulocytes % (auto) 0.6 %; Lymphocytes # (auto) 2.45 K/uL (1.2-3.4); Lymphocytes % (auto) 10.2 %; Monocytes # (auto) 2.49 K/uL (0.11-0.59); Monocytes % (auto) 10.3 %; Neutrophils # (auto) 19.03 K/uL (1.4-6.5); Neutrophils % (auto) 78.9 %
[2021-12-18 09:13] LABS: Albumin Globulin Ratio 1.1 (0.9-2); Albumin Level 3.1 gm/dl (3.4-5.0); BUN Creatinine Ratio 13.6 (10-20); Bilirubin,Total 3.4 mg/dl (0.2-1.0); Calcium 8.7 mg/dl (8.5-10.1); Creatinine Clr Calc Pharmacy 82.9 ml/min; Est GFR (African American) 97.5 ml/min; Est GFR (Non-African American) 84.2 ml/min; Globulin 2.9 gm/dl (2.5-4.0); Potassium 3.9 mmol/L (3.5-5.1)
[2021-12-18] MEDS ORDERED: ACETAMINOPHEN 1,000 MG/100 ML VIAL IV PRN (09:29)
[2021-12-18] MEDS ORDERED: INDOMETHACIN 50 MG SUPP PR SCH (10:00)
--- NOTE | 2021-12-18 10:17 | XCELERA ---
[id number]
[2021-12-18] MEDS ORDERED: fentaNYL citrate 100 MCG/2 ML VIAL ONE (10:49)
[2021-12-18] MEDS ORDERED: ONDANSETRON INJ 2 MG/ML 2 ML VIAL ONE (10:50)
[2021-12-18] MEDS ORDERED: LIDOCAINE 2% 2 ML VIAL/AMP(20MG/ML) INFIL ONE (10:50)
[2021-12-18] MEDS ORDERED: PROPOFOL IV EMULSION 10 MG/ML 20 ML VIAL IV ONE (10:50)
--- NOTE | 2021-12-18 10:59 | Anesthesiology Consultation ---
Date of Service December 18, 2021 Assessment & Plan Chart Review Chart Review: Acceptable Risk for Surgery and Patient NOT seen in Pre Admission Testing Consults Requested none ASA ASA4 Proposed Anesthesia Anesthesia Type: General Risk / Benefits Reviewed With: PT / POA / Parent / Guardian, Accepts Plan and Informed Consent Obtained Additional Comments: covid test neg. History Surgery Operation Date: 12/18/21 12:40 Proposed Procedures p Endoscopic Retrograde Cholangiopancreato - Marten Cipriano, Height/Weight Height: 5 ft 5 in Weight: 99.5 kg Allergies Allergy/AdvReac Type Severity Reaction Status Date / Time prednisone Allergy Severe ANAPHYLAXIS Verified 12/17/21 19:27 metronidazole Allergy Unknown RASH, FEVER Verified 12/17/21 19:27 LaMICtal TABS Allergy Mild rash Uncoded 12/17/21 19:27 Pred Forte SUSP Allergy Mild rash Uncoded 12/17/21 19:27 Flagyl TABS Allergy rash Uncoded 12/17/21 19:27 indomethacin AdvReac rash Uncoded 12/17/21 19:27 Medications Home Medications Medication Instructions Recorded Confirmed Last Taken Al hyd-Mg tr-alg ac-sod bicarb 80 1 tab PO DAILY PRN tab 12/19/18 12/17/21 Unknown mg-14.2 mg chewable tablet (Gaviscon) cholecalciferol (vitamin D3) 125 5,000 units PO DAILY 12/19/18 12/17/21 06/30/21 mcg (5,000 unit) capsule lurasidone 40 mg tablet (Latuda) 40 mg PO QPM 12/19/18 12/17/21 06/29/21 polyethylene glycol 3350 17 gram 17 gm PO DAILY PRN 12/19/18 12/17/21 Unknown oral powder packet (Miralax) simethicone 80 mg chewable tablet 80 mg PO DAILY PRN 12/19/18 12/17/21 Unknown furosemide 20 mg tablet 20 mg PO DAILY PRN #90 tab 05/01/19 12/17/21 Unknown zoledronic acid 5 mg/100 mL in See Rx Instructions .ROUTE 05/01/19 12/17/21 Unknown mannitol 5 %-water intravenous .COMPLEX #100 ml piggybck (Reclast) cyanocobalamin (vitamin B-12) 1,000 mcg PO DAILY 10/19/19 12/17/21 06/30/21 1,000 mcg capsule bupropion HCl 100 mg tablet,12 hr 100 mg PO BID 10/31/19 12/17/21 06/30/21 sustained-release (Wellbutrin SR) oxycodone-acetaminophen 5 mg-325 1 tab PO BID PRN tab 01/09/20 12/17/21 Unknown mg tablet (Percocet) immune glob,gamma(IgG) 10 30 gm IV .COMPLEX 30 Days #3 ea 03/28/20 12/17/21 Unknown [id number] 0 to 50 mcg/mL IV solution (Gammagard S-D (IgA < 1 mcg/mL)) pantoprazole 40 mg tablet,delayed 40 mg PO DAILY #90 tab 11/28/20 12/17/21 06/30/21 release triamcinolone acetonide 0.1 % 1 applic TOP BID PRN 06/30/21 12/17/21 Unknown topical ointment metoprolol succinate 25 mg 50 mg PO QAM #180 tab 09/16/21 12/17/21 Unknown tablet,extended release 24 hr sertraline 50 mg tablet 50 mg PO DAILY #30 tab 09/17/21 12/17/21 Unknown gabapentin 400 mg capsule 800 mg PO TID 30 Days #180 cap 10/30/21 12/17/21 Unknown amlodipine 10 mg tablet 10 mg PO QPM #90 tab 11/09/21 12/17/21 Unknown Active Medications Generic Name Dose Route Start Last Admin Trade Name Freq PRN Reason Stop Dose Admin Piperacillin Sod/Tazobactam 120 mls @ 30 mls/hr 12/18/21 02:00 12/18/21 09:47 Sod 4.5 gm/ Dextrose IV 12/28/21 01:59 30 mls/hr Q8H LEE Administration Protocol Famotidine 20 mg/ Syringe 5 mls @ 2.5 mls/min 12/18/21 02:30 12/18/21 02:46 IV 01/17/22 02:29 2.5 mls/min Q12 LEE Administration Sodium Chloride 1,000 mls @ 80 mls/hr 12/18/21 04:00 12/18/21 04:21 Nss 1000ml IV 12/18/21 16:29 80 mls/hr .[id number] LEE Administration Ondansetron HCl 4 mg 12/18/21 01:07 12/18/21 09:53 Ondansetron Inj 2 Mg/Ml 2 Ml Vial IV 01/17/22 01:06 4 mg Q6H PRN Administration Nausea NPO Date Last Intake of Fluids: 12/17/21 Time Last Intake of Fluids: 23:00 Date Last Intake of Solids: 12/17/21 Time Last Intake of Solids: 13:00 Past Medical History Medical History Anxiety disorder Bipolar disorder Chronic asthmatic bronchitis Chronic constipation Chronic inflammatory demyelinating polyneuropathy Depression Diastolic dysfunction Diverticulosis Essential hypertension Gastroesophageal reflux disease without esophagitis Gout Heart block Insomnia Kyphoscoliosis Legally blind Lumbosacral radiculopathy at S1 MGUS (monoclonal gammopathy of unknown significance) Multiple pulmonary nodules Multiple thyroid nodules Occipital neuralgia Opiate dependence Osteoporosis PAC (premature atrial contraction) Prediabetes Premature ventricular contractions Right bundle branch block (RBBB) Sacroiliitis Spinal stenosis of cervical region Spinal stenosis of lumbar region with radiculopathy Spondylolisthesis of lumbar region Symptomatic bradycardia Thoracic facet syndrome Tubular adenoma of colon Urinary incontinence Venous stasis dermatitis Vitamin D deficiency Exercise / Class Metabolic Activity III < 4 Walking/Shop/Light housework Past Family History Family History Mother Colon cancer Hypertension Father Acquired amyotrophic lateral sclerosis Hypertension Brother Acute pneumonitis Hypertension Sister Acute pneumonitis Hypertension Denies family history of Ovarian cancer Prostate cancer Coronary heart disease Heart disease Breast cancer Lung cancer Past Surgical History Surgical History H/O total knee replacement (2002) Right History of total hip arthroplasty (2008) Left Hx of cholecystectomy S/P arthroscopy of right shoulder w/ rotator cuff repair S/P cataract surgery S/P decompression of ulnar nerve at elbow (2001) b/l S/P eye surgery R eye discission of vitreous by pars plana approach Past Anesthesia History No Hx of Anesthesia Complications and No Family Hx of Anesthesia Complications History of PONV No Hx of PONV and No Hx of Motion Sickness Social History Smoking Status: Light tobacco smoker tobacco type: cigarettes Smoking cigarettes per day: 3 Do You Dip or Chew Tobacco: No Hx Alcohol Use: No Hx Substance Use: No substance use type: does not use Physical Exam Vital Signs Last Vital Signs Temp 36.7 C 12/18/21 10:34 Pulse 77 12/18/21 10:34 Resp 20 12/18/21 10:34 BP 170/81 H 12/18/21 08:02 Pulse Ox 94 12/18/21 10:34 Constitutional + obese ENMT Mouth: + dentition abnormality and + poor dentition Thyromental Distance: < 3.5 Finger Breadths Mallampati Class: II Neck normal visual inspection and trachea midline; neck extension not limited Respiratory normal respiratory effort Auscultation: lungs clear to auscultation bilaterally and + diminished lung sounds Cardiovascular Rate/Rhythm: regular rate and regular rhythm Heart Sounds: no murmur Vessels: no carotid bruit Chest (Breasts) Chest: + pacemaker (left subclav.) Musculoskeletal Spine: normal cervical ROM Extremities: extremities normal to inspection Neurologic moves all extremities Motor/Sensory: no sensory deficit Psychiatric Orientation: alert and oriented x 3 Testing Laboratory Results 12/18/21 08:19 12/18/21 08:19 PT 11.2 Seconds (9.0-12.0) 12/17/21 18:15 INR 1.1 (0.9-1.1) 12/17/21 18:15 APTT 25.4 Seconds (21.0-31.0) 12/17/21 18:15 Urine Color Dark Yellow 12/17/21 18:23 Urine Appearance Clear (Clear) 12/17/21 18:23 Urine pH 7.5 (4.5-7.5) 12/17/21 18:23 Ur Specific [place] 1.014 (1.000-1.030) 12/17/21 18:23 Urine Protein 1+ (Negative) H 12/17/21 18:23 Urine Glucose (UA) Negative (Negative) 12/17/21 18:23 Urine Ketones Negative (Negative) 12/17/21 18:23 Urine Nitrite Positive (Negative) A 12/17/21 18:23 Ur Leukocyte Esterase Negative (Negative) 12/17/21 18:23 Urine WBC (Auto) 1-5 /hpf (0-5) 12/17/21 18:23 Urine RBC (Auto) 5-10 /hpf (0-4) H 12/17/21 18:23 U Hyaline Cast (Auto) 1-5 /lpf (0-5) 12/17/21 18:23 U Epithel Cells (Auto) 0-5 /lpf (0-5) 12/17/21 18:23 Urine Bacteria (Auto) Negative (Negative) 12/17/21 18:23 Chest X-Ray Date: 12/17/21 Findings: + NAD, + cardiomegaly and + atherosclerosis of thoracic aorta Echocardiogram Date: 12/18/21 EF: 60% LV Function: normal RWMA: + none Other Findings: + LVH and + diastolic dysfunction Valvular Disease: + MR (mild) mild TR
--- NOTE | 2021-12-18 10:59 | Gastrointestinal Consultation ---
Date of Consultation December 18, 2021 Assessment & Plan (1) Acute cholangitis: Patient has signs and symptoms most consistent with acute cholangitis. Given the patient's elevated leukocytosis and bilirubin and liver enzymes I proceed with urgent biliary decompression this morning. I discussed the risks and benefits with the patient to include bleeding, infection, perforation, pain, pancreatitis and need for follow-up studies. ERCP today History of Present Illness Reason for Consultation: cholangitis Attending Physician: Pedro Dominguez MD History of Present Illness The patient is an 86-year-old female in the emergency room for evaluation of chills. She was found to have a significant elevation of her liver associated enzymes and leukocytosis. Overnight the patient notes that her nausea has improved slightly however. But blood cell count continues to rise. She does recall having remote history of a cholecystectomy performed many many years she admits to having fevers and possible chills at home. Allergies Allergy/AdvReac Type Severity Reaction Status Date / Time prednisone Allergy Severe ANAPHYLAXIS Verified 12/17/21 19:27 metronidazole Allergy Unknown RASH, FEVER Verified 12/17/21 19:27 LaMICtal TABS Allergy Mild rash Uncoded 12/17/21 19:27 Pred Forte SUSP Allergy Mild rash Uncoded 12/17/21 19:27 Flagyl TABS Allergy rash Uncoded 12/17/21 19:27 indomethacin AdvReac rash Uncoded 12/17/21 19:27 Home Medications Medication Instructions Recorded Confirmed Type Al hyd-Mg tr-alg ac-sod bicarb 80 1 tab PO DAILY PRN tab 12/19/18 12/17/21 History mg-14.2 mg chewable tablet (Gaviscon) cholecalciferol (vitamin D3) 125 5,000 units PO DAILY 12/19/18 12/17/21 History mcg (5,000 unit) capsule lurasidone 40 mg tablet (Latuda) 40 mg PO QPM 12/19/18 12/17/21 History polyethylene glycol 3350 17 gram 17 gm PO DAILY PRN 12/19/18 12/17/21 History oral powder packet (Miralax) simethicone 80 mg chewable tablet 80 mg PO DAILY PRN 12/19/18 12/17/21 History furosemide 20 mg tablet 20 mg PO DAILY PRN #90 tab 05/01/19 12/17/21 Rx zoledronic acid 5 mg/100 mL in See Rx Instructions .ROUTE 09/10/19 04/28/22 Rx mannitol 5 %-water intravenous .COMPLEX #100 ml piggybck (Reclast) cyanocobalamin (vitamin B-12) 1,000 mcg PO DAILY 10/19/19 12/17/21 History 1,000 mcg capsule bupropion HCl 100 mg tablet,12 hr 100 mg PO BID 10/31/19 12/17/21 History sustained-release (Wellbutrin SR) oxycodone-acetaminophen 5 mg-325 1 tab PO BID PRN tab 01/09/20 12/17/21 History mg tablet (Percocet) immune glob,gamma(IgG) 10 30 gm IV .COMPLEX 30 Days #3 ea 03/28/20 12/17/21 Rx mwlw-xjm-pjfe-IgA 0 to 50 mcg/mL IV solution (Gammagard S-D (IgA < 1 mcg/mL)) pantoprazole 40 mg tablet,delayed 40 mg PO DAILY #90 tab 11/28/20 12/17/21 Rx release triamcinolone acetonide 0.1 % 1 applic TOP BID PRN 06/30/21 12/17/21 History topical ointment metoprolol succinate 25 mg 50 mg PO QAM #180 tab 09/16/21 12/17/21 Rx tablet,extended release 24 hr sertraline 50 mg tablet 50 mg PO DAILY #30 tab 09/17/21 12/17/21 Rx gabapentin 400 mg capsule 800 mg PO TID 30 Days #180 cap 10/30/21 12/17/21 Rx amlodipine 10 mg tablet 10 mg PO QPM #90 tab 11/09/21 12/17/21 Rx Patient History Medical History (Updated 12/18/21 @ 00:55 by Chepe Jimenez MD) Anxiety disorder Bipolar disorder Chronic asthmatic bronchitis Chronic constipation Chronic inflammatory demyelinating polyneuropathy Depression Diastolic dysfunction Diverticulosis Essential hypertension Gastroesophageal reflux disease without esophagitis Gout Heart block Insomnia Kyphoscoliosis Legally blind Lumbosacral radiculopathy at S1 MGUS (monoclonal gammopathy of unknown significance) Multiple pulmonary nodules Multiple thyroid nodules Occipital neuralgia Opiate dependence Osteoporosis PAC (premature atrial contraction) Prediabetes Premature ventricular contractions Right bundle branch block (RBBB) Sacroiliitis Spinal stenosis of cervical region Spinal stenosis of lumbar region with radiculopathy Spondylolisthesis of lumbar region Symptomatic bradycardia Thoracic facet syndrome Tubular adenoma of colon Urinary incontinence Venous stasis dermatitis Vitamin D deficiency Surgical History H/O total knee replacement (2002) Right History of total hip arthroplasty (2008) Left Hx of cholecystectomy S/P arthroscopy of right shoulder w/ rotator cuff repair S/P cataract surgery S/P decompression of ulnar nerve at elbow (2001) b/l S/P eye surgery R eye discission of vitreous by pars plana approach Family History Mother Colon cancer Hypertension Father Acquired amyotrophic lateral sclerosis Hypertension Brother Acute pneumonitis Hypertension Sister Acute pneumonitis Hypertension Denies family history of Ovarian cancer Prostate cancer Coronary heart disease Heart disease Breast cancer Lung cancer Social History Smoking Status: Light tobacco smoker Tobacco Type: Cigarettes Age Started Using Tobacco: 20; Cigarettes Per Day: 3; Second Hand Exposure: Yes (son smokes outdoors with pt); Hx Alcohol Use: No Hx Substance Use: No Preferred Language: Bol[place]ian Communication Ability: Effective Visual Impairment: Limited Hearing Ability: Normal Data Developer Required: No Beliefs That Will Affect Care: Zoroastrianism marital status: Current Living Situation: Family Current Living Situation Comment: Adult son lives with pt. current occupational status: retired How many Children do You have: 2 How many Children do You have Comment: lost one child- 4 living Feels Safe at Home: Yes Childhood Exposure to Second-Hand Smoke: Yes caffeine: Yes during the past year weight has: increased > 10 lbs Dental Care, Regularly: Yes Physical Activity Frequency: 5-6 Times per Week Physical Activity Frequency Comment: walk Seatbelt Use: always Sunscreen Use: No Assistive Devices: Glasses and Walker Review of Systems Constitutional: + fever, + chills, + fatigue, + malaise and + weakness; no sweats and no weight loss Eyes: no diplopia Respiratory: no cough, no dyspnea and no hemoptysis Cardiovascular: no chest pain, no chest pain with activity and no dyspnea at rest Gastrointestinal: + abdominal pain, + nausea and + vomiting; no belching Genitourinary: no dysuria and no urinary frequency Musculoskeletal: no back pain and no radicular pain Integumentary: no rash Neurologic: no falls Psychiatric: no behavioral changes, no hopelessness and no anhedonia Endocrine: + fatigue; no polydipsia Hematologic / Lymphatic: no easy bleeding and no coagulopathy Allergy / Immunological: no lip swelling and no tongue swelling Physical Exam Constitutional: WD/WN, vitals as above Eyes: PERRL, conjunctivae normal, anicteric sclerae ENMT: Mallampati Class: II Respiratory: Auscultation: no crackles and no wheezes Cardiovascular: Heart Sounds: + murmur Gastrointestinal (Abdomen): Inspection/Auscultation: abdomen not distended Percussion/Palpation: + abdomen tender and abdomen soft; no guarding and abdomen not rigid Results & Data ([facility]) Vital Signs (Past 12 Hours) Vital Signs Temp Pulse Pulse Resp BP BP BP 12/18/21 10:34 36.7 C 77 20 12/18/21 08:02 37 C 74 18 170/81 H 12/18/21 03:35 36.7 C 75 18 142/67 H 12/18/21 01:08 36.8 C 69 18 118/66 12/18/21 00:11 69 18 133/70 Pulse Ox 12/18/21 10:34 94 12/18/21 08:02 93 12/18/21 03:35 95 12/18/21 01:08 93 12/18/21 00:11 92 Laboratory Results Laboratory Results - last 24 hr 12/17/21 12/17/21 12/17/21 18:15 18:15 18:15 WBC 23.54 H RBC 4.61 Hgb 14.0 Hct 41.0 MCV 88.9 MCH 30.4 MCHC 34.1 RDW Std Deviation 46.[address] 14.3 Plt Count 222 MPV 9.3 Immature Gran % (Auto) Neut % (Auto) Lymph % (Auto) [place] % (Auto) Eos % (Auto) Baso % (Auto) Neut # (Auto) Lymph # (Auto) [place] # (Auto) Eos # (Auto) Baso # (Auto) Immature Gran # (Auto) Neutrophils % (Manual) 90.6 Lymphocytes % (Manual) 4.3 Monocytes % (Manual) 5.1 Neutrophils # (Manual) 21.33 H Total Absolute Neuts 21.33 H Lymphocytes # (Manual) 1.01 L Total Abs Lymphocytes 1.01 L Monocytes # (Manual) 1.20 H PT 11.2 INR 1.1 APTT 25.4 PTT Ratio 0.9 Sodium 126 L Potassium 3.2 L Chloride 94 L Carbon Dioxide 21 Anion Gap 11 BUN 9 Creatinine 0.73 Est Cr Clr Drug Dosing Not Reportable Est GFR ( Amer) 87.7 Est GFR (Non-Af Amer) 75.6 BUN/Creatinine Ratio 12.3 Glucose 103 H Lactate Calcium 9.1 Magnesium 1.5 L Total Bilirubin 4.5 H AST 197 H ALT 168 H Alkaline Phosphatase 175 H Troponin I High Sens 76.7 H* Total Protein 6.6 Albumin 3.4 Globulin 3.2 Albumin/Globulin Ratio 1.1 Lipase Procalcitonin Urine Color Urine Appearance Urine pH Ur Specific [place] Urine Protein Urine Glucose (UA) Urine Ketones Urine Blood Urine Nitrite Urine Bilirubin Urine Urobilinogen Ur Leukocyte Esterase Urine WBC (Auto) Urine RBC (Auto) U Hyaline Cast (Auto) U Epithel Cells (Auto) Urine Bacteria (Auto) SARS-CoV-2, RNA, NAAT 12/17/21 12/17/21 12/17/21 18:15 18:15 18:23 WBC RBC Hgb Hct MCV MCH MCHC RDW Std Deviation RDW Coeff of Court Plt Count MPV Immature Gran % (Auto) Neut % (Auto) Lymph % (Auto) [place] % (Auto) Eos % (Auto) Baso % (Auto) Neut # (Auto) Lymph # (Auto) [place] # (Auto) Eos # (Auto) Baso # (Auto) Immature Gran # (Auto) Neutrophils % (Manual) Lymphocytes % (Manual) Monocytes % (Manual) Neutrophils # (Manual) Total Absolute Neuts Lymphocytes # (Manual) Total Abs Lymphocytes Monocytes # (Manual) PT INR APTT PTT Ratio Sodium Potassium Chloride Carbon Dioxide Anion Gap BUN Creatinine Est Cr Clr Drug Dosing Est GFR ( Amer) Est GFR (Non-Af Amer) BUN/Creatinine Ratio Glucose Lactate 2.0 Calcium Magnesium Total Bilirubin AST ALT Alkaline Phosphatase Troponin I High Sens Total Protein Albumin Globulin Albumin/Globulin Ratio Lipase Procalcitonin 5.37 H Urine Color Dark Yellow Urine Appearance Clear Urine pH 7.5 Ur Specific [place] 1.014 Urine Protein 1+ H Urine Glucose (UA) Negative Urine Ketones Negative Urine Blood Negative Urine Nitrite Positive A Urine Bilirubin 2+ H Urine Urobilinogen Negative Ur Leukocyte Esterase Negative Urine WBC (Auto) 1-5 Urine RBC (Auto) 5-10 H U Hyaline Cast (Auto) 1-5 U Epithel Cells (Auto) 0-5 Urine Bacteria (Auto) Negative SARS-CoV-2, RNA, NAAT 12/17/21 12/17/21 12/18/21 19:15 Unknown 08:19 WBC 24.13 H RBC 4.20 Hgb 12.6 Hct 37.4 MCV 89.0 MCH 30.0 MCHC 33.7 RDW Std Deviation 47.[address] 14.7 H Plt Count 228 MPV 9.2 Immature Gran % (Auto) 0.6 Neut % (Auto) 78.9 Lymph % (Auto) 10.2 [place] % (Auto) 10.3 Eos % (Auto) 0.0 Baso % (Auto) 0.0 Neut # (Auto) 19.03 H Lymph # (Auto) 2.45 [place] # (Auto) 2.49 H Eos # (Auto) 0.01 Baso # (Auto) 0.01 Immature Gran # (Auto) 0.14 H Neutrophils % (Manual) Lymphocytes % (Manual) Monocytes % (Manual) Neutrophils # (Manual) Total Absolute Neuts Lymphocytes # (Manual) Total Abs Lymphocytes Monocytes # (Manual) PT INR APTT PTT Ratio Sodium Potassium Chloride Carbon Dioxide Anion Gap BUN Creatinine Est Cr Clr Drug Dosing Est GFR ( Amer) Est GFR (Non-Af Amer) BUN/Creatinine Ratio Glucose Lactate Calcium Magnesium Total Bilirubin AST ALT Alkaline Phosphatase Troponin I High Sens Total Protein Albumin Globulin Albumin/Globulin Ratio Lipase 448 H Procalcitonin Urine Color Urine Appearance Urine pH Ur Specific [place] Urine Protein Urine Glucose (UA) Urine Ketones Urine Blood Urine Nitrite Urine Bilirubin Urine Urobilinogen Ur Leukocyte Esterase Urine WBC (Auto) Urine RBC (Auto) U Hyaline Cast (Auto) U Epithel Cells (Auto) Urine Bacteria (Auto) SARS-CoV-2, RNA, NAAT NEGATIVE 12/18/21 12/18/21 08:19 08:19 WBC RBC Hgb Hct MCV MCH MCHC RDW Std Deviation RDW Coeff of Court Plt Count MPV Immature Gran % (Auto) Neut % (Auto) Lymph % (Auto) [place] % (Auto) Eos % (Auto) Baso % (Auto) Neut # (Auto) Lymph # (Auto) [place] # (Auto) Eos # (Auto) Baso # (Auto) Immature Gran # (Auto) Neutrophils % (Manual) Lymphocytes % (Manual) Monocytes % (Manual) Neutrophils # (Manual) Total Absolute Neuts Lymphocytes # (Manual) Total Abs Lymphocytes Monocytes # (Manual) PT INR APTT PTT Ratio Sodium 132 L Potassium 3.9 D Chloride 101 Carbon Dioxide 24 Anion Gap 7 BUN 8 Creatinine 0.59 L Est Cr Clr Drug Dosing 82.9 Est GFR ( Amer) 97.5 Est GFR (Non-Af Amer) 84.2 BUN/Creatinine Ratio 13.6 Glucose 114 H Lactate Calcium 8.7 Magnesium 2.1 Total Bilirubin 3.4 H AST 121 H ALT 126 H Alkaline Phosphatase 138 H Troponin I High Sens 42.1 H D Total Protein 6.0 Albumin 3.1 L Globulin 2.9 Albumin/Globulin Ratio 1.1 Lipase 48 Procalcitonin Urine Color Urine Appearance Urine pH Ur Specific [place] Urine Protein Urine Glucose (UA) Urine Ketones Urine Blood Urine Nitrite Urine Bilirubin Urine Urobilinogen Ur Leukocyte Esterase Urine WBC (Auto) Urine RBC (Auto) U Hyaline Cast (Auto) U Epithel Cells (Auto) Urine Bacteria (Auto) SARS-CoV-2, RNA, NAAT Diagnostic Findings CT abd pelvis IV con only CLINICAL HISTORY: ab pain, nausea/vomiting, fever COMPARISON STUDY: 04/04/2012 CT DOSE: 1392.46 mGy.cm TECHNIQUE: Standard CT of the Abdomen and Pelvis was performed with IV contrast. A dose lowering technique was utilized adhering to the principles of ALARA. Contrast Volume: Optiray 320, 91 ml. The patient did not receive oral contrast. FINDINGS: Lung base: The lung bases are clear. Abdominal cavity: There is no evidence for abdominal mass, adenopathy or ascites. Liver: There is homogeneous attenuation of the liver parenchyma. There is no evidence for enhancing mass lesion. Spleen: There is homogeneous attenuation of the splenic parenchyma. There is no enhancing mass lesion. Pancreas: There is homogeneous attenuation of the pancreatic parenchyma. There is no evidence for mass lesion or peripancreatic fluid collection. Gall Bladder: The patient is status post cholecystectomy with physiologic dilatation of common bile duct. Adrenal glands: The adrenal glands are normal in size and attenuation. There is no evidence for enhancing mass lesion. Kidneys: There is homogeneous attenuation of the renal parenchyma bilaterally. There is no evidence for renal calculus or hydronephrosis. There is no evidence for enhancing mass. There is evidence for right renal cyst. Bowel: There is a small to moderate size hiatal hernia. The bowel loops are normally placed within the abdomen and pelvis without evidence for dilatation or obstruction. There is no evidence for mass lesion. There is mild diverticulosis without evidence for diverticulitis. There are no inflammatory changes present. There is no evidence for free air. Bladder: The bladder is within normal limits with no evidence for focal mass, calculus or diverticulum. : There is no evidence for pelvic mass or adenopathy. There is no evidence for pelvic ascites. There is imaging artifact present related to left hip replacement. Vasculature: There is no evidence for aneurysmal dilatation of the abdominal aorta. Atherosclerotic calcification is present. Osseous structures: There is no acute osseous pathology. Degenerative changes are present. IMPRESSION: 1. No acute intra-abdominal or pelvic abnormality. 2. Additional nonacute findings are delineated above.
[2021-12-18] MEDS ORDERED: fentaNYL citrate 100 MCG/2 ML VIAL IV PRN (11:00)
[2021-12-18] MEDS ORDERED: FLUMAZENIL 0.1 MG/1 ML 10 ML VIAL IV PRN (11:00)
[2021-12-18] MEDS ORDERED: ePHEDrine sulfate 50 MG/ML AMP IV PRN (11:00)
[2021-12-18] MEDS ORDERED: ATROPINE SULFATE 0.1 MG/ML 10ML SYR IV PRN (11:00)
[2021-12-18] MEDS ORDERED: PROMETHAZINE HCL 12.5 MG in SODIUM CHLORIDE 0.9% 50 ML IV PRN (11:00)
[2021-12-18] MEDS ORDERED: LABETALOL HCL IV 5 MG/ML 20ML IV PRN (11:00)
[2021-12-18] MEDS ORDERED: NALOXONE HCL 0.4 MG/1 ML VIAL/CARP IV PRN (11:00)
--- NOTE | 2021-12-18 11:00 | Communication Note ---
Date of Service: December 18, 2021 12/18/2021-EKG-A sensed,V paced rhythm @ 64
--- NOTE | 2021-12-18 11:00 | History & Physical Bridge Note ---
Date of Service December 18, 2021 History & Physical Bridge Note I have examined the patient, reviewed the History & Physical and in the interval since the performance of the History & Physical I have noted the following changes of clinical significance: no changes noted. Patient for urgent ERCP today we have discussed the risks to include bleeding, infection, perforation, pain and failed biliary cannulation.
--- NOTE | 2021-12-18 11:46 | Post Operative Brief Note ---
Immediate Post Op Note v1 Date of Surgery December 18, 2021 Pre & Post Diagnosis Operation Date: 12/18/21 12:40 Pre-Op Diagnosis: CHOLELITHIASIS Post-Op Diagnosis: CHOLELITHIASIS, CHOLINGITIS I identified the patient and participated in the time-out.: Yes Procedure Operation Date: 12/18/21 12:40 Actual Procedures p Endoscopic Retrograde Cholangiopancreato - Maribell Cota DO Surgeon Maribell Cota DO Fermenter Helper none Estimated Blood Loss 0 Findings Consistent with Post-Op Diagnosis
--- NOTE | 2021-12-18 11:52 | GI REPORT ---
Patient Name: Shira Patel Procedure Date: 12/18/2021 11:14 AM Date of : 1935 Admit Type: Inpatient Age: 86 Gender: Female Attending MD: Maribell Cota DO Procedure: ERCP Providers: Maribell Cota DO Referring MD: Pedro Dominguez Md Indications: Abdominal pain of suspected biliary origin, Suspected ascending cholangitis Medicines: Monitored Anesthesia Care Complications: No immediate complications. Estimated blood loss: Minimal. Estimated Blood Loss: Estimated blood loss was minimal. Procedure: Pre-Anesthesia Assessment: - Prior to the procedure, a History and Physical was performed, and patient medications, allergies and sensitivities were reviewed. The patient's tolerance of previous anesthesia was reviewed. - The risks and benefits of the procedure and the sedation options and risks were discussed with the patient. All questions were answered and informed consent was obtained. - Patient identification and proposed procedure were verified prior to the procedure by the physician, the nurse and the esol teacher. The procedure was verified in the procedure room. - Pre-procedure physical examination revealed no contraindications to sedation. - ASA Grade Assessment: IV - A patient with severe systemic disease that is a constant threat to life. - After reviewing the risks and benefits, the patient was deemed in satisfactory condition to undergo the procedure. - The anesthesia plan was to use general anesthesia. - Immediately prior to administration of medications, the patient was re-assessed for adequacy to receive sedatives. - The heart rate, respiratory rate, oxygen saturations, blood pressure, adequacy of pulmonary ventilation, and response to care were monitored throughout the procedure. - The physical status of the patient was re-assessed after the procedure. After obtaining informed consent, the scope was passed under direct vision. Throughout the procedure, the patient's blood pressure, pulse, and oxygen saturations were monitored continuously. The Duodenoscope was introduced through the mouth, and advanced to the duodenum and used to cannulate the bile duct. The ERCP was accomplished without difficulty. The patient tolerated the procedure well. Findings: The maintenance technician film was normal. The esophagus was successfully intubated under direct vision without detailed examination of the pharynx, larynx, and associated structures, and upper GI tract. The upper GI tract was grossly normal. The major papilla was edematous. The bile duct was deeply cannulated. Contrast was injected. I personally interpreted the bile duct images. Contrast extended to the entire biliary tree. The biliary orifice was stenotic. This appeared benign. The lower third of the main bile duct and middle third of the main bile duct contained filling defect(s) thought to be a stone and sludge. The upper third of the main bile duct was moderately dilated. The largest diameter was 10 mm. Biliary sphincterotomy was made with a monofilament Fusion OMNI sphincterotome. There was no post-sphincterotomy bleeding. To discover objects, the biliary tree was swept with an 11.5 mm balloon and 15 mm balloon starting at the bifurcation. Sludge was swept from the duct. A few stones were removed. No stones remained. Pus was swept from the duct. One 10 Fr by 7 cm biliary stent with a single external flap and a single internal flap was placed 7 cm into the common bile duct. Bile flowed through the stent. The stent was in good position. The endoscope was withdrawn from the patient. The total fluoroscopy exposure time was 1 minute and 54 seconds. Impression: - The major papilla appeared edematous. - Biliary papillary stenosis, benign. - Choledocholithiasis was found. Complete removal was accomplished by biliary sphincterotomy and balloon extraction. - The biliary tree was swept and pus was found. - One biliary stent was placed into the common bile duct. Recommendation: - Avoid aspirin and nonsteroidal anti-inflammatory medicines for 1 week. - Clear liquid diet. - Use broad spectrum antibiotics for 10 days. - Repeat ERCP in 6 weeks to remove stent. Maribell Cota D.O. Maribell Cota, 12/18/2021 11:52:17 AM This report has been signed electronically. Note Initiated On: 12/18/2021 11:14 AM Number of Addenda: 0 I attest to the content of the Intraoperative Record and orders documented therein, exceptions below {[id number]}
--- NOTE | 2021-12-18 11:58 | Electrocardiogram Report ---
Test Reason : Blood Pressure : / mmHG Vent. Rate : 106 BPM Atrial Rate : 106 BPM P-R Int : 148 ms QRS Dur : 150 ms QT Int : 396 ms P-R-T Axes : 060 112 068 degrees QTc Int : 526 ms Atrial-sensed ventricular-paced rhythm Abnormal ECG When compared with ECG of 02-JUL-2021 13:20, Vent. rate has increased BY 37 BPM Confirmed by Pawan Pino ([id number]) on 12/18/2021 11:58:17 AM Referred By: REFERRED SELF Confirmed By:Pawan Pion
--- NOTE | 2021-12-18 12:34 | Anesthesiology Progress Note ---
Date of Service December 18, 2021 Anesthesia Post Procedure Vital Signs Vital Signs: Temp Pulse Pulse Pulse Resp BP BP 12/18/21 12:25 37.1 C 74 15 12/18/21 12:15 77 19 12/18/21 12:05 76 19 12/18/21 11:55 79 17 12/18/21 11:48 36.6 C 81 20 12/18/21 10:34 36.7 C 77 20 12/18/21 08:02 37 C 74 18 170/81 H 12/18/21 03:35 36.7 C 75 18 142/67 H 12/18/21 01:08 36.8 C 69 18 12/18/21 00:11 69 18 133/70 12/17/21 22:45 73 12/17/21 22:30 77 14 126/74 12/17/21 22:15 87 20 12/17/21 22:00 81 16 124/60 12/17/21 21:45 80 16 12/17/21 21:30 85 20 128/89 12/17/21 21:15 83 16 12/17/21 21:00 79 19 114/61 12/17/21 20:45 76 16 12/17/21 20:30 80 17 122/61 12/17/21 20:19 93 H 18 12/17/21 20:00 18 12/17/21 19:45 81 22 131/64 12/17/21 19:30 84 20 132/54 L 12/17/21 19:15 86 24 127/52 L 12/17/21 19:01 86 16 12/17/21 19:00 87 22 12/17/21 18:45 88 12/17/21 18:30 96 H 17 12/17/21 18:29 37.3 C 88 16 115/58 L 12/17/21 18:18 23 BP Pulse Ox 12/18/21 12:25 140/68 94 12/18/21 12:15 117/54 L 95 12/18/21 12:05 113/73 94 12/18/21 11:55 105/53 L 94 12/18/21 11:48 115/55 L 92 12/18/21 10:34 94 12/18/21 08:02 93 12/18/21 03:35 95 12/18/21 01:08 118/66 93 12/18/21 00:11 92 12/17/21 22:45 94 12/17/21 22:30 95 12/17/21 22:15 96 12/17/21 22:00 97 12/17/21 21:45 96 12/17/21 21:30 97 12/17/21 21:15 97 12/17/21 21:00 97 12/17/21 20:45 97 12/17/21 20:30 97 12/17/21 20:19 12/17/21 20:00 98 12/17/21 19:45 96 12/17/21 19:30 96 12/17/21 19:15 95 12/17/21 19:01 94 12/17/21 19:00 96 12/17/21 18:45 93 12/17/21 18:30 95 12/17/21 18:29 99 12/17/21 18:18 93 Transfer of Care Handoff Completed per policy Notes Mental Status: alert / awake / arousable Patient Amnestic to Procedure: Yes Nausea / Vomiting: adequately controlled Pain: adequately controlled Airway Patency, RR, SpO2: stable & adequate BP & HR: stable & adequate Hydration State: stable & adequate Anesthetic Complications: no major complications apparent
--- NOTE | 2021-12-18 12:34 | Fluoroscopy Report ---
[place] ERCP biliary ductal CLINICAL HISTORY: EXPLORE DUCTS COMPARISON STUDY: Abdomen and pelvis CT 12/09/2021. FLUOROSCOPY TIME: 54 seconds. FINDINGS: 10 fluoroscopic spot images the right upper quadrant demonstrate cannulation of the ampulla with injection of contrast into the bile ducts. A balloon sweep was performed. IMPRESSION: Fluoroscopic assistance provided for ERCP. ACT 112: Negative or not required by law. Electronically signed by: Shawn Presley M.D. 12/18/2021 12:33 PM
--- NOTE | 2021-12-18 13:47 | Electrocardiogram Report ---
Test Reason : Blood Pressure : / mmHG Vent. Rate : 064 BPM Atrial Rate : 064 BPM P-R Int : 144 ms QRS Dur : 154 ms QT Int : 506 ms P-R-T Axes : 035 149 023 degrees QTc Int : 522 ms Atrial-sensed ventricular-paced rhythm Abnormal ECG When compared with ECG of 17-DEC-2021 18:11, (unconfirmed) Vent. rate has decreased BY 42 BPM Confirmed by Pawan Pino ([id number]) on 12/18/2021 1:47:01 PM Referred By: REFERRED SELF Confirmed By:Pawan Pino
--- NOTE | 2021-12-18 14:10 | Hospitalist Progress Note ---
Date of Service December 18, 2021 Assessment & Plan (1) Acute cholangitis due to calculus of bile duct with obstruction: Plan: s/p ERCP 12/18 - stones with pus found. Antibiotics for 10 days (will continue on Zosyn until blood cultures negative @ 48 hours) Plan to remove biliary stent in 6-8 weeks. No NSAIDs or anticoagulation for 5 days. Clear liquid diet. Trend LFTs/lipase. (2) Nausea & vomiting: Plan: See above (3) Elevated troponin I level: Plan: Downtrending. TTE with normal LVEF. No regional wall abnormalities. No significa nt change from 06/2021. Suspect demand -ischemia in setting of acute cholangitis (4) Pacemaker: Plan: See above (5) HTN (hypertension): Plan: Hold amlodipine. Continue metoprolol succinate 25mg PO daily. (6) Hyponatremia: Plan: Improving with IV fluids. 126 -> 132. 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 No fever or chills. Tolerating clear liquids. No nausea or vomiting. Passing gas. No BM since admission. Updated her son over the phone. Review of Systems Review of Systems: All systems reviewed & are unremarkable except as noted in Subjective Results & Data Results & Data ([facility]) Vital Signs (Past 12 Hours) Vital Signs Temp Pulse Pulse Resp BP BP Pulse Ox 12/18/21 12:51 36.8 C 74 130/72 92 12/18/21 12:25 37.1 C 74 15 140/68 94 12/18/21 12:15 77 19 117/54 L 95 12/18/21 12:05 76 19 113/73 94 12/18/21 11:55 79 17 105/53 L 94 12/18/21 11:48 36.6 C 81 20 115/55 L 92 12/18/21 10:34 36.7 C 77 20 94 12/18/21 08:02 37 C 74 18 170/81 H 93 12/18/21 03:35 36.7 C 75 18 142/67 H 95 PG Care Time/CCT Total # of Minutes Spent Total Time Spent with Patient: Total time spent is greater than 50% in coordination of care (as documented) at patient's floor/unit and/or counseling patient: Coding Level of Care Code 10776 Subseq Hosp Care Lvl 3 Diagnoses Nausea & vomiting R11.2 Vomiting type: unspecified Elevated troponin I level R77.8 Pacemaker Z95.0 HTN (hypertension) I10 Hyponatremia E87.1 Gastroesophageal reflux disease without esophagitis K21.9 Chronic inflammatory demyelinating polyneuropathy G61.81 Bipolar disorder F31.9 Anxiety disorder F41.9 B12 deficiency E53.8 MGUS (monoclonal gammopathy of unknown significance) D47.2 Acute cholangitis due to calculus of bile duct with obstruction K80.33 (1) Nausea & vomiting Vomiting type: unspecified Qualified Code(s): R11.2 - Nausea with vomiting, unspecified
[2021-12-18] MEDS: METOPROLOL SUCC 50MG EXT REL TAB PO SCH (15:27)
--- NOTE | 2021-12-18 16:32 | Communication Note ---
Date of Service: December 18, 2021 The patient underwent urgent ERCP today for suspected cholangitis. We did find evidence of stone and pus within the common bile duct. A biliary stent was placed. Recommendations Avoid use of nonsteroidals and anticoagulation for 5 days please Patient may have clear liquids this evening Antibiotic coverage for total of 10 days We will plan on biliary stent removal in approximately 6 to 8 weeks
[2021-12-18] MEDS: buPROPion SR 100 MG TABCR PO SCH (20:14)
[2021-12-18] MEDS: GABAPENTIN 400 MG CAP PO SCH (20:15)
[2021-12-18] MEDS: LURASIDONE HCL 40 MG TAB PO SCH (20:15)
[2021-12-18] MEDS ORDERED: GABAPENTIN 400 MG CAP PO SCH (21:00)
[2021-12-19] MEDS: PIPERACILLIN/TAZOBACTAM 4.5 GM in DEXTROSE 5% 100 ML IV SCH ×3 (01:51→17:56)
[2021-12-19 08:59] LABS: Basophils # (auto) 0.02 K/uL (0-0.2); Basophils % (auto) 0.1 %; Eosinophils # (auto) 0.16 K/uL (0-0.5); Hematocrit (blood only) 36.1 % (37-47); Hemoglobin 12.2 g/dL (12.0-16.0); Immature Granulocytes # (auto) 0.08 K/uL (0.00-0.02); Immature Granulocytes % (auto) 0.5 %; Lymphocytes # (auto) 2.07 K/uL (1.2-3.4); Mean Corpuscular Hemoglobin 29.8 pg (25-34); Mean Corpuscular Hgb Conc 33.8 g/dL (32-36); Mean Corpuscular Volume 88.3 fL (80-100); Mean Platelet Volume 9.1 fL (7.4-10.4); Monocytes # (auto) 1.89 K/uL (0.11-0.59); Monocytes % (auto) 11.8 %; Neutrophils # (auto) 11.73 K/uL (1.4-6.5); Neutrophils % (auto) 73.6 %; Platelet Count 242 K/uL (130-400); RDW Coefficient of Variation 14.8 % (11.5-14.5); Red Blood Count 4.09 M/uL (4.2-5.4); White Blood Count 15.95 K/uL (4.8-10.8)
[2021-12-19] MEDS: buPROPion SR 100 MG TABCR PO SCH ×2 (09:30→19:47)
[2021-12-19] MEDS: FAMOTIDINE 20 MG in SYRINGE 3 ML IV SCH (09:30)
[2021-12-19] MEDS: METOPROLOL SUCC 50MG EXT REL TAB PO SCH (09:31)
[2021-12-19] MEDS: PANTOprazole 40 MG TAB PO SCH (09:31)
[2021-12-19] MEDS: GABAPENTIN 400 MG CAP PO SCH ×3 (09:31→19:47)
[2021-12-19] MEDS: SERTRALINE HCL 50 MG TABLET PO SCH (09:31)
[2021-12-19 09:52] LABS: BUN Creatinine Ratio 13.7 (10-20); Bilirubin,Total 1.2 mg/dl (0.2-1.0); Calcium 8.4 mg/dl (8.5-10.1); Creatinine Clr Calc Pharmacy 95.7 ml/min; Est GFR (African American) 102.3 ml/min; Est GFR (Non-African American) 88.3 ml/min; Globulin 2.9 gm/dl (2.5-4.0); Potassium 3.6 mmol/L (3.5-5.1); Total Protein 5.9 gm/dl (6.0-8.3)
--- NOTE | 2021-12-19 18:43 | Hospitalist Progress Note ---
Date of Service December 19, 2021 Assessment & Plan (1) Acute cholangitis due to calculus of bile duct with obstruction: Plan: s/p ERCP 12/18 - stones with pus found. Antibiotics for 10 days (will continue on Zosyn until blood cultures negative @ 48 hours) Plan to remove biliary stent in 6-8 weeks. No NSAIDs or anticoagulation for 5 days. Advance diet today as tolerated LFTs, WBC improving (2) Nausea & vomiting: Plan: See above (3) Elevated troponin I level: Plan: Downtrending. TTE with normal LVEF. No regional wall abnormalities. No significant change from 06/2021. Suspect demand-ischemia in setting of acute cholangitis (4) Pacemaker: Plan: See above (5) HTN (hypertension): Plan: Continue to hold amlodipine. Continue metoprolol succinate 25mg PO daily. (6) Hyponatremia: Plan: Improving with IV fluids. 126 -> 132. 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 No abdminal pain, nausea or vomiting. Out of bed to chair today. No fever or chills. Review of Systems Review of Systems: All systems reviewed & are unremarkable except as noted in Subjective Physical Exam Constitutional: WD/WN, vitals as above Eyes: PERRL, conjunctivae normal, anicteric sclerae ENMT: external ear and nose normal, oropharynx normal Neck: trachea midline, no thyromegaly Respiratory: normal respiratory effort, lungs clear to auscultation Cardiovascular: RRR, no murmur, no edema Gastrointestinal (Abdomen): normal bowel sounds, soft, nontender, no hepatosplenomegaly Musculoskeletal: no cyanosis or clubbing, extremities motor strength 5/5 Skin: no rashes, warm and dry Neurologic: moves all extremities and awake; not confused Psychiatric: A+Ox3, euthymic affect Results & Data Results & Data ([facility]) Vital Signs (Past 12 Hours) Vital Signs Temp Pulse Pulse Resp BP BP Pulse Ox 12/19/21 15:34 36.7 C 61 18 137/83 93 12/19/21 09:56 71 12/19/21 07:27 36.9 C 66 18 138/71 93 PG Care Time/CCT Total # of Minutes Spent Total Time Spent with Patient: Total time spent is greater than 50% in coordination of care (as documented) at patient's floor/unit and/or counseling patient: Coding Level of Care Code 40219 Subseq Hosp Care Lvl 2 Diagnoses Acute cholangitis due to calculus of bile duct with obstruction K80.33 Nausea & vomiting R11.2 Vomiting type: unspecified Elevated troponin I level R77.8 Pacemaker Z95.0 HTN (hypertension) I10 Hyponatremia E87.1 Gastroesophageal reflux disease without esophagitis K21.9 Chronic inflammatory demyelinating polyneuropathy G61.81 Bipolar disorder F31.9 Anxiety disorder F41.9 B12 deficiency E53.8 MGUS (monoclonal gammopathy of unknown significance) D47.2 (1) Nausea & vomiting Vomiting type: unspecified Qualified Code(s): R11.2 - Nausea with vomiting, unspecified
[2021-12-19] MEDS: LURASIDONE HCL 40 MG TAB PO SCH (19:47)
[2021-12-20] MEDS: PIPERACILLIN/TAZOBACTAM 4.5 GM in DEXTROSE 5% 100 ML IV SCH ×3 (01:49→17:35)
[2021-12-20 06:21] LABS: Basophils # (auto) 0.03 K/uL (0-0.2); Basophils % (auto) 0.3 %; Eosinophils # (auto) 0.27 K/uL (0-0.5); Eosinophils % (auto) 2.3 %; Hematocrit (blood only) 35.9 % (37-47); Hemoglobin 11.8 g/dL (12.0-16.0); Immature Granulocytes # (auto) 0.04 K/uL (0.00-0.02); Immature Granulocytes % (auto) 0.3 %; Lymphocytes # (auto) 2.79 K/uL (1.2-3.4); Lymphocytes % (auto) 24.2 %; Mean Corpuscular Hemoglobin 29.1 pg (25-34); Mean Corpuscular Hgb Conc 32.9 g/dL (32-36); Mean Corpuscular Volume 88.6 fL (80-100); Monocytes # (auto) 1.27 K/uL (0.11-0.59); Neutrophils # (auto) 7.15 K/uL (1.4-6.5); Neutrophils % (auto) 61.9 %; Platelet Count 302 K/uL (130-400); RDW Coefficient of Variation 14.7 % (11.5-14.5); RDW Standard Deviation 47.9 fL (36.4-46.3); Red Blood Count 4.05 M/uL (4.2-5.4); White Blood Count 11.55 K/uL (4.8-10.8)
[2021-12-20 06:54] LABS: BUN Creatinine Ratio 16.1 (10-20); Bilirubin,Total 1.1 mg/dl (0.2-1.0); Calcium 8.4 mg/dl (8.5-10.1); Creatinine Clr Calc Pharmacy 78.7 ml/min; Est GFR (Non-African American) 82.8 ml/min; Potassium 3.6 mmol/L (3.5-5.1)
[2021-12-20] MEDS: SERTRALINE HCL 50 MG TABLET PO SCH (09:35)
[2021-12-20] MEDS: GABAPENTIN 400 MG CAP PO SCH ×3 (09:36→19:25)
[2021-12-20] MEDS: PANTOprazole 40 MG TAB PO SCH (09:36)
[2021-12-20] MEDS: buPROPion SR 100 MG TABCR PO SCH ×2 (09:37→19:25)
[2021-12-20] MEDS: METOPROLOL SUCC 50MG EXT REL TAB PO SCH (09:37)
[2021-12-20] MEDS: oxyCODONE/ACETAMINOPHEN 5mg/325mg TAB PO PRN (09:42)
--- NOTE | 2021-12-20 10:04 | Hospitalist Progress Note ---
Date of Service December 20, 2021 Assessment & Plan (1) Acute cholangitis due to calculus of bile duct with obstruction: Plan: s/p ERCP 12/18 - stones with pus found. Antibiotics for 10 days - switch Zosyn to Augmentin today for total 10 days post ERCP. Plan to remove biliary stent in 6-8 weeks. No NSAIDs for 10 days. No anticoagulation for 5 days per GI recommendations. Tolerating advanced diet. LFTs, WBC improving. (2) Nausea & vomiting: Plan: See above (3) Elevated troponin I level: Plan: Downtrending. TTE with normal LVEF. No regional wall abnormalities. No significant change from 06/2021. Suspect demand-ischemia in setting of acute cholangitis. (4) Pacemaker: Plan: See above. (5) HTN (hypertension): Plan: Continue to hold amlodipine. Continue metoprolol succinate 25mg PO daily. (6) Hyponatremia: Plan: Improving with IV fluids. 126 -> 132. (7) Gastroesophageal reflux disease without esophagitis: Plan: Continue famotidine 20mg IV BID. (8) Chronic inflammatory demyelinating polyneuropathy: Plan: CIDP/MGUS- As outpatient on gabapentin, IVIG every 30 days, and Percocet twice daily as needed. (9) Bipolar disorder: Plan: Bipolar disorder/anxiety disorder- Restart on patients usual bupropion, gabapentin (reduced dose to avoid sedation), lurasidone, and sertraline. (10) Anxiety disorder: Plan: See above. (11) B12 deficiency: Plan: Resume supplementation. 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 Plan: VTE Prophyalxis - avoid chemical prophylaxis per GI recommendations for 5 days Diet - heart healthy Disposition - continued admission on med/surg Admission and Anticipated Discharge Date Admission Date: December 17, 2021 Subjective No fever, chills, abdominal pain, nausea or vomiting. Feels about 40 % back to her baseline. 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 Does not feel ready to go home today. Review of Systems Review of Systems: All systems reviewed & are unremarkable except as noted in Subjective Physical Exam Constitutional: WD/WN, vitals as above Respiratory: normal respiratory effort, lungs clear to auscultation Cardiovascular: RRR, no murmur, no edema Gastrointestinal (Abdomen): normal bowel sounds, soft, nontender, no hepatosplenomegaly Musculoskeletal: no cyanosis or clubbing, extremities motor strength 5/5 Skin: no rashes, warm and dry Neurologic: moves all extremities and awake; not confused Psychiatric: A+Ox3, euthymic affect Results & Data Results & Data ([facility]) Vital Signs (Past 12 Hours) Vital Signs Temp Pulse Resp BP BP Pulse Ox 12/20/21 06:40 36.9 C 62 18 147/70 H 94 12/19/21 23:28 36.6 C 69 18 153/77 H 93 PG Care Time/CCT Total # of Minutes Spent Total Time Spent with Patient: Total time spent is greater than 50% in coordination of care (as documented) at patient's floor/unit and/or counseling patient: Coding Level of Care Code 68029 Subseq Hosp Care Lvl 2 Diagnoses Acute cholangitis due to calculus of bile duct with obstruction K80.33 Nausea & vomiting R11.2 Vomiting type: unspecified Elevated troponin I level R77.8 Pacemaker Z95.0 HTN (hypertension) I10 Hyponatremia E87.1 Gastroesophageal reflux disease without esophagitis K21.9 Chronic inflammatory demyelinating polyneuropathy G61.81 Bipolar disorder F31.9 Anxiety disorder F41.9 B12 deficiency E53.8 MGUS (monoclonal gammopathy of unknown significance) D47.2 (1) Nausea & vomiting Vomiting type: unspecified Qualified Code(s): R11.2 - Nausea with vomiting, unspecified
[2021-12-20] MEDS: LURASIDONE HCL 40 MG TAB PO SCH (19:26)
[2021-12-21] MEDS ORDERED: ENOXAPARIN INJ 40 MG/0.4 ML SYR SQ SCH (09:00)
[2021-12-21] MEDS: METOPROLOL SUCC 50MG EXT REL TAB PO SCH (09:18)
[2021-12-21] MEDS: PANTOprazole 40 MG TAB PO SCH (09:18)
[2021-12-21] MEDS: SERTRALINE HCL 50 MG TABLET PO SCH (09:18)
[2021-12-21] MEDS: GABAPENTIN 400 MG CAP PO SCH ×2 (09:18→13:50)
[2021-12-21] MEDS: oxyCODONE/ACETAMINOPHEN 5mg/325mg TAB PO PRN (09:18)
[2021-12-21] MEDS: buPROPion SR 100 MG TABCR PO SCH (09:18)
--- NOTE | 2021-12-21 15:09 | Discharge Summary ---
Date of Service December 21, 2021 Admission HPI Per Admitting Provider The patient is an 86-year-old female with a past medical history including hypertension, CHF, status post pacemaker, MGUS, lumbosacral radiculopathy, pulmonary nodules, PVCs, PACs, occipital neuralgia, legally blind, gout, GERD, diastolic dysfunction, thoracic facet syndrome, anxiety disorder, bipolar disorder and opiate dependence. She presents with symptoms as noted above. Work-up in the emergency department include the following significant abnormal laboratories: WBC 23.54 with left shift, sodium 126, potassium 3.2, chloride 94, glucose 103, mag 1.5, total bilirubin 4.5, AST 197, ALT 168, alk phos 175, highly sensitive troponin troponin 76.7, lipase 448, procalcitonin 5.37. Patient was COVID-[address] scan of abdomen and pelvis: No acute findings. CT scan of head was negative for acute findings Principal Diagnosis Acute cholangitis (infection of the bile duct) Obstructive jaundice Discharge Exam Constitutional WD/WN, vitals as above ENMT external ear and nose normal, oropharynx normal Respiratory normal respiratory effort, lungs clear to auscultation Cardiovascular RRR, no murmur, no edema Gastrointestinal (Abdomen) normal bowel sounds, soft, nontender, no hepatosplenomegaly Musculoskeletal no cyanosis or clubbing, extremities motor strength 5/5 Skin no rashes, warm and dry Neurologic moves all extremities and awake; not confused Psychiatric A+Ox3, euthymic affect Discharge Data Allergies Allergy/AdvReac Type Severity Reaction Status Date / Time prednisone Allergy Severe ANAPHYLAXIS Verified 12/17/21 19:27 metronidazole Allergy Unknown RASH, FEVER Verified 12/17/21 19:27 LaMICtal TABS Allergy Mild rash Uncoded 12/17/21 19:27 Pred Forte SUSP Allergy Mild rash Uncoded 12/17/21 19:27 Flagyl TABS Allergy rash Uncoded 12/17/21 19:27 indomethacin AdvReac rash Uncoded 12/17/21 19:27 Consultations 12/17/21 21:10 ED Decision to Admit Stat Procedures Performed Operation Date: 12/18/21 12:40 Actual Procedures p Endoscopic Retrograde Cholangiopancreato Chun Cota DO Ordered Studies 12/17/21 18:35 CT abd pelvis IV con only Stat IMPRESSION: 1. No acute intra-abdominal or pelvic abnormality. 2. Additional nonacute findings are delineated above. CT head/brain wo con Stat IMPRESSION: 1. No acute intracerebral pathology. 2. Atrophy and small vessel disease. 12/18/21 [place] ERCP biliary ductal Routine Hospital Course (1) Acute cholangitis due to calculus of bile duct with obstruction: Shira Patel is an 86 year old female admitted to [facility] from December 17 to December 21, 2021 due to abdominal pain, nausea, vomiting, confusion and fevers. She was diagnosed with acute cholangitis due to bile duct stones. This was treated with intravenous Zosyn and ERCP with one biliary stent insertion into the common bile duct performed by Dr. Cota on December 18. She made a good recovery and is now medically stable for discharge home with home health. She will continue antibiotics with Augmentin for total of 10 days post ERCP (7 further days). Due to relatively low blood pressure during her inpatient stay your amlodipine was discontinued. Recommend this is continued on discharge but at half her usual 10mg dose at 5 mg PO daily. (2) Nausea & vomiting: (3) Elevated troponin I level: (4) Pacemaker: (5) HTN (hypertension): (6) Hyponatremia: (7) Gastroesophageal reflux disease without esophagitis: (8) Chronic inflammatory demyelinating polyneuropathy: (9) Bipolar disorder: (10) Anxiety disorder: (11) B12 deficiency: (12) MGUS (monoclonal gammopathy of unknown significance): Total Time Total Time Spent Total Time Spent (In Minutes): 40 Discharge Plan Discharge Items Patient Disposition: Home - Home Health Services Reason For Visit: ELEVATED TROPONIN,ABNORMAL LFT'S,HYPONATREMIA Discharge Diagnosis: Acute cholangitis (infection of the bile duct) Obstructive jaundice Activity: Resume your previous activity Non-emergency contact: Primary Care Provider Call non-emergency contact if: you have any medication questions and your symptoms worsen Follow-up/Referrals: Janice Erickson DO [Primary Care Provider] - 12/28/21 10:20 am Maribell Cota DO [Physician] - (6 to 8 weeks for repeat ERCP and biliary stent removal) Diet: Low Fat Addtl Attending Provider Instructions: You are admitted to [facility] from December 17 to December 21, 2021 due to abdominal pain, nausea, vomiting, confusion and fevers. He was diagnosed with acute cholangitis (infection of your bile duct) due to bile stones. This was treated with broad-spectrum antibiotics and ERCP (endoscopic retrograde cholangiopancreatography) and 1 biliary stent insertion into the common bile duct performed by Dr. Cota on December 18. He made good recovery and is now medically stable for discharge home with home health. You will continue antibiotics (Augmentin) for total of 10 days post ERCP (7 further days). Due to relatively low blood pressure during her inpatient stay your amlodipine was discontinued. Recommend this is continued on discharge but at half your usual dose 5 mg daily. Pending Studies at Discharge: No Stand-Alone Forms: [facility] Medications and DC Order Prescriptions: Continued Latuda 40 mg tablet 40 mg PO QPM RF: 0 simethicone 80 mg tablet,chewable 80 mg PO DAILY PRN (Reason: Abdominal Discomfort) RF: 0 Gaviscon 80-14.2 mg tablet,chewable 1 tab PO DAILY PRN (Reason: Indigestion) RF: 0 polyethylene glycol 3350 [Miralax] 17 gram powder in packet 17 gm PO DAILY PRN (Reason: Constipation) RF: 0 cholecalciferol (vitamin D3) 5,000 unit capsule 5,000 units PO DAILY RF: 0 cyanocobalamin (vitamin B-12) 1,000 mcg capsule 1,000 mcg PO DAILY RF: 0 Gammagard S-D (IgA < 1 mcg/mL) 10 gram recon soln 30 gm IV .COMPLEX 30 Days Qty: 3 RF: 11 metoprolol succinate 25 mg tablet extended release 24 hr 50 mg PO QAM Qty: 180 RF: 1 sertraline 50 mg tablet 50 mg PO DAILY Qty: 30 RF: 2 gabapentin 400 mg capsule 800 mg PO TID 30 Days Qty: 180 RF: 5 zoledronic sxnr-cypvvlpk-hvdot [Reclast] 5 mg/100 mL piggyback See Rx Instructions .ROUTE .COMPLEX Qty: 100 RF: 0 furosemide 20 mg tablet 20 mg PO DAILY PRN (Reason: edema) Qty: 90 RF: 1 bupropion HCl [Wellbutrin SR] 100 mg tablet sustained-release 12 hr 100 mg PO BID RF: 0 pantoprazole 40 mg tablet,delayed release (DR/EC) 40 mg PO DAILY Qty: 90 RF: 3 oxycodone-acetaminophen [Percocet] 5-325 mg tablet 1 tab PO BID PRN (Reason: pain) RF: 0 triamcinolone acetonide 0.1 % ointment 1 applic TOP BID PRN (Reason: Rash) RF: 0 Discontinued amlodipine 10 mg tablet 10 mg PO QPM Qty: 90 RF: 1 No Action amlodipine 5 mg tablet 5 mg PO QPM Qty: 90 RF: 1 Discharge Orders: Discharge Order (Routine); Ordered 12/21/21 Ordered By: Pedro Dominguez Admission Data Admit Date/Time: 12/17/21 23:08 Attending Provider: Pedro Dominguez Admit Provider: Chepe Jimenez Primary Care Provider: Janice Erickson Other Providers: Chepe Jimenez ; Maribell Cota Other Interventions: Discharge Summary Assessment (RN) Last Done: 12/21/21 15:15 Coding Level of Care Code D/C DAY MANAGEMENT >30 MINS Diagnoses Acute cholangitis due to calculus of bile duct with obstruction K80.33 Nausea & vomiting R11.2 Vomiting type: unspecified Elevated troponin I level R77.8 Pacemaker Z95.0 HTN (hypertension) I10 Hyponatremia E87.1 Gastroesophageal reflux disease without esophagitis K21.9 Chronic inflammatory demyelinating polyneuropathy G61.81 Bipolar disorder F31.9 Anxiety disorder F41.9 B12 deficiency E53.8 MGUS (monoclonal gammopathy of unknown significance) D47.2 Home Health Attestation I certify that this patient is under my care and that I, or a physicians content assistant working with me, had a face to-face encounter that meets the home health [id number] encounter requirements with this patient. The encounter with the patient was in whole, or in part, for the following medical condition, which is the primary reason for home health care (list medical condition): hyponatremia, abnormal LFT's I certify that, based on my findings, the following services are medically necessary home health services: My clinical findings support the need for the above services because: OT Assess ADL Status and Restore Function w ADLs PT Assessment for Endurance / Balance / Strength PT Eval for Safety and Mobility PT Eval for Safety, Gait Training, Assistive Devices PT Gait and Balance Training, Strengthening and Safety Skilled Nsg Assessment Skilled Nsg Assess Pt Illness, Disease and Sx Monitoring Further, I certify that my clinical findings support that this patient is homebound (i.e. absences from home require considerable and taxing effort and are for medical reasons or religion services or infrequently or of short duration when for other reasons) because: Transportation Assistance/Unable to Leave Home Unassisted Certification for Home Health Services: Based on the above findings, I certify that this patient is confined to the home and needs intermittent mcc care, physical therapy and/or speech therapy or continues to need occupational therapy. The patient is under my care, and I have initiated the establishment of the plan of care. This patient will be followed by a physician who will periodically review the plan of care.
[2021-12-21] MEDS ORDERED: AMOXICILLIN/CLAVULANATE 875 MG TAB PO SCH (18:00)
== END 2021-12-21 16:33 | disposition home health service (06) | DRG 445 ==
LOC: ED 18:03 → 2N 23:08 → SUATTDRO 23:08 → 2N 12-18 00:11
DX: Z96.642 Presence of left artificial hip joint; E53.8 Deficiency of other specified B group vitamins; K80.33 Calculus of bile duct with acute cholangitis with obstruction; F31.9 Bipolar disorder, unspecified; F17.210 Nicotine dependence, cigarettes, uncomplicated; R09.02 Hypoxemia; I11.0 Hypertensive heart disease with heart failure; I50.32 Chronic diastolic (congestive) heart failure; E87.6 Hypokalemia; Z96.651 Presence of right artificial knee joint; G61.81 Chronic inflammatory demyelinating polyneuritis; Z95.0 Presence of cardiac pacemaker; D47.2 Monoclonal gammopathy; Z88.8 Allergy status to other drugs, medicaments and biological substances; E87.1 Hypo-osmolality and hyponatremia; F41.9 Anxiety disorder, unspecified